=== PATIENT | male | born 1950 | race Caucasian/White ===

== ENCOUNTER 2017-09-29 07:58 | Day surgery (SDC) | END 2017-09-29 10:24 | disposition home or self-care (01) ==

== ENCOUNTER 2018-07-09 10:30 | Inpatient (IN) | payer MEDICARE, OTHER ==
[~2018-07-09] VITALS: Ht 167.6 cm; Wt 154.4 kg
[~2018-07-09 10:30] MED LIST: AMIT10TA6; ASPI-727; BENA5TAB33; CRES5; FELO2.5T3; HYDR25TA6; METF500T3; METO5VIA28; PIOG15TA12
--- NOTE | 2018-07-09 12:35 | ERD ---
ER Documentation Chief Complaint Chief Complaint right arm swelling, red, hot to touch sent by Dr. Libby DYE The patient is 68-year-old male, presenting to the ER because of right breast and right forearm redness and swelling for the last 6 weeks, has been taking antibiotic for the last 8 days with minimal response, seen by his physician Dr. Souza today who was sent him to the ER. He also had right breast biopsy, awaiting for results. He denies fever, chills, neck pain, chest pain, nipple discharge, abdominal pain, vomiting, dizzy, diarrhea. He does not smoke nor drink Past medical history: Dyslipidemia, diabetes mellitus, hypertension, CAD, hypothyroidism Past surgical history: CABG ROS All systems reviewed and are negative except as per history of present illness. Medications Home Meds Reported Medications Aspirin* (Aspirin* EC) 81 Mg Tablet.dr, 81 MG PO DAILY, TAB 07/09/18 Levothyroxine Sodium* (Levothyroxine Sodium*) 25 Mcg Tablet, 25 MCG PO BEFORE BREAKFAST, #30 TAB 07/09/18 Tamsulosin Hcl* (Flomax*) 0.4 Mg Cap.er.24h, 0.4 MG PO HS, CAP 07/09/18 Nortriptyline Hcl* (Nortriptyline Hcl*) 10 Mg Capsule, 10 MG PO HS, CAP 07/09/18 Pioglitazone Hcl* (Pioglitazone Hcl*) 45 Mg Tablet, 45 MG PO DAILY, TAB 07/09/18 Atorvastatin* (Atorvastatin*) 40 Mg Tablet, 40 MG PO QHS, #30 TAB 07/09/18 Metoprolol Succinate* (Toprol XL*) 50 Mg Tab.er.24h, 50 MG PO DAILY, #30 TAB 07/09/18 Hydrochlorothiazide* (Hydrochlorothiazide*) 25 Mg Tab, 25 MG PO DAILY, #30 TAB 07/09/18 Metformin Hcl* (Metformin Hcl*) 1,000 Mg Tablet, 1000 MG PO WITH BREAKFAST DINNE, #60 TAB 07/09/18 Cilostazol* (Cilostazol*) 100 Mg Tablet, 100 MG PO BID, TAB 07/09/18 Amlodipine Besylate* (Norvasc*) 10 Mg Tablet, 10 MG PO DAILY, TAB 07/09/18 Losartan Potassium* (Losartan Potassium*) 50 Mg Tablet, 50 MG PO DAILY, TAB 07/09/18 Discontinued Reported Medications Amitriptyline Hcl* (Amitriptyline Hcl*) 10 Mg Tablet 02/08/10 Rosuvastatin Calcium* (Crestor*) 5 Mg Tablet 02/08/10 Aspirin (Adult Aspirin) 81 Mg Tab.chew 02/08/10 Pioglitazone Hcl* (Actos*) 15 Mg Tablet 02/08/10 Felodipine* (Felodipine*) 2.5 Mg Tab.sr.24h 02/08/10 Benazepril Hcl* (Benazepril Hcl*) 5 Mg Tablet 02/08/10 Hydrochlorothiazide (Hydrochlorothiazide) 25 Mg Tablet 02/08/10 Metoprolol Tartrate* (Lopressor* Inj) 5 Mg/5 Ml Soln 02/08/10 Metformin* (Glucophage* XR) 500 Mg Tab.sr.24h 02/08/10 Allergies Allergies: Coded Allergies: No Known Allergies (Verified Allergy, Mild, 07/09/18) PMhx/Soc History of Surgery: Yes (CAD BYPASS GRAFT) Anesthesia Reaction: No Hx Neurological Disorder: No Hx Respiratory Disorders: No Hx Cardiac Disorders: Yes (HYPERTENSION) Hx Psychiatric Problems: No Hx Miscellaneous Medical Probl: Yes (HYPERLIPIDEMIA) Hx Alcohol Use: No Hx Substance Use: No Hx Tobacco Use: Yes Physical Exam Vitals Vital Signs Date Temp Pulse Resp B/P (MAP) Pulse Ox O2 O2 Flow FiO2 Time Delivery Rate 07/09/18 89 17 142/68 100 Room Air 14:21 (92) 07/09/18 97.4 101 18 143/66 98 10:35 (91) Physical Exam Const: No acute distress. Head: Atraumatic. Eyes: Normal Conjunctiva. ENT: Normal External Ears, Nose and Mouth. Neck: Full range of motion. No meningismus. Resp: Clear to auscultation bilaterally. Cardio: Regular rate and rhythm. Right breasts is erythematous, no crepitus Abd: Soft, non distended, normal bowel sounds, non tender. Skin: No petechiae or rashes. Back: No midline or flank tenderness. Ext: Right upper extremity is edematous/erythematous, no crepitus Neur: Awake and alert. No focal deficit Psych: Normal Mood and Affect. Result Diagram: 07/09/18 1346 07/09/18 1346 Results 24 hrs Laboratory Tests Test 07/09/18 13:46 White Blood Count 4.3 10^3/ul Red Blood Count 3.93 10^6/ul Hemoglobin 11.8 g/dl Hematocrit 37.4 % Mean Corpuscular Volume 95.2 fl Mean Corpuscular Hemoglobin 30.0 pg Mean Corpuscular Hemoglobin Concent 31.6 g/dl Red Cell Distribution Width 15.9 % Platelet Count 191 10^3/UL Mean Platelet Volume 9.7 fl Immature Granulocytes % 0.200 % Neutrophils % 60.2 % Lymphocytes % 23.7 % Monocytes % 10.5 % Eosinophils % 4.7 % Basophils % 0.7 % Nucleated Red Blood Cells % 0.0 /100WBC Immature Granulocytes # 0.010 10^3/ul Neutrophils # 2.6 10^3/ul Lymphocytes # 1.0 10^3/ul Monocytes # 0.5 10^3/ul Eosinophils # 0.2 10^3/ul Basophils # 0.0 10^3/ul Nucleated Red Blood Cells # 0.0 10^3/ul Sodium Level 141 mmol/L Potassium Level 4.1 mmol/L Chloride Level 106 mmol/L Carbon Dioxide Level 27 mmol/L Anion Gap 8 Blood Urea Nitrogen 18 mg/dl Creatinine 0.75 mg/dl Est Glomerular Filtrat Rate mL/min > 60 mL/min Glucose Level 119 mg/dl Calcium Level 9.3 mg/dl Current Medications Medications Dose Sig/Billy Start Time Status Last (Trade) Ordered Route PRN Stop Time Admin Dose Reason Admin 150 ml @ ONCE ONCE 07/09/18 DC Levofloxacin/ 100 mls/hr IVPB 15:00 07/09/18 Dextrose 15:20 Vancomycin 250 ml @ ONCE ONCE 07/09/18 UNV HCl 125 mls/hr IVPB 15:00 07/09/18 16:59 Amlodipine 10 mg DAILY PO 07/10/18 Besylate 09:00 (Norvasc) Aspirin 81 mg DAILY PO 07/10/18 (Halfprin) 09:00 40 mg QHS PO 07/09/18 Atorvastatin 21:00 Calcium (Lipitor) Cilostazol 100 mg BID PO 07/09/18 (Pletal) 21:00 25 mg DAILY PO 07/10/18 Hydrochloroth 09:00 iazide (Hydrochlorot hiazide) 25 mcg BEFORE 07/10/18 Levothyroxine BREAKFAST 07:00 Sodium PO (Synthroid) Losartan 50 mg DAILY PO 07/10/18 Potassium 09:00 (Cozaar) Metoprolol 50 mg DAILY PO 07/10/18 Succinate 09:00 (Toprol Xl) 10 mg HS PO 07/09/18 Nortriptyline 21:00 HCl (Aventyl) Tamsulosin 0.4 mg HS PO 07/09/18 HCl 21:00 (Flomax) IV Flush 3 ml PER 07/09/18 (NS 3 ml) PROTOCOL IV 15:30 Ondansetron 4 mg Q6H PRN 07/09/18 HCl (Zofran IV 15:30 Inj) NAUSEA/VOMITI NG 650 mg Q6H PRN 07/09/18 Acetaminophen PO .PAIN 1-3 15:30 (Tylenol OR TEMP Tab) 1 tab Q6H PRN 07/09/18 Acetaminophen PO .PAIN 4-6 15:30 / Hydrocodone Bitart ([place] (5/325)) Morphine 2 mg Q4H PRN 07/09/18 Sulfate IV .PAIN 15:30 (morphine) 7-10 Vancomycin VANCOMYCIN PER 07/09/18 UNV HCl (Vanco PER PHARMACY PROTOCOL XX 15:30 Iv Per Pharmacy) Piperacillin 100 ml @ Q6 IVPB 07/09/18 Sod/ 200 mls/hr 18:00 Tazobactam Sod Sodium 1,000 ml @ Q10H IV 07/09/18 Chloride 100 mls/hr 16:00 07/10/18 01:59 Procedures/[place] [id number] Radiology Main Line: [phone] DIAGNOSTIC IMAGING REPORT Patient: HUMBERTO MACIEL : 1950 Age: 68 Sex: M MR #: [id number] DOS: 07/09/18 1253 Ordering MD: EDVIN ROSENBAUM MD Location: E/R Room/Bed: PROCEDURE: US upper extremity Venous. CLINICAL INDICATION: Right arm edema TECHNIQUE: Multiple sonographic images of the right upper extremity venous system was obtained utilizing grayscale, color-flow, compressive sonography and doppler imaging with augmentation. The images were reviewed on a PACS workstation. COMPARISON: None. FINDINGS: The study is limited due to the patient's body habitus and edema. There is normal compressibility and flow within the right internal jugular vein, subclavian vein, axillary vein, brachial, basilic, cephalic , radial and ulnar veins. RPTAT: AA IMPRESSION: No sonographic evidence for venous thrombosis. .Juwan Snyder MD, MD Date Time Electronically viewed and signed by .Juwan Snyder MD, on 07/09/2018 14:03 .S/ CC: EDVIN ROSENBAUM MD [id number] MEDICAL MAKING DECISION: The baseline he is a 68-year-old male, presenting with acute RUE cellulitis, acute right mastitis, failed outpatient therapy. He was treated with Levaquin IV and vancomycin IV The differential diagnoses considered include but are not limited to cellulitis, abscess, DVT, malignancy, lymphedema Departure Diagnosis: Primary Impression: Cellulitis Additional Impressions: Mastitis, right, acute Leukopenia Anemia Condition: Stable Comments I discussed the findings with the patient. I discussed the patient with Dr Tapia at 2:50p , who was made aware of the lab, the treatment, the patient condition. The patient is admitted to [facility] Disclaimer: Inadvertent spelling and grammatical errors are likely due to EHR/dictation software use and do not reflect on the overall quality of patient care. Also, please note that the electronic time recorded on this note does not necessarily reflect the actual time of the patient encounter. EDVIN ROSENBAUM MD July 09, 2018 12:35
[2018-07-09] MEDS ORDERED: LOSA50TA14 PO (14:11)
[2018-07-09] MEDS ORDERED: AMLO-218 PO (14:11)
[2018-07-09] MEDS ORDERED: CILO100T PO (14:12)
[2018-07-09] MEDS ORDERED: METF100010 PO (14:13)
[2018-07-09] MEDS ORDERED: HYDR25TA6 PO (14:13)
[2018-07-09] MEDS ORDERED: METO-319 PO (14:14)
[2018-07-09] MEDS ORDERED: PIOG45TA64 PO (14:15)
[2018-07-09] MEDS ORDERED: ATOR40TA68 PO (14:15)
[2018-07-09] MEDS ORDERED: TAMS-14 PO (14:16)
[2018-07-09] MEDS ORDERED: NORT10CA2 PO (14:16)
[2018-07-09] MEDS ORDERED: LEVO25TA6 PO (14:17)
[2018-07-09] MEDS ORDERED: ASPI-817 PO (14:17)
[2018-07-09] MEDS ORDERED: LEVOFLOXACIN 750MG/D5W (PMX) 150 ML IVPB ONE (15:00)
[2018-07-09] MEDS ORDERED: VANCOMYCIN 1 GM (PMX) 250 ML IVPB ONE (15:00)
[2018-07-09] MEDS ORDERED: HYDROCODONE/APAP (5/325) TAB PO PRN (15:30)
[2018-07-09] MEDS ORDERED: ONDANSETRON 4 MG INJ IV PRN (15:30)
[2018-07-09] MEDS ORDERED: NACL 0.9% 3 ML SYG IV SCH (15:30)
[2018-07-09] MEDS ORDERED: VANCOMYCIN IV PER PHARMACY XX SCH (15:30)
[2018-07-09] MEDS ORDERED: ACETAMINOPHEN 325 MG TAB PO PRN (15:30)
[2018-07-09] MEDS ORDERED: morphine 2 MG INJ IV PRN (15:30)
--- NOTE | 2018-07-09 15:39 | PN ---
Date/Time of Note Date/Time of Note DATE: 07/09/18 TIME: 15:39 Objective Vitals Vital Signs Date Temp Pulse Resp B/P (MAP) Pulse Ox O2 O2 Flow FiO2 Time Delivery Rate 07/09/18 89 17 142/68 100 Room Air 14:21 (92) 07/09/18 97.4 10:35 Results Result Diagram: 07/09/18 1346 07/09/18 1346 Medications Medications Current Medications Vancomycin HCl 250 ml @ 125 mls/hr ONCE ONCE IVPB ; Start 07/09/18 at 15:00; Stop 07/09/18 at 16:59; Status UNV Amlodipine Besylate (Norvasc) 10 mg DAILY PO ; Start 07/10/18 at 09:00; Status UNV Aspirin (Halfprin) 81 mg DAILY PO ; Start 07/10/18 at 09:00; Status UNV Atorvastatin Calcium (Lipitor) 40 mg QHS PO ; Start 07/09/18 at 21:00; Status UNV Cilostazol (Pletal) 100 mg BID PO ; Start 07/09/18 at 21:00; Status UNV Hydrochlorothiazide (Hydrochlorothiazide) 25 mg DAILY PO ; Start 07/10/18 at 0 9:00; Status UNV Levothyroxine Sodium (Synthroid) 25 mcg BEFORE BREAKFAST PO ; Start 07/10/18 at 07:00; Status UNV Losartan Potassium (Cozaar) 50 mg DAILY PO ; Start 07/10/18 at 09:00; Status UNV Metoprolol Succinate (Toprol Xl) 50 mg DAILY PO ; Start 07/10/18 at 09:00; Status UNV Nortriptyline HCl (Aventyl) 10 mg HS PO ; Start 07/09/18 at 21:00; Status UNV Tamsulosin HCl (Flomax) 0.4 mg HS PO ; Start 07/09/18 at 21:00; Status UNV IV Flush (NS 3 ml) 3 ml PER PROTOCOL IV ; Start 07/09/18 at 15:30; Status UNV Ondansetron HCl (Zofran Inj) 4 mg Q6H PRN IV NAUSEA/VOMITING; Start 07/09/18 at 15:30; Status UNV Acetaminophen (Tylenol Tab) 650 mg Q6H PRN PO .PAIN 1-3 OR TEMP; Start 07/09/18 at 15:30; Status UNV Acetaminophen/ Hydrocodone Bitart ([place] (5/325)) 1 tab Q6H PRN PO .PAIN 4-6; Start 07/09/18 at 15:30; Status UNV Morphine Sulfate (morphine) 2 mg Q4H PRN IV .PAIN 7-10; Start 07/09/18 at 15:30; Status UNV Vancomycin HCl (Vanco Iv Per Pharmacy) VANCOMYCIN PER PHARMACY PER PROTOCOL XX ; Start 07/09/18 at 15:30; Status UNV Piperacillin Sod/ Tazobactam Sod 100 ml @ 200 mls/hr Q6 IVPB ; Start 07/09/18 at 18:00; Status UNV Lines/Catheters IV Catheter Type: Fraz[place] in Place: No Assessment/Plan Hospital Course Patient is a male with a past medical history significant for coronary artery bypass graft, BPH, hypertension, dyslipidemia, mood disorder, hypothyroidism who was sent in by his primary care provider for failing outpatient antibiotics for right breast cellulitis versus abscess. Patient does state that he has been following up in the office with his primary care provider and he actually had a biopsy of his right breast issue last Monday. Patient states that is becoming increasingly inflamed and erythematous which is why he went back to his primary care doctor. Per primary care doctor he stated that there was pus seen in the office. Patient also states that he has right upper extremity redness however that has been going on for the past month and a half and he is being addressed with his primary care provider as well. Otherwise patient feels within normal limits, denies chest pain other than where the cellulitis is located, denies shortness of breath, dizziness, abdominal pain, bowel or bladder dysfunction, leg pain. Objective Physical exam General: Patient is laying in bed and answers questions appropriately Mentation: Patient is alert and oriented 4, Head: Normocephalic atraumatic Eyes: EOMI, pupils reactive to light Neck: Supple, nontender, midline Respiratory: Clear to auscultation bilaterally Cardiovascular: regular rate, no obvious murmurs Gastrointestinal: non-tender to palpation, bowel sounds heard. Neurological: Moves all extremities spontaneously Skin: Right breast area, erythematous, no visualized pustular drainage. Right upper extremity forearm erythematous. Assessment and plan Right breast cellulitis with possible abscess -Patient received mammogram outpatient, biopsy was done by general surgeon last week, patient attempted Keflex outpatient however continued to be erythematous and drained pus. -Broad-spectrum IV antibiotic -Infectious disease consulted -CT scan with contrast ordered for possible abscess -Patient's general surgeon has been consulted, Dr. Mackay Right forearm erythema -Subacute at this time, been going on for approximately 6 weeks -We will also get CT of the right upper extremity to evaluate. -Duplex venous negative for DVT Coronary artery disease with history of CABG in 1999 -Continue home medications Diabetes mellitus -Patient's transactional attorney will be consulted, insulin for now Hypothyroidism -Continue home meds Mood disorder -Continue home meds Dyslipidemia -Continue home meds Hypertension -Continue home meds Disposition -Follow-up with CT scans, awaiting infectious disease and general surgery re commendations. REBECCA VO July 09, 2018 15:39
[2018-07-09] MEDS ORDERED: SOD CHLORIDE 0.9% 100 ML ONE (17:05)
[2018-07-09] MEDS ORDERED: IOHEXOL 300MG/ML 150 ML BTL ONE (17:05)
--- NOTE | 2018-07-09 18:12 | CONS ---
DATE OF ADMISSION: 07/09/2018 DATE OF CONSULTATION: 07/09/2018 TYPE OF CONSULTATION: Infectious disease. REASON FOR CONSULTATION: Antibiotic management. HISTORY OF PRESENT ILLNESS: Zelalem Castro is a 68-year-old male who presents with right arm swelling and sent in by Dr. Torres. His past problems include: 1. Coronary artery disease. 2. Status post coronary artery bypass grafting. 3. Hypertension. 4. Hyperlipidemia. Acutely, the patient comes in with cellulitis of the right arm. PAST MEDICAL HISTORY: Significant for: 1. Coronary artery disease. 2. Coronary artery bypass grafting. 3. BPH. 4. Hypertension. 5. Hyperlipidemia. 6. Mood disorder. 7. Hypothyroidism. FAMILY HISTORY: Noncontributory. SOCIAL HISTORY: He does smoke. He does not drink or abuse drugs. ALLERGIES: NONE TO PENICILLIN, SULFA OR FOODS. MEDICATIONS: Per chart. REVIEW OF SYSTEMS: Noncontributory. PHYSICAL EXAMINATION: GENERAL: The patient is a well-developed, well-nourished male who is alert, responsive, is lying in bed, in no acute distress. VITAL SIGNS: Stable. He is afebrile. SKIN: Without generalized rash. HEENT: Within normal limits. NECK: Supple. LYMPH NODES: None palpable. CHEST: Decreased breath sounds at the bases. THORAX: His right breast is erythematous. No visualized pustular drainage. HEART: Without murmur or gallop. ABDOMEN: Soft, nontender without organosplenomegaly or masses. EXTREMITIES: Without cyanosis, clubbing or edema. The right arm is swollen and red as noted. RECTAL AND GENITAL: Deferred. NEUROLOGIC: No focal neurological abnormality. IMPRESSION AND PLAN: The patient presents now with right lower extremity cellulitis. The patient wa s placed on vancomycin and Zosyn. The patient had a history of right breast cellulitis versus absces s, patient of Dr. Torres. The patient was given antibiotics for right breast cellulitis versus absc ess. He had a biopsy of the right breast tissue last Monday. It became increasingly inflamed and erythematous, which is why he went back to his primary care physician who noted some pus in the woun d itself. He has right upper extremity redness that has been going on for the past month and a half and this has been a problem that he is complaining of at this point. The patient has right breast ce llulitis with possible abscess. He received a mammogram, outpatient biopsy by I believe a general pineda rgeon probably Dr. Mackay. He was on Keflex as an outpatient, but the breast area became erythemato us and increasingly purulent. CT scan with contrast was ordered for possible abscess and Dr. Mackay was consulted, as well. He has right forearm erythema which has been going on for approximately 6 w eeks. We will get a CT scan of the right upper extremity to evaluate, duplex venous negative for xavi p venous thrombosis, coronary artery disease. He has numerous other problems. I will dictate my fin dings to Dr. Torres and also to Dr. Mackay. Dictated By: JULIAN BERRY MD, JD/ESTHER Conf#: [id number] DID#: [id number] CC: EDVIN ROSENBAUM MD;*End*
[2018-07-09 18:56] VITALS: BP 138/63; RESP 18
[2018-07-09 19:30] VITALS: BP 125/59; PULSE 103; RESP 18
--- NOTE | 2018-07-09 19:44 | CONS ---
Assessment/Plan Assessment/Plan Problems: (1) Type 2 diabetes mellitus without complications Status: Chronic Comment: Has been in good control on metformin alone as outpt. w/ good A1c. Will cont. metformin and add tradjenta while in-house for optimal control through this infection. (2) Hypothyroidism Status: Chronic Comment: Diagnosis in-doubt of hypothyroidism considering 153.6 kg male requiring only 25 mcg/d of LT4. However, have never seen any reason to stop this and thyroid hormone levels always good on this dose. Will cont. (3) Cellulitis Status: Acute Comment: Primary team to manage. Agree w/ vancomycin Consultation Date/Type/Reason Admit Date/Time July 09, 2018 at 15:07 Date of Consultation: July 09, 2018 Type of Consult Endocrinology Reason for Consultation T2DM management Requesting Provider: REBECCA VO Date/Time of Note DATE: 07/09/18 TIME: 19:32 Hx of Present Illness 68 y/o H M w/ h/o morbid obesity, T2DM, CAD, HTN, hyperlipidemia, hypothyroidism, lumbar disease, in [facility] until 2-3 weeks ago when he discovered swelling RUE. This was associated w/ development of painless erythema and edema overlying R lower breast extending into his R axilla. Pt. saw me in office 2 weeks ago. Referred for mammogram and breast DANIEL which was (-) for mass. Last week saw g-surg who did biopsy and derm who felt this was group-A strep cellulitis and recommended if no improvement on po cephalexin to admit for IV vanco. Pt. returns today w/o improvement. Expressing pus from biopsy site. Admitted. Constitutional: no complaints Eyes: no complaints ENT: no complaints Respiratory: no complaints Cardiovascular: no complaints Gastrointestinal: no complaints Genitourinary: no complaints Musculoskeletal: swelling Skin: erythema Neurologic: no complaints Past Medical History Medical History: coronary artery disease, diabetes, high cholesterol, hypertension, hypothyroid Home Meds Reported Medications Aspirin* (Aspirin* EC) 81 Mg Tablet.dr, 81 MG PO DAILY, TAB 07/09/18 Levothyroxine Sodium* (Levothyroxine Sodium*) 25 Mcg Tablet, 25 MCG PO BEFORE BREAKFAST, #30 TAB 07/09/18 Tamsulosin Hcl* (Flomax*) 0.4 Mg Cap.er.24h, 0.4 MG PO HS, CAP 5/6/19 Nortriptyline Hcl* (Nortriptyline Hcl*) 10 Mg Capsule, 10 MG PO HS, CAP 07/09/18 Pioglitazone Hcl* (Pioglitazone Hcl*) 45 Mg Tablet, 45 MG PO DAILY, TAB 07/09/18 Atorvastatin* (Atorvastatin*) 40 Mg Tablet, 40 MG PO QHS, #30 TAB 07/09/18 Metoprolol Succinate* (Toprol XL*) 50 Mg Tab.er.24h, 50 MG PO DAILY, #30 TAB 07/09/18 Hydrochlorothiazide* (Hydrochlorothiazide*) 25 Mg Tab, 25 MG PO DAILY, #30 TAB 07/09/18 Metformin Hcl* (Metformin Hcl*) 1,000 Mg Tablet, 1000 MG PO WITH BREAKFAST DINNE, #60 TAB 07/09/18 Cilostazol* (Cilostazol*) 100 Mg Tablet, 100 MG PO BID, TAB 07/09/18 Amlodipine Besylate* (Norvasc*) 10 Mg Tablet, 10 MG PO DAILY, TAB 07/09/18 Losartan Potassium* (Losartan Potassium*) 50 Mg Tablet, 50 MG PO DAILY, TAB 07/09/18 Discontinued Reported Medications Amitriptyline Hcl* (Amitriptyline Hcl*) 10 Mg Tablet 02/08/10 Rosuvastatin Calcium* (Crestor*) 5 Mg Tablet 02/08/10 Aspirin (Adult Aspirin) 81 Mg Tab.chew 02/08/10 Pioglitazone Hcl* (Actos*) 15 Mg Tablet 02/08/10 Felodipine* (Felodipine*) 2.5 Mg Tab.sr.24h 02/08/10 Benazepril Hcl* (Benazepril Hcl*) 5 Mg Tablet 02/08/10 Hydrochlorothiazide (Hydrochlorothiazide) 25 Mg Tablet 02/08/10 Metoprolol Tartrate* (Lopressor* Inj) 5 Mg/5 Ml Soln 02/08/10 Metformin* (Glucophage* XR) 500 Mg Tab.sr.24h 02/08/10 Medications Current Medications Amlodipine Besylate (Norvasc) 10 mg DAILY PO ; Start 07/10/18 at 09:00 Aspirin (Halfprin) 81 mg DAILY PO ; Start 07/10/18 at 09:00 Atorvastatin Calcium (Lipitor) 40 mg QHS PO ; Start 07/09/18 at 21:00 Cilostazol (Pletal) 100 mg BID PO ; Start 07/09/18 at 21:00 Hydrochlorothiazide (Hydrochlorothiazide) 25 mg DAILY PO ; Start 07/10/18 at 09:00 Levothyroxine Sodium (Synthroid) 25 mcg BEFORE BREAKFAST PO ; Start 07/10/18 at 07:00 Losartan Potassium (Cozaar) 50 mg DAILY PO ; Start 07/10/18 at 09:00 Metoprolol Succinate (Toprol Xl) 50 mg DAILY PO ; Start 07/10/18 at 09:00 Nortriptyline HCl (Aventyl) 10 mg HS PO ; Start 07/09/18 at 21:00 Tamsulosin HCl (Flomax) 0.4 mg HS PO ; Start 07/09/18 at 21:00 IV Flush (NS 3 ml) 3 ml PER PROTOCOL IV ; Start 07/09/18 at 15:30 Ondansetron HCl (Zofran Inj) 4 mg Q6H PRN IV NAUSEA/VOMITING; Start 07/09/18 at 15:30 Acetaminophen (Tylenol Tab) 650 mg Q6H PRN PO .PAIN 1-3 OR TEMP; Start 07/09/18 at 15:30 Acetaminophen/ Hydrocodone Bitart ([place] (5/325)) 1 tab Q6H PRN PO .PAIN 4-6; Start 07/09/18 at 15:30 Morphine Sulfate (morphine) 2 mg Q4H PRN IV .PAIN 7-10; Start 07/09/18 at 15:30 Vancomycin HCl (Vanco Iv Per Pharmacy) VANCOMYCIN PER PHARMACY PER PROTOCOL XX ; Start 07/09/18 at 15:30; Status UNV Piperacillin Sod/ Tazobactam Sod 100 ml @ 200 mls/hr Q6 IVPB ; Start 07/09/18 at 18:00 Sodium Chloride 1,000 ml @ 100 mls/hr Q10H IV ; Start 07/09/18 at 16:00; Stop 07/10/18 at 01:59 Allergies: Coded Allergies: No Known Allergies (Verified Allergy, Mild, 07/09/18) Past Surgical History Past Surgical Hx: coronary bypass surgery, other (tonsillectomy) Family History Significant Family History: heart disease, cancer, diabetes, other (Alzheimer's) Social History b. 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, no children Alcohol Use: occasionally Smoking Status: Never smoker Drug Use: none Exam/Review of Systems Exam Vitals VS - Last 72 Hours, by Label Date Temp Pulse Resp B/P (MAP) Pulse Ox O2 O2 Flow FiO2 Time Delivery Rate 07/09/18 98.1 103 18 125/59 100 19:30 (81) 07/09/18 98.2 18 138/63 97 Room Air 18:56 (88) 07/09/18 100 18 139/69 100 Room Air 18:09 (92) 07/09/18 89 17 142/68 100 Room Air 14:21 (92) 07/09/18 97.4 101 18 143/66 98 10:35 (91) Vital Signs Date Temp Pulse Resp B/P (MAP) Pulse Ox O2 O2 Flow FiO2 Time Delivery Rate 07/09/18 98.1 103 18 125/59 100 19:30 (81) 07/09/18 Room Air 18:56 Constitutional: alert, oriented, obese Psych: no complaints, nl mood/affect Eyes: nl conjunctiva, EOMI, nl lids, nl sclera, PERRL ENMT: nl external ears & nose, mucosa pink and moist Neck: supple, non-tender; No bruits, No masses, No thyromegaly Respiratory: clear to auscultation, normal air movement Cardiovascular: regular rate and rhythm, nl pulses; No edema, No murmurs/extra sounds, No rub Gastrointestinal: soft, nl liver, spleen, non-tender, bowel sounds; No mass, No rebound or guarding Musculoskeletal: nl extremities to inspection Extremities: normal pulses, edema (2+ RUE); No cyanosis, No clubbing Skin: other (erythema and edema of R breast and RUE) Results Result Diagram: 07/09/18 1346 07/09/18 1346 Results 24hrs Laboratory Tests Test 07/09/18 13:46 White Blood Count 4.3 L Red Blood Count 3.93 L Hemoglobin 11.8 L Hematocrit 37.4 L Mean Corpuscular Volume 95.2 Mean Corpuscular Hemoglobin 30.0 Mean Corpuscular Hemoglobin Concent 31.6 L Red Cell Distribution Width 15.9 H Platelet Count 191 Mean Platelet Volume 9.7 Immature Granulocytes % 0.200 Neutrophils % 60.2 Lymphocytes % 23.7 Monocytes % 10.5 Eosinophils % 4.7 Basophils % 0.7 Nucleated Red Blood Cells % 0.0 Immature Granulocytes # 0.010 Neutrophils # 2.6 Lymphocytes # 1.0 Monocytes # 0.5 Eosinophils # 0.2 Basophils # 0.0 Nucleated Red Blood Cells # 0.0 Sodium Level 141 Potassium Level 4.1 Chloride Level 106 Carbon Dioxide Level 27 Anion Gap 8 Blood Urea Nitrogen 18 Creatinine 0.75 Est Glomerular Filtrat Rate mL/min > 60 Glucose Level 119 Calcium Level 9.3 Medications Medication Current Medications Amlodipine Besylate (Norvasc) 10 mg DAILY PO ; Start 07/10/18 at 09:00 Aspirin (Halfprin) 81 mg DAILY PO ; Start 07/10/18 at 09:00 Atorvastatin Calcium (Lipitor) 40 mg QHS PO ; Start 07/09/18 at 21:00 Cilostazol (Pletal) 100 mg BID PO ; Start 07/09/18 at 21:00 Hydrochlorothiazide (Hydrochlorothiazide) 25 mg DAILY PO ; Start 07/10/18 at 0 9:00 Levothyroxine Sodium (Synthroid) 25 mcg BEFORE BREAKFAST PO ; Start 07/10/18 at 07:00 Losartan Potassium (Cozaar) 50 mg DAILY PO ; Start 07/10/18 at 09:00 Metoprolol Succinate (Toprol Xl) 50 mg DAILY PO ; Start 07/10/18 at 09:00 Nortriptyline HCl (Aventyl) 10 mg HS PO ; Start 07/09/18 at 21:00 Tamsulosin HCl (Flomax) 0.4 mg HS PO ; Start 07/09/18 at 21:00 IV Flush (NS 3 ml) 3 ml PER PROTOCOL IV ; Start 07/09/18 at 15:30 Ondansetron HCl (Zofran Inj) 4 mg Q6H PRN IV NAUSEA/VOMITING; Start 07/09/18 at 15:30 Acetaminophen (Tylenol Tab) 650 mg Q6H PRN PO .PAIN 1-3 OR TEMP; Start 07/09/18 at 15:30 Acetaminophen/ Hydrocodone Bitart ([place] (5/325)) 1 tab Q6H PRN PO .PAIN 4-6; Start 07/09/18 at 15:30 Morphine Sulfate (morphine) 2 mg Q4H PRN IV .PAIN 7-10; Start 07/09/18 at 15:30 Vancomycin HCl (Vanco Iv Per Pharmacy) VANCOMYCIN PER PHARMACY PER PROTOCOL XX ; Start 07/09/18 at 15:30; Status UNV Piperacillin Sod/ Tazobactam Sod 100 ml @ 200 mls/hr Q6 IVPB ; Start 07/09/18 at 18:00 Sodium Chloride 1,000 ml @ 100 mls/hr Q10H IV ; Start 07/09/18 at 16:00; Stop 07/10/18 at 01:59 EDVIN MORGAN MD July 09, 2018 19:44
[2018-07-09 19:54] VITALS: Ht 167.6 cm; Wt 154.4 kg
[2018-07-09] MEDS ORDERED: VANCOMYCIN HCL 2 GM in SOD CHLORIDE 0.9% 500 ML IVPB SCH (20:00)
[2018-07-09] MEDS ORDERED: GLUCAGON 1 MG INJ IM PRN (20:30)
[2018-07-09] MEDS ORDERED: GLUCOSE GEL 15 GRAM TUBE PO PRN ×2 (20:30)
[2018-07-09] MEDS ORDERED: GLUCOSE GEL 15 GRAM TUBE BUCCAL PRN (20:30)
[2018-07-09] MEDS ORDERED: DEXTROSE 50% 50 ML SYRINGE IV PRN ×2 (20:30)
[2018-07-09] MEDS: SOD CHLORIDE 0.9% 1,000 ML IV SCH (20:43)
[2018-07-09] MEDS: PIPER-TAZO 3.375 GM IV (PMX) 100 ML IVPB SCH (20:44)
[2018-07-09] MEDS: ATORVASTATIN 40 MG TAB PO SCH (20:45)
[2018-07-09] MEDS: INSULIN ASPART [NOVOLOG] 3 ML PEN SC SCH (20:45)
[2018-07-09] MEDS: CILOSTAZOL 100 MG TAB PO SCH (20:45)
[2018-07-09] MEDS: TAMSULOSIN (SR) 0.4 MG CAP PO SCH (20:45)
[2018-07-09] MEDS: metFORMIN (XR) 500 MG TAB PO SCH ×2 (21:00→22:08)
--- NOTE | 2018-07-09 21:24 | CONS ---
Assessment/Plan Assessment/Plan Hospital Course (Demo Recall) 1. RUE and chest wall edema and erythema. DDx: cellulitis, vascular, infiltrating ca, other. Punch bx of skin done last week, results pending. Duplex was ordered last week. -vascular imaging -await bx results -iv abx -nutritional optimization 2. Right chest wall wound with dc at site of bx -as above -local care 3. Morbid obesity, BMI 55. Discussed with him surgical options of weight loss but he is not excited for surgery. 4. DMII, HTN, HL -nutritional optimization -weight loss encouraged 5. Back pain -weight loss encouraged -PT 6. Hypothyroidism -hormone repletion 7. CAD hx s/p 4x CABG -cardiac optimization -weight loss encouraged Thank you very much for consulting me in this patient's care, Consultation Date/Type/Reason Admit Date/Time July 09, 2018 at 15:07 Date of Consultation: July 09, 2018 Type of Consult G. Surgical Reason for Consultation Right chest wall and RUE erythema and edema (probable cellulitis) Right chest bx site with dc BMI 55 Requesting Provider: REBECCA VO Date/Time of Note DATE: 07/09/18 TIME: 21:09 Hx of Present Illness Zelalem Castro is a 68 y/o with with significant comorbidities known to me from last week for evaluation of 2-3 weeks of swelling RUE associated w/ development of painless erythema and edema overlying R lower breast extending into his R axilla. Mammogram and breast DANIEL were negative for mass. Last week I performed a punch biopsy. He started oral abx last week but since not improving, being admitted for iv abx. Denies f/c/n/v/cp/sob/cough/sz/bleeding/bloating/visual or neurological changes. No dysuria or bowel habit changes. No trauma or sick contacts. Surgical consult is obtained for further evaluation and treatment. 12 point ros negative unless otherwise addressed in chart Past Medical History BMI 55 DM II HTN HL Hypothyroidism Lumbar back pain/disease CAD Right chest & RUE erythema/swelling Aspirin use Right chest was wound after punch bx Home Meds Reported Medications Aspirin* (Aspirin* EC) 81 Mg Tablet., 81 MG PO DAILY, TAB 07/09/18 Levothyroxine Sodium* (Levothyroxine Sodium*) 25 Mcg Tablet, 25 MCG PO BEFORE BREAKFAST, #30 TAB 07/09/18 Tamsulosin Hcl* (Flomax*) 0.4 Mg Cap.er.24h, 0.4 MG PO HS, CAP 07/09/18 Nortriptyline Hcl* (Nortriptyline Hcl*) 10 Mg Capsule, 10 MG PO HS, CAP 07/09/18 Pioglitazone Hcl* (Pioglitazone Hcl*) 45 Mg Tablet, 45 MG PO DAILY, TAB 07/09/18 Atorvastatin* (Atorvastatin*) 40 Mg Tablet, 40 MG PO QHS, #30 TAB 07/09/18 Metoprolol Succinate* (Toprol XL*) 50 Mg Tab.er.24h, 50 MG PO DAILY, #30 TAB 07/09/18 Hydrochlorothiazide* (Hydrochlorothiazide*) 25 Mg Tab, 25 MG PO DAILY, #30 TAB 07/09/18 Metformin Hcl* (Metformin Hcl*) 1,000 Mg Tablet, 1000 MG PO WITH BREAKFAST DINNE, #60 TAB 07/09/18 Cilostazol* (Cilostazol*) 100 Mg Tablet, 100 MG PO BID, TAB 07/09/18 Amlodipine Besylate* (Norvasc*) 10 Mg Tablet, 10 MG PO DAILY, TAB 07/09/18 Losartan Potassium* (Losartan Potassium*) 50 Mg Tablet, 50 MG PO DAILY, TAB 07/09/18 Discontinued Reported Medications Amitriptyline Hcl* (Amitriptyline Hcl*) 10 Mg Tablet 02/08/10 Rosuvastatin Calcium* (Crestor*) 5 Mg Tablet 02/08/10 Aspirin (Adult Aspirin) 81 Mg Tab.chew 02/08/10 Pioglitazone Hcl* (Actos*) 15 Mg Tablet 02/08/10 Felodipine* (Felodipine*) 2.5 Mg Tab.sr.24h 02/08/10 Benazepril Hcl* (Benazepril Hcl*) 5 Mg Tablet 02/08/10 Hydrochlorothiazide (Hydrochlorothiazide) 25 Mg Tablet 02/08/10 Metoprolol Tartrate* (Lopressor* Inj) 5 Mg/5 Ml Soln 02/08/10 Metformin* (Glucophage* XR) 500 Mg Tab.sr.24h 02/08/10 Medications Current Medications Amlodipine Besylate (Norvasc) 10 mg DAILY PO ; Start 07/10/18 at 09:00 Aspirin (Halfprin) 81 mg DAILY PO ; Start 07/10/18 at 09:00 Atorvastatin Calcium (Lipitor) 40 mg QHS PO Last administered on 07/09/18at 20:45; Admin Dose 40 MG; Start 07/09/18 at 21:00 Cilostazol (Pletal) 100 mg BID PO Last administered on 07/09/18at 20:45; Admin D ose 100 MG; Start 07/09/18 at 21:00 Hydrochlorothiazide (Hydrochlorothiazide) 25 mg DAILY PO ; Start 07/10/18 at 09:00 Levothyroxine Sodium (Synthroid) 25 mcg BEFORE BREAKFAST PO ; Start 07/10/18 at 07:00 Losartan Potassium (Cozaar) 50 mg DAILY PO ; Start 07/10/18 at 09:00 Metoprolol Succinate (Toprol Xl) 50 mg DAILY PO ; Start 07/10/18 at 09:00 Nortriptyline HCl (Aventyl) 10 mg HS PO ; Start 07/09/18 at 21:00 Tamsulosin HCl (Flomax) 0.4 mg HS PO Last administered on 07/09/18at 20:45; Admin Dose 0.4 MG; Start 07/09/18 at 21:00 IV Flush (NS 3 ml) 3 ml PER PROTOCOL IV ; Start 07/09/18 at 15:30 Ondansetron HCl (Zofran Inj) 4 mg Q6H PRN IV NAUSEA/VOMITING; Start 07/09/18 at 15:30 Acetaminophen (Tylenol Tab) 650 mg Q6H PRN PO .PAIN 1-3 OR TEMP; Start 07/09/18 at 15:30 Acetaminophen/ Hydrocodone Bitart ([place] (5/325)) 1 tab Q6H PRN PO .PAIN 4-6; Start 07/09/18 at 15:30 Morphine Sulfate (morphine) 2 mg Q4H PRN IV .PAIN 7-10; Start 07/09/18 at 15:30 Vancomycin HCl (Vanco Iv Per Pharmacy) VANCOMYCIN PER PHARMACY PER PROTOCOL XX ; Start 07/09/18 at 15:30 Piperacillin Sod/ Tazobactam Sod 100 ml @ 200 mls/hr Q6 IVPB Last administered on 07/09/18at 20:44; Admin Dose 200 MLS/HR; Start 07/09/18 at 18:00 Sodium Chloride 1,000 ml @ 100 mls/hr Q10H IV Last administered on 07/09/18at 20:43; Admin Dose 100 MLS/HR; Start 07/09/18 at 16:00; Stop 07/10/18 at 01:59 Vancomycin HCl 2 gm/Sodium Chloride 500 ml @ 125 mls/hr ONCE IVPB ; Start 07/09/18 at 20:00; Stop 07/09/18 at 23:00 Vancomycin HCl 1.5 gm/Sodium Chloride 250 ml @ 83.333 mls/ hr Q12H IVPB ; Start 07/10/18 at 08:00 Metformin HCl (Glucophage Xr) 1,000 mg BID PO ; Start 07/09/18 at 21:00 Linagliptin (Tradjenta) 5 mg DAILY PO ; Start 07/10/18 at 09:00 Insulin Aspart (Novolog Insulin Pen) NOVOLOG *MILD* ALGORITHM WITH MEALS BEDTIME SC ; Start 07/09/18 at 21:00 Miscellaneous Information 1 ea NOTE XX ; Start 07/09/18 at 20:30 Glucose (Glutose) 15 gm Q15M PRN PO DECREASED GLUCOSE; Start 07/09/18 at 20:30 Glucose (Glutose) 22.5 gm Q15M PRN PO DECREASED GLUCOSE; Start 07/09/18 at 20:30 Dextrose (D50w Syringe) 25 ml Q15M PRN IV DECREASED GLUCOSE; Start 07/09/18 at 20:30 Dextrose (D50w Syringe) 50 ml Q15M PRN IV DECREASED GLUCOSE; Start 07/09/18 at 20:30 Glucagon (Glucagen) 1 mg Q15M PRN IM DECREASED GLUCOSE; Start 07/09/18 at 20:30 Glucose (Glutose) 15 gm Q15M PRN BUCCAL DECREASED GLUCOSE; Start 07/09/18 at 20:30 Allergies: Coded Allergies: No Known Allergies (Verified Allergy, Mild, 07/09/18) Past Surgical History Right chest skin punch bx (last week) Coronary bypass surgery x 4v Tonsillectomy Family History Significant Family History: other (Heart disease, cancer, diabetes, other (Alzheimer's)) Social History Born in [facility] [place] [facility] 1988 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 Alcohol Use: occasionally Smoking Status: Never smoker Drug Use: none Exam/Review of Systems Exam Vitals Vital Signs Date Temp Pulse Resp B/P (MAP) Pulse Ox O2 O2 Flow FiO2 Time Delivery Rate 07/09/18 98.1 103 18 125/59 100 19:30 (81) 07/09/18 Room Air 18:56 Constitutional: alert, oriented, obese; No distress Psych: nl mood/affect; No anxiety, No confusion Head: normocephalic, atraumatic Eyes: nl conjunctiva, EOMI, PERRL; No icteric ENMT: nl external ears & nose, nl lips & teeth, mucosa pink and moist Neck: supple; No jvd Respiratory: normal air movement; No congested cough, No labored breathing, No wheezing Cardiovascular: regular rate and rhythm, edema (RUE and chest wall. BLE ) Gastrointestinal: soft, non-tender, other (Obese); No rebound or guarding Musculoskeletal: nl gait and stance; No nl extremities to inspection (RUE edema and erythema), No joint tenderness Extremities: normal pulses, edema; No calf tenderness Neurological: nl mental status, nl speech, nl strength Skin: rash or lesions (RUE and chest wall blanching erythema); No diaphoresis Lymph: nl lymph nodes, nontender Results Result Diagram: 07/09/18 1346 07/09/18 1346 Results 24hrs Laboratory Tests Test 07/09/18 13:46 07/09/18 20:23 White Blood Count 4.3 L Red Blood Count 3.93 L Hemoglobin 11.8 L Hematocrit 37.4 L Mean Corpuscular Volume 95.2 Mean Corpuscular Hemoglobin 30.0 Mean Corpuscular Hemoglobin Concent 31.6 L Red Cell Distribution Width 15.9 H Platelet Count 191 Mean Platelet Volume 9.7 Immature Granulocytes % 0.200 Neutrophils % 60.2 Lymphocytes % 23.7 Monocytes % 10.5 Eosinophils % 4.7 Basophils % 0.7 Nucleated Red Blood Cells % 0.0 Immature Granulocytes # 0.010 Neutrophils # 2.6 Lymphocytes # 1.0 Monocytes # 0.5 Eosinophils # 0.2 Basophils # 0.0 Nucleated Red Blood Cells # 0.0 Sodium Level 141 Potassium Level 4.1 Chloride Level 106 Carbon Dioxide Level 27 Anion Gap 8 Blood Urea Nitrogen 18 Creatinine 0.75 Est Glomerular Filtrat Rate mL/min > 60 Glucose Level 119 Calcium Level 9.3 Bedside Glucose 117 Medications Medication Current Medications Amlodipine Besylate (Norvasc) 10 mg DAILY PO ; Start 07/10/18 at 09:00 Aspirin (Halfprin) 81 mg DAILY PO ; Start 07/10/18 at 09:00 Atorvastatin Calcium (Lipitor) 40 mg QHS PO Last administered on 07/09/18at 20:45; Admin Dose 40 MG; Start 07/09/18 at 21:00 Cilostazol (Pletal) 100 mg BID PO Last administered on 07/09/18at 20:45; Admin Dose 100 MG; Start 07/09/18 at 21:00 Hydrochlorothiazide (Hydrochlorothiazide) 25 mg DAILY PO ; Start 07/10/18 at 09:00 Levothyroxine Sodium (Synthroid) 25 mcg BEFORE BREAKFAST PO ; Start 07/10/18 at 07:00 Losartan Potassium (Cozaar) 50 mg DAILY PO ; Start 07/10/18 at 09:00 Metoprolol Succinate (Toprol Xl) 50 mg DAILY PO ; Start 07/10/18 at 09:00 Nortriptyline HCl (Aventyl) 10 mg HS PO ; Start 07/09/18 at 21:00 Tamsulosin HCl (Flomax) 0.4 mg HS PO Last administered on 07/09/18at 20:45; Admin Dose 0.4 MG; Start 07/09/18 at 21:00 IV Flush (NS 3 ml) 3 ml PER PROTOCOL IV ; Start 07/09/18 at 15:30 Ondansetron HCl (Zofran Inj) 4 mg Q6H PRN IV NAUSEA/VOMITING; Start 07/09/18 at 15:30 Acetaminophen (Tylenol Tab) 650 mg Q6H PRN PO .PAIN 1-3 OR TEMP; Start 07/09/18 at 15:30 Acetaminophen/ Hydrocodone Bitart ([place] (5/325)) 1 tab Q6H PRN PO .PAIN 4-6; Start 07/09/18 at 15:30 Morphine Sulfate (morphine) 2 mg Q4H PRN IV .PAIN 7-10; Start 07/09/18 at 15:30 Vancomycin HCl (Vanco Iv Per Pharmacy) VANCOMYCIN PER PHARMACY PER PROTOCOL XX ; Start 07/09/18 at 15:30 Piperacillin Sod/ Tazobactam Sod 100 ml @ 200 mls/hr Q6 IVPB Last administered on 07/09/18at 20:44; Admin Dose 200 MLS/HR; Start 07/09/18 at 18:00 Sodium Chloride 1,000 ml @ 100 mls/hr Q10H IV Last administered on 07/09/18at 20:43; Admin Dose 100 MLS/HR; Start 07/09/18 at 16:00; Stop 07/10/18 at 01:59 Vancomycin HCl 2 gm/Sodium Chloride 500 ml @ 125 mls/hr ONCE IVPB ; Start 07/09/18 at 20:00; Stop 07/09/18 at 23:00 Vancomycin HCl 1.5 gm/Sodium Chloride 250 ml @ 83.333 mls/ hr Q12H IVPB ; Start 07/10/18 at 08:00 Metformin HCl (Glucophage Xr) 1,000 mg BID PO ; Start 07/09/18 at 21:00 Linagliptin (Tradjenta) 5 mg DAILY PO ; Start 07/10/18 at 09:00 Insulin Aspart (Novolog Insulin Pen) NOVOLOG *MILD* ALGORITHM WITH MEALS BEDTIME SC ; Start 07/09/18 at 21:00 Miscellaneous Information 1 ea NOTE XX ; Start 07/09/18 at 20:30 Glucose (Glutose) 15 gm Q15M PRN PO DECREASED GLUCOSE; Start 07/09/18 at 20:30 Glucose (Glutose) 22.5 gm Q15M PRN PO DECREASED GLUCOSE; Start 07/09/18 at 20:30 Dextrose (D50w Syringe) 25 ml Q15M PRN IV DECREASED GLUCOSE; Start 07/09/18 at 20:30 Dextrose (D50w Syringe) 50 ml Q15M PRN IV DECREASED GLUCOSE; Start 07/09/18 at 20:30 Glucagon (Glucagen) 1 mg Q15M PRN IM DECREASED GLUCOSE; Start 07/09/18 at 20:30 Glucose (Glutose) 15 gm Q15M PRN BUCCAL DECREASED GLUCOSE; Start 07/09/18 at 20:30 JORGE MILES MD July 09, 2018 21:23
[2018-07-09] MEDS: NORTRIPTYLINE 10 MG CAP PO SCH (23:57)
[2018-07-10 01:12] VITALS: BP 138/62; PULSE 103; RESP 17
[2018-07-10] MEDS: PIPER-TAZO 3.375 GM IV (PMX) 100 ML IVPB SCH ×4 (03:31→17:51)
[2018-07-10] MEDS: SOD CHLORIDE 0.9% 1,000 ML IV SCH (04:39)
[2018-07-10] MEDS: LEVOTHYROXINE 25 MCG TAB PO SCH (06:34)
[2018-07-10] MEDS: INSULIN ASPART [NOVOLOG] 3 ML PEN SC SCH ×4 (07:58→21:00)
[2018-07-10] MEDS ORDERED: VANCOMYCIN HCL 1.5 GM in SOD CHLORIDE 0.9% 250 ML IVPB SCH (08:00)
[2018-07-10 08:04] VITALS: BP 137/61; PULSE 110; RESP 20
[2018-07-10] MEDS: METOPROLOL (XL) 50 MG TAB PO SCH (08:29)
[2018-07-10] MEDS: HYDROCHLOROTHIAZIDE 25 MG TAB PO SCH (08:29)
[2018-07-10] MEDS: CILOSTAZOL 100 MG TAB PO SCH ×2 (08:30→21:10)
[2018-07-10] MEDS: ASPIRIN (EC) 81 MG TAB PO SCH (08:30)
[2018-07-10] MEDS: LOSARTAN 50 MG TAB PO SCH (08:30)
[2018-07-10] MEDS: AMLODIPINE 10 MG TAB PO SCH (08:30)
[2018-07-10] MEDS: LINAGLIPTIN 5 MG TABLET PO SCH (08:31)
[2018-07-10] MEDS: metFORMIN (XR) 500 MG TAB PO SCH ×2 (08:31→21:00)
--- NOTE | 2018-07-10 10:00 | PN ---
Date/Time of Note Date/Time of Note DATE: 07/10/18 TIME: 09:57 Assessment/Plan Lines/Catheters IV Catheter Type (from Nrs): Peripheral IV Frazier in Place (from Nrs): No Assessment/Plan Chief Complaint/Hosp Course 1. RUE and chest wall edema and erythema. DDx: cellulitis, vascular, infiltrating ca, other. Punch bx of skin done last week, results pending. Ultrasound right upper extremity negative for DVT, CT chest and right arm noted without abscess formation or foci of air -wound drainage cx right chest wall> sent -await bx results -iv abx per ID -nutritional optimization 2. Right chest wall wound with dc at site of bx -as above -local care 3. Morbid obesity, BMI 55. Discussed with him surgical options of weight loss but he is not excited for surgery. 4. DMII, HTN, HL -nutritional optimization -weight loss encouraged 5. Back pain -weight loss encouraged -PT 6. Hypothyroidism -hormone repletion 7. CAD hx s/p 4x CABG -cardiac optimization -weight loss encouraged Thank you. Patient seen and examined in collaboration with Dr. Jose Mackay. Subjective 24 Hr Interval Summary Tachycardia. Continues to have drainage from right breast and arm. No pain. No fevers, chills, sob, congested cough, cp, palpitations, cadet, dizziness, nausea, vomiting, diarrhea, dysuria. Exam/Review of Systems Vital Signs Vitals Vital Signs Date Temp Pulse Resp B/P (MAP) Pulse Ox O2 O2 Flow FiO2 Time Delivery Rate 07/10/18 98.5 110 20 137/61 94 08:04 (86) 07/09/18 Room Air 18:56 Intake and Output 07/09/18 07/09/18 07/10/18 1515:00 23:00 07:00 IntakeIntake Total 200 ml 600 ml OutputOutput Total 400 ml BalanceBalance 200 ml 200 ml Exam Free Text/Dictation Constitutional: alert, oriented, obese; No distress Psych: nl mood/affect; No anxiety, No confusion Head: normocephalic, atraumatic Eyes: nl conjunctiva, EOMI, PERRL; No icteric ENMT: nl external ears & nose, nl lips & teeth, mucosa pink and moist Neck: supple; No jvd Respiratory: normal air movement; No congested cough, No labored breathing, No wheezing Cardiovascular: regular rate and rhythm, edema (RUE and chest wall. BLE); drainage from right breast wound Gastrointestinal: soft, non-tender, other (Obese); No rebound or guarding Musculoskeletal: nl gait and stance; No nl extremities to inspection (RUE edema and erythema), No joint tenderness Extremities: normal pulses, edema; No calf tenderness Neurological: nl mental status, nl speech, nl strength Skin: rash or lesions (RUE and chest wall blanching erythema); No diaphoresis Lymph: nl lymph nodes, nontender Results Result Diagram: 07/10/18 0449 07/10/18 0449 KRIS WIN NP July 10, 2018 10:00
[2018-07-10] MEDS: VANCOMYCIN HCL 1.5 GM in SOD CHLORIDE 0.9% 250 ML IVPB SCH ×2 (10:29→21:10)
--- NOTE | 2018-07-10 13:37 | CONS ---
Assessment/Plan Assessment/Plan Hospital Course (Demo Recall) Patient is awake lying comfortably in bed complaining of right upper extremity pain. He is afebrile. WBC today 4.9 platelets 201 no shift no bands BUN 19 [address] revealed moderate cellulitis no suggestion for abscess or necrotizing fasciitis please see full report in the chart CT of the chest revealed no abscess Antimicrobials: Patient is on IV vancomycin and Zosyn Physical examination: This is a morbidly obese well-developed elderly man who is alert in no distress. Head atraumatic normocephalic. Neck is obese. Chest rise symmetrical breath sounds diminished bases. Patient has significant erythema over his right breast skin has orange peel look. Heart: S1-S2. Abdomen soft bowel sounds present. Extremities: Right upper extremity severe edema and erythema Assessment: 1. Right upper extremity cellulitis 2. Chest wall edema and erythema questionable abscess 3. Morbid obesity 4. Diabetes 5. Coronary artery disease status post CABG Plan: We are going to order blood cultures, continue on current antibiotics, keep right upper extremity elevated, follow surgical recommendations Consultation Date/Type/Reason Admit Date/Time July 09, 2018 at 15:07 Initial Consult Date 07/09/18 Type of Consult id Requesting Provider: REBECCA VO Date/Time of Note DATE: 07/10/18 TIME: 13:36 Exam/Review of Systems Exam Vitals Vital Signs Date Temp Pulse Resp B/P (MAP) Pulse Ox O2 O2 Flow FiO2 Time Delivery Rate 07/10/18 98.5 110 20 137/61 94 08:04 (86) 07/09/18 Room Air 18:56 Intake and Output 07/09/18 07/09/18 07/10/18 1515:00 23:00 07:00 IntakeIntake Total 200 ml 600 ml OutputOutput Total 400 ml BalanceBalance 200 ml 200 ml Results Result Diagram: 07/10/18 0449 07/10/18 0449 Results 24hrs Laboratory Tests Test 07/09/18 13:46 07/09/18 20:23 07/10/18 04:49 07/10/18 07:53 White Blood Count 4.3 L 4.9 Red Blood Count 3.93 L 3.71 L Hemoglobin 11.8 L 11.0 L Hematocrit 37.4 L 35.3 L Mean Corpuscular Volume 95.2 95.1 Mean Corpuscular 30.0 29.6 Hemoglobin Mean Corpuscular 31.6 L 31.2 L Hemoglobin Concent Red Cell Distribution 15.9 H 15.7 H Width Platelet Count 191 201 Mean Platelet Volume 9.7 10.2 Immature Granulocytes % 0.200 0.400 Neutrophils % 60.2 60.5 Lymphocytes % 23.7 22.4 Monocytes % 10.5 11.0 Eosinophils % 4.7 4.9 Basophils % 0.7 0.8 Nucleated Red Blood 0.0 0.0 Cells % Immature Granulocytes # 0.010 0.020 Neutrophils # 2.6 3.0 Lymphocytes # 1.0 1.1 Monocytes # 0.5 0.5 Eosinophils # 0.2 0.2 Basophils # 0.0 0.0 Nucleated Red Blood 0.0 0.0 Cells # Sodium Level 141 140 Potassium Level 4.1 3.9 Chloride Level 106 106 Carbon Dioxide Level 27 27 Anion Gap 8 7 Blood Urea Nitrogen 18 19 Creatinine 0.75 0.84 Est Glomerular Filtrat > 60 > 60 Rate mL/min Glucose Level 119 126 Calcium Level 9.3 8.9 Bedside Glucose 117 123 Hemoglobin A1c 6.3 H Magnesium Level 1.6 L Total Bilirubin 1.1 Direct Bilirubin 0.00 Indirect Bilirubin 1.1 Aspartate Amino 22 Transf (AST/SGOT) Alanine 21 Aminotransferase (ALT/SG PT) Alkaline Phosphatase 60 Total Protein 6.1 Albumin 3.3 Globulin 2.80 Albumin/Globulin Ratio 1.17 Triglycerides Level 51 Cholesterol Level 94 L LDL Cholesterol, 43 Calculated HDL Cholesterol 41 Cholesterol/HDL Ratio 2.2 Thyroid Stimulating 3.770 Hormone (TSH) Test 07/10/18 12:29 Bedside Glucose 157 Medications Medication Current Medications Amlodipine Besylate (Norvasc) 10 mg DAILY PO Last administered on 07/10/18 08:30; Admin Dose 10 MG; Start 07/10/18 at 09:00 Aspirin (Halfprin) 81 mg DAILY PO Last administered on 07/10/18 08:30; Admin Dose 81 MG; Start 07/10/18 at 09:00 Atorvastatin Calcium (Lipitor) 40 mg QHS PO Last administered on 07/09/18at 20:45; Admin Dose 40 MG; Start 07/09/18 at 21:00 Cilostazol (Pletal) 100 mg BID PO Last administered on 07/10/18at 08:30; Admin Do se 100 MG; Start 07/09/18 at 21:00 Hydrochlorothiazide (Hydrochlorothiazide) 25 mg DAILY PO Last administered on 07/10/18 08:29; Admin Dose 25 MG; Start 07/10/18 at 09:00 Levothyroxine Sodium (Synthroid) 25 mcg BEFORE BREAKFAST PO Last administered on 07/10/18 06:34; Admin Dose 25 MCG; Start 07/10/18 at 07:00 Losartan Potassium (Cozaar) 50 mg DAILY PO Last administered on 07/10/18 08:30; Admin Dose 50 MG; Start 07/10/18 at 09:00 Metoprolol Succinate (Toprol Xl) 50 mg DAILY PO Last administered on 07/10/18 08:29; Admin Dose 50 MG; Start 07/10/18 at 09:00 Nortriptyline HCl (Aventyl) 10 mg HS PO Last administered on 07/09/18at 23:57; Admin Dose 10 MG; Start 07/09/18 at 21:00 Tamsulosin HCl (Flomax) 0.4 mg HS PO Last administered on 07/09/18at 20:45; Admin Dose 0.4 MG; Start 07/09/18 at 21:00 IV Flush (NS 3 ml) 3 ml PER PROTOCOL IV ; Start 07/09/18 at 15:30 Ondansetron HCl (Zofran Inj) 4 mg Q6H PRN IV NAUSEA/VOMITING; Start 07/09/18 at 15:30 Acetaminophen (Tylenol Tab) 650 mg Q6H PRN PO .PAIN 1-3 OR TEMP; Start 07/09/18 at 15:30 Acetaminophen/ Hydrocodone Bitart ([place] (5/325)) 1 tab Q6H PRN PO .PAIN 4-6; Start 07/09/18 at 15:30 Morphine Sulfate (morphine) 2 mg Q4H PRN IV .PAIN 7-10; Start 07/09/18 at 15:30 Vancomycin HCl (Vanco Iv Per Pharmacy) VANCOMYCIN PER PHARMACY PER PROTOCOL XX ; Start 07/09/18 at 15:30 Piperacillin Sod/ Tazobactam Sod 100 ml @ 200 mls/hr Q6 IVPB Last administered on 07/10/18at 07:26; Admin Dose 200 MLS/HR; Start 07/09/18 at 18:00 Metformin HCl (Glucophage Xr) 1,000 mg BID PO Last administered on 07/10/18at 08:31; Admin Dose 1,000 MG; Start 07/09/18 at 21:00 Linagliptin (Tradjenta) 5 mg DAILY PO Last administered on 07/10/18at 08:31; Admin Dose 5 MG; Start 07/10/18 at 09:00 Insulin Aspart (Novolog Insulin Pen) NOVOLOG *MILD* ALGORITHM WITH MEALS BEDTIME SC Last administered on 07/10/18at 12:53; Admin Dose 1 UNIT; Start 07/09/18 at 21:00 Miscellaneous Information 1 ea NOTE XX ; Start 07/09/18 at 20:30 Glucose (Glutose) 15 gm Q15M PRN PO DECREASED GLUCOSE; Start 07/09/18 at 20:30 Glucose (Glutose) 22.5 gm Q15M PRN PO DECREASED GLUCOSE; Start 07/09/18 at 20:30 Dextrose (D50w Syringe) 25 ml Q15M PRN IV DECREASED GLUCOSE; Start 07/09/18 at 20:30 Dextrose (D50w Syringe) 50 ml Q15M PRN IV DECREASED GLUCOSE; Start 07/09/18 at 20:30 Glucagon (Glucagen) 1 mg Q15M PRN IM DECREASED GLUCOSE; Start 07/09/18 at 20:30 Glucose (Glutose) 15 gm Q15M PRN BUCCAL DECREASED GLUCOSE; Start 07/09/18 at 20:30 Vancomycin HCl 1.5 gm/Sodium Chloride 250 ml @ 83.333 mls/ hr Q12H IVPB Last administered on 07/10/18at 10:29; Admin Dose 83.333 MLS/HR; Start 07/10/18 at 10:00 GUILLERMINA JOHNSTON NP July 10, 2018 13:37
--- NOTE | 2018-07-10 15:12 | PN ---
Date/Time of Note Date/Time of Note DATE: 07/10/18 TIME: 15:07 Objective Vitals Vital Signs Date Temp Pulse Resp B/P (MAP) Pulse Ox O2 O2 Flow FiO2 Time Delivery Rate 07/10/18 98.5 110 20 137/61 94 08:04 (86) 07/09/18 Room Air 18:56 Intake and Output 07/09/18 07/09/18 07/10/18 1515:00 23:00 07:00 IntakeIntake Total 200 ml 600 ml OutputOutput Total 400 ml BalanceBalance 200 ml 200 ml Results Result Diagram: 07/10/18 0449 07/10/189 Medications Medications Current Medications Amlodipine Besylate (Norvasc) 10 mg DAILY PO Last administered on 07/10/18 08:30; Admin Dose 10 MG; Start 07/10/18 at 09:00 Aspirin (Halfprin) 81 mg DAILY PO Last administered on 07/10/18 08:30; Admin Dose 81 MG; Start 07/10/18 at 09:00 Atorvastatin Calcium (Lipitor) 40 mg QHS PO Last administered on 07/09/18 20:45; Admin Dose 40 MG; Start 07/09/18 at 21:00 Cilostazol (Pletal) 100 mg BID PO Last administered on 07/10/18 08:30; Admin Dose 100 MG; Start 07/09/18 at 21:00 Hydrochlorothiazide (Hydrochlorothiazide) 25 mg DAILY PO Last administered on 07/10/18 08:29; Admin Dose 25 MG; Start 07/10/18 at 09:00 Levothyroxine Sodium (Synthroid) 25 mcg BEFORE BREAKFAST PO Last administered on 07/10/18 06:34; Admin Dose 25 MCG; Start 07/10/18 at 07:00 Losartan Potassium (Cozaar) 50 mg DAILY PO Last administered on 07/10/18 08:30; Admin Dose 50 MG; Start 07/10/18 at 09:00 Metoprolol Succinate (Toprol Xl) 50 mg DAILY PO Last administered on 07/10/18 08:29; Admin Dose 50 MG; Start 07/10/18 at 09:00 Nortriptyline HCl (Aventyl) 10 mg HS PO Last administered on 07/09/18 23:57; Admin Dose 10 MG; Start 07/09/18 at 21:00 Tamsulosin HCl (Flomax) 0.4 mg HS PO Last administered on 07/09/18at 20:45; Admin Dose 0.4 MG; Start 07/09/18 at 21:00 IV Flush (NS 3 ml) 3 ml PER PROTOCOL IV ; Start 07/09/18 at 15:30 Ondansetron HCl (Zofran Inj) 4 mg Q6H PRN IV NAUSEA/VOMITING; Start 07/09/18 at 15:30 Acetaminophen (Tylenol Tab) 650 mg Q6H PRN PO .PAIN 1-3 OR TEMP; Start 07/09/18 at 15:30 Acetaminophen/ Hydrocodone Bitart ([place] (5/325)) 1 tab Q6H PRN PO .PAIN 4-6; Start 07/09/18 at 15:30 Morphine Sulfate (morphine) 2 mg Q4H PRN IV .PAIN 7-10; Start 07/09/18 at 15:30 Vancomycin HCl (Vanco Iv Per Pharmacy) VANCOMYCIN PER PHARMACY PER PROTOCOL XX ; Start 07/09/18 at 15:30 Piperacillin Sod/ Tazobactam Sod 100 ml @ 200 mls/hr Q6 IVPB Last administered on 07/10/18at 14:01; Admin Dose 200 MLS/HR; Start 07/09/18 at 18:00 Metformin HCl (Glucophage Xr) 1,000 mg BID PO Last administered on 07/10/18at 08:31; Admin Dose 1,000 MG; Start 07/09/18 at 21:00 Linagliptin (Tradjenta) 5 mg DAILY PO Last administered on 07/10/18at 08:31; Admin Dose 5 MG; Start 07/10/18 at 09:00 Insulin Aspart (Novolog Insulin Pen) NOVOLOG *MILD* ALGORITHM WITH MEALS BEDTIME SC Last administered on 07/10/18at 12:53; Admin Dose 1 UNIT; Start 07/09/18 at 21:00 Miscellaneous Information 1 ea NOTE XX ; Start 07/09/18 at 20:30 Glucose (Glutose) 15 gm Q15M PRN PO DECREASED GLUCOSE; Start 07/09/18 at 20:30 Glucose (Glutose) 22.5 gm Q15M PRN PO DECREASED GLUCOSE; Start 07/09/18 at 20:30 Dextrose (D50w Syringe) 25 ml Q15M PRN IV DECREASED GLUCOSE; Start 07/09/18 at 20:30 Dextrose (D50w Syringe) 50 ml Q15M PRN IV DECREASED GLUCOSE; Start 07/09/18 at 20:30 Glucagon (Glucagen) 1 mg Q15M PRN IM DECREASED GLUCOSE; Start 07/09/18 at 20:30 Glucose (Glutose) 15 gm Q15M PRN BUCCAL DECREASED GLUCOSE; Start 07/09/18 at 20:30 Vancomycin HCl 1.5 gm/Sodium Chloride 250 ml @ 83.333 mls/ hr Q12H IVPB Last administered on 07/10/18at 10:29; Admin Dose 83.333 MLS/HR; Start 07/10/18 at 10:00 VTE Prophylaxis Risk score (from Ns)>0 risk: 3 SCD applied (from Ns): Yes Lines/Catheters IV Catheter Type: Frazier in Place: No Assessment/Plan Hospital Course Subjective no acute complaints, some minor pain in chest and arm. Objective Physical exam General: Patient is laying in bed and answers questions appropriately Mentation: Patient is alert and oriented 4, Head: Normocephalic atraumatic Eyes: EOMI, pupils reactive to light Neck: Supple, nontender, midline Respiratory: Clear to auscultation bilaterally Cardiovascular: regular rate, no obvious murmurs Gastrointestinal: non-tender to palpation, bowel sounds heard. Neurological: Moves all extremities spontaneously Skin: Right breast area, erythematous, bandaged. Right upper extremity forearm erythematous, bandaged Assessment and plan Right breast cellulitis with possible abscess -Patient received mammogram outpatient, biopsy was done by general surgeon last week, patient attempted Keflex outpatient however continued to be erythematous and drained pus. -Broad-spectrum IV antibiotic -Infectious disease consulted -CT scan with contrast done, no abscess -Patient's general surgeon has been consulted, Dr. Mackay Right forearm cellulitis -Subacute at this time, been going on for approximately 6 weeks -CT arm showing cellulitis, no abscess -Duplex venous negative for DVT Coronary artery disease with history of CABG in 1999 -Continue home medications Diabetes mellitus -Patient's advertising designer will be consulted, meds adjusted Hypothyroidism -Continue home meds Mood disorder -Continue home meds Dyslipidemia -Continue home meds Hypertension -Continue home meds Disposition -cont abx, f/u with culture/biopsy results REBECCA VO July 10, 2018 15:12
[2018-07-10 15:13] VITALS: BP 119/59; PULSE 101; RESP 20
--- NOTE | 2018-07-10 17:55 | CONS ---
Assessment/Plan Assessment/Plan Problems: (1) Type 2 diabetes mellitus without complications Status: Chronic Comment: Good glycemic control. Cont. metformin and tradjenta. (2) Hypothyroidism Status: Chronic Comment: TSH in goal. Cont. LT4 25 mcg/d Consultation Date/Type/Reason Admit Date/Time July 09, 2018 at 15:07 Initial Consult Date 07/09/18 Type of Consult Endocrinology Reason for Consultation T2DM management Requesting Provider: REBECCA VO Date/Time of Note DATE: 07/10/18 TIME: 17:52 24 HR Interval Summary Constitutional: no complaints, improved Detailed Summary Respiratory: no complaints Cardiovascular: no complaints Gastrointestinal: no complaints Genitourinary: no complaints Musculoskeletal: swelling (mild reduction in swelling of RUE) Skin: erythema Neurologic: no complaints Exam/Review of Systems Exam Vitals VS - Last 72 Hours, by Label Date Temp Pulse Resp B/P (MAP) Pulse Ox O2 O2 Flow FiO2 Time Delivery Rate 07/10/18 98.3 101 20 119/59 95 15:13 (79) 07/10/18 98.5 110 20 137/61 94 08:04 (86) 07/10/18 98.6 103 17 138/62 93 01:12 (87) 07/09/18 98.1 103 18 125/59 100 19:30 (81) 07/09/18 98.2 18 138/63 97 Room Air 18:56 (88) 07/09/18 100 18 139/69 100 Room Air 18:09 (92) 07/09/18 89 17 142/68 100 Room Air 14:21 (92) 07/09/18 97.4 101 18 143/66 98 10:35 (91) Vital Signs Date Temp Pulse Resp B/P (MAP) Pulse Ox O2 O2 Flow FiO2 Time Delivery Rate 07/10/18 98.3 101 20 119/59 95 15:13 (79) 07/09/18 Room Air 18:56 Intake and Output 07/09/18 07/09/18 07/10/18 1515:00 23:00 07:00 IntakeIntake Total 200 ml 600 ml OutputOutput Total 400 ml BalanceBalance 200 ml 200 ml Constitutional: alert, oriented, obese Psych: no complaints, nl mood/affect Respiratory: clear to auscultation, normal air movement Cardiovascular: regular rate and rhythm, nl pulses; No edema, No murmurs/extra sounds, No rub Gastrointestinal: soft, nl liver, spleen, non-tender, bowel sounds; No mass, No rebound or guarding Musculoskeletal: nl extremities to inspection Extremities: normal pulses, edema (RUE w/ 3+ edema); No cyanosis, No clubbing 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 Still w/ edema to touch) Additional Comments Bedside Glucose - 72 Hours Test 07/09/18 20:23 07/10/18 07:53 07/10/18 12:29 07/10/18 17:27 Bedside 117 123 157 101 Glucose mg/dL (70-220) mg/dL (70-220) mg/dL (70-220) mg/dL (70-220) Results Result Diagram: 07/10/18 0449 07/10/18 0449 Results 24hrs Laboratory Tests Test 07/09/18 20:23 07/10/18 04:49 07/10/18 07:53 07/10/18 12:29 Bedside Glucose 117 123 157 White Blood Count 4.9 Red Blood Count 3.71 L Hemoglobin 11.0 L Hematocrit 35.3 L Mean Corpuscular Volume 95.1 Mean Corpuscular 29.6 Hemoglobin Mean Corpuscular 31.2 L Hemoglobin Concent Red Cell Distribution 15.7 H Width Platelet Count 201 Mean Platelet Volume 10.2 Immature Granulocytes % 0.400 Neutrophils % 60.5 Lymphocytes % 22.4 Monocytes % 11.0 Eosinophils % 4.9 Basophils % 0.8 Nucleated Red Blood 0.0 Cells % Immature Granulocytes # 0.020 Neutrophils # 3.0 Lymphocytes # 1.1 Monocytes # 0.5 Eosinophils # 0.2 Basophils # 0.0 Nucleated Red Blood 0.0 Cells # Sodium Level 140 Potassium Level 3.9 Chloride Level 106 Carbon Dioxide Level 27 Anion Gap 7 Blood Urea Nitrogen 19 Creatinine 0.84 Est Glomerular Filtrat > 60 Rate mL/min Glucose Level 126 Hemoglobin A1c 6.3 H Calcium Level 8.9 Magnesium Level 1.6 L Total Bilirubin 1.1 Direct Bilirubin 0.00 Indirect Bilirubin 1.1 Aspartate Amino 22 Transf (AST/SGOT) Alanine 21 Aminotransferase (ALT/SG PT) Alkaline Phosphatase 60 Total Protein 6.1 Albumin 3.3 Globulin 2.80 Albumin/Globulin Ratio 1.17 Triglycerides Level 51 Cholesterol Level 94 L LDL Cholesterol, 43 Calculated HDL Cholesterol 41 Cholesterol/HDL Ratio 2.2 Thyroid Stimulating 3.770 Hormone (TSH) Test 07/10/18 17:27 Bedside Glucose 101 Medications Medication Current Medications Amlodipine Besylate (Norvasc) 10 mg DAILY PO Last administered on 07/10/18 08:30; Admin Dose 10 MG; Start 07/10/18 at 09:00 Aspirin (Halfprin) 81 mg DAILY PO Last administered on 07/10/18 08:30; Admin Dose 81 MG; Start 07/10/18 at 09:00 Atorvastatin Calcium (Lipitor) 40 mg QHS PO Last administered on 07/09/18 20:45; Admin Dose 40 MG; Start 07/09/18 at 21:00 Cilostazol (Pletal) 100 mg BID PO Last administered on 07/10/18 08:30; Admin Dose 100 MG; Start 07/09/18 at 21:00 Hydrochlorothiazide (Hydrochlorothiazide) 25 mg DAILY PO Last administered on 07/10/18 08:29; Admin Dose 25 MG; Start 07/10/18 at 09:00 Levothyroxine Sodium (Synthroid) 25 mcg BEFORE BREAKFAST PO Last administered on 07/10/18 06:34; Admin Dose 25 MCG; Start 07/10/18 at 07:00 Losartan Potassium (Cozaar) 50 mg DAILY PO Last administered on 07/10/18 08:30; Admin Dose 50 MG; Start 07/10/18 at 09:00 Metoprolol Succinate (Toprol Xl) 50 mg DAILY PO Last administered on 07/10/18 08:29; Admin Dose 50 MG; Start 07/10/18 at 09:00 Nortriptyline HCl (Aventyl) 10 mg HS PO Last administered on 07/09/18 23:57; Admin Dose 10 MG; Start 07/09/18 at 21:00 Tamsulosin HCl (Flomax) 0.4 mg HS PO Last administered on 07/09/18 20:45; Admin Dose 0.4 MG; Start 07/09/18 at 21:00 IV Flush (NS 3 ml) 3 ml PER PROTOCOL IV ; Start 07/09/18 at 15:30 Ondansetron HCl (Zofran Inj) 4 mg Q6H PRN IV NAUSEA/VOMITING; Start 07/09/18 at 15:30 Acetaminophen (Tylenol Tab) 650 mg Q6H PRN PO .PAIN 1-3 OR TEMP; Start 07/09/18 at 15:30 Acetaminophen/ Hydrocodone Bitart ([place] (5/325)) 1 tab Q6H PRN PO .PAIN 4-6; Start 07/09/18 at 15:30 Morphine Sulfate (morphine) 2 mg Q4H PRN IV .PAIN 7-10; Start 07/09/18 at 15:30 Vancomycin HCl (Vanco Iv Per Pharmacy) VANCOMYCIN PER PHARMACY PER PROTOCOL XX ; Start 07/09/18 at 15:30 Piperacillin Sod/ Tazobactam Sod 100 ml @ 200 mls/hr Q6 IVPB Last administered on 07/10/18at 14:01; Admin Dose 200 MLS/HR; Start 07/09/18 at 18:00 Metformin HCl (Glucophage Xr) 1,000 mg BID PO Last administered on 07/10/18at 08:31; Admin Dose 1,000 MG; Start 07/09/18 at 21:00 Linagliptin (Tradjenta) 5 mg DAILY PO Last administered on 07/10/18at 08:31; Admin Dose 5 MG; Start 07/10/18 at 09:00 Insulin Aspart (Novolog Insulin Pen) NOVOLOG *MILD* ALGORITHM WITH MEALS BEDTIME SC Last administered on 07/10/18at 12:53; Admin Dose 1 UNIT; Start 07/09/18 at 21:00 Miscellaneous Information 1 ea NOTE XX ; Start 07/09/18 at 20:30 Glucose (Glutose) 15 gm Q15M PRN PO DECREASED GLUCOSE; Start 07/09/18 at 20:30 Glucose (Glutose) 22.5 gm Q15M PRN PO DECREASED GLUCOSE; Start 07/09/18 at 20:30 Dextrose (D50w Syringe) 25 ml Q15M PRN IV DECREASED GLUCOSE; Start 07/09/18 at 20:30 Dextrose (D50w Syringe) 50 ml Q15M PRN IV DECREASED GLUCOSE; Start 07/09/18 at 20:30 Glucagon (Glucagen) 1 mg Q15M PRN IM DECREASED GLUCOSE; Start 07/09/18 at 20:30 Glucose (Glutose) 15 gm Q15M PRN BUCCAL DECREASED GLUCOSE; Start 07/09/18 at 20:30 Vancomycin HCl 1.5 gm/Sodium Chloride 250 ml @ 83.333 mls/ hr Q12H IVPB Last administered on 07/10/18at 10:29; Admin Dose 83.333 MLS/HR; Start 07/10/18 at 10:00 Miscellaneous Information (*Rx Drug Level Order Reminder*) 1 0900 ONCE XX ; Start 07/11/18 at 09:00; Stop 07/11/18 at 09:01 EDVIN MORGAN MD July 10, 2018 17:55
[2018-07-10 19:16] VITALS: BP 127/57; PULSE 99; RESP 18
[2018-07-10] MEDS: NORTRIPTYLINE 10 MG CAP PO SCH (21:10)
[2018-07-10] MEDS: ATORVASTATIN 40 MG TAB PO SCH (21:10)
[2018-07-10] MEDS: TAMSULOSIN (SR) 0.4 MG CAP PO SCH (21:10)
[2018-07-11] MEDS: PIPER-TAZO 3.375 GM IV (PMX) 100 ML IVPB SCH ×4 (00:47→18:10)
[2018-07-11 03:20] VITALS: BP 136/63; PULSE 102; RESP 18
[2018-07-11] MEDS: LEVOTHYROXINE 25 MCG TAB PO SCH (06:29)
[2018-07-11 07:39] VITALS: BP 139/59; PULSE 109; RESP 20
[2018-07-11] MEDS: INSULIN ASPART [NOVOLOG] 3 ML PEN SC SCH ×4 (08:00→21:00)
[2018-07-11] MEDS: metFORMIN (XR) 500 MG TAB PO SCH ×2 (08:44→21:00)
[2018-07-11] MEDS: CILOSTAZOL 100 MG TAB PO SCH ×2 (08:47→20:59)
[2018-07-11] MEDS: LOSARTAN 50 MG TAB PO SCH (08:47)
[2018-07-11] MEDS: ASPIRIN (EC) 81 MG TAB PO SCH (08:48)
[2018-07-11] MEDS: HYDROCHLOROTHIAZIDE 25 MG TAB PO SCH (08:48)
[2018-07-11] MEDS: METOPROLOL (XL) 50 MG TAB PO SCH (08:49)
[2018-07-11] MEDS: AMLODIPINE 10 MG TAB PO SCH (08:49)
[2018-07-11] MEDS: LINAGLIPTIN 5 MG TABLET PO SCH ×2 (08:50→13:29)
[2018-07-11] MEDS: VANCOMYCIN HCL 1.5 GM in SOD CHLORIDE 0.9% 250 ML IVPB SCH ×2 (10:00→21:40)
--- NOTE | 2018-07-11 11:30 | PN ---
Date/Time of Note Date/Time of Note DATE: 07/11/18 TIME: 11:29 Assessment/Plan Lines/Catheters IV Catheter Type (from Nrs): Saline Lock Frazier in Place (from Nrs): No Assessment/Plan Chief Complaint/Hosp Course 1. RUE and chest wall edema and erythema. DDx: cellulitis, vascular, infiltrating ca, other. Punch bx of skin done last week, results pending. Ultrasound right upper extremity negative for DVT, CT chest and right arm noted without abscess formation or foci of air Right breast biopsy 07/04/2018: Skin with reactive stromal fibroblasts,telan giectasia, dermal fibrosis and mild perivascular chronic inflammation. No malignancy -wound drainage cx right chest wall> pending results -iv abx per ID -nutritional optimization 2. Right chest wall wound with dc at site of bx -as above -local care 3. Morbid obesity, BMI 55. Discussed with him surgical options of weight loss but he is not excited for surgery. 4. DMII, HTN, HL -nutritional optimization -weight loss encouraged 5. Back pain -weight loss encouraged -PT 6. Hypothyroidism -hormone repletion 7. CAD hx s/p 4x CABG -cardiac optimization -weight loss encouraged 8. Tachycardia: -monitor -w/u tx per medical team if persistent Thank you. Patient seen and examined in collaboration with Dr. Jose Mackay. Subjective 24 Hr Interval Summary Tachycardia. No fevers, chills, sob, congested cough, cp, palpitations, cadte, dizziness, n/v/d/dysuria. Wound/blood cx pending Exam/Review of Systems Vital Signs Vitals Vital Signs Date Temp Pulse Resp B/P (MAP) Pulse Ox O2 O2 Flow FiO2 Time Delivery Rate 07/11/18 98.1 109 20 139/59 97 Nasal 07:39 (85) Cannula 07/11/18 2.0 06:07 Intake and Output 07/10/18 07/10/18 07/11/18 1515:00 23:00 07:00 IntakeIntake Total 1460 ml 590 ml 350 ml BalanceBalance 1460 ml 590 ml 350 ml Exam Free Text/Dictation Constitutional: alert, oriented, obese; No distress Psych: nl mood/affect; No anxiety, No confusion Head: normocephalic, atraumatic Eyes: nl conjunctiva, EOMI, PERRL; No icteric ENMT: nl external ears & nose, nl lips & teeth, mucosa pink and moist Neck: supple; No jvd Respiratory: normal air movement; No congested cough, No labored breathing, No wheezing Cardiovascular: regular rate and rhythm, edema (RUE and chest wall. BLE); drainage from right breast wound Gastrointestinal: soft, non-tender, other (Obese); No rebound or guarding Musculoskeletal: nl gait and stance; No nl extremities to inspection (RUE edema and erythema), No joint tenderness Extremities: normal pulses, edema; No calf tenderness Neurological: nl mental status, nl speech, nl strength Skin: rash or lesions (RUE and chest wall blanching erythema); No diaphoresis Lymph: nl lymph nodes, nontender Results Result Diagram: 07/11/18 0424 07/11/18 0424 KRIS WIN NP July 11, 2018 11:30
[2018-07-11] MEDS ORDERED: MAGNESIUM OXIDE 400 MG TAB PO ONE (12:00)
--- NOTE | 2018-07-11 13:29 | CONS ---
Assessment/Plan Assessment/Plan Problems: (1) Type 2 diabetes mellitus without complications Status: Chronic Comment: Pt. has been refusing metformin due to contrast study 2 days ago. However, should be getting his tradjenta. Will instruct pt. and RN. To resume metformin tonight. BG has been in good control despite this. Qualifiers: Diabetes mellitus assisted insulin use: without ferry terminal agent use Qualified Codes: E11.9 - Type 2 diabetes mellitus without complications (2) Hypothyroidism Status: Chronic Comment: Cont. LT4 daily Consultation Date/Type/Reason Admit Date/Time July 09, 2018 at 15:07 Initial Consult Date 07/09/18 Type of Consult Endocrinology Reason for Consultation T2DM management Requesting Provider: REBECCA VO Date/Time of Note DATE: 07/11/18 TIME: 13:26 24 HR Interval Summary Constitutional: no complaints, improved Detailed Summary Respiratory: no complaints Cardiovascular: no complaints Gastrointestinal: no complaints Genitourinary: no complaints Musculoskeletal: swelling (RUE but mildly improved) Skin: erythema (R chest but improving as well) Neurologic: no complaints Exam/Review of Systems Exam Vitals VS - Last 72 Hours, by Label Date Temp Pulse Resp B/P (MAP) Pulse Ox O2 O2 Flow FiO2 Time Delivery Rate 07/11/18 98.1 109 20 139/59 97 Nasal 07:39 (85) Cannula 07/11/18 2.0 06:07 07/11/18 98.0 102 18 136/63 97 03:20 (87) 07/10/18 96 2.0 23:17 07/10/18 98.8 99 18 127/57 94 19:16 (80) 07/10/18 98.3 101 20 119/59 95 15:13 (79) 07/10/18 98.5 110 20 137/61 94 08:04 (86) 07/10/18 98.6 103 17 138/62 93 01:12 (87) 07/09/18 98.1 103 18 125/59 100 19:30 (81) 07/09/18 98.2 18 138/63 97 Room Air 18:56 (88) 07/09/18 100 18 139/69 100 Room Air 18:09 (92) 07/09/18 89 17 142/68 100 Room Air 14:21 (92) 07/09/18 97.4 101 18 143/66 98 10:35 (91) Vital Signs Date Temp Pulse Resp B/P (MAP) Pulse Ox O2 O2 Flow FiO2 Time Delivery Rate 07/11/18 98.1 109 20 139/59 97 Nasal 07:39 (85) Cannula 07/11/18 2.0 06:07 Intake and Output 07/10/18 07/10/18 07/11/18 1515:00 23:00 07:00 IntakeIntake Total 1460 ml 590 ml 350 ml BalanceBalance 1460 ml 590 ml 350 ml Constitutional: alert, oriented, obese Psych: no complaints, nl mood/affect Respiratory: clear to auscultation, normal air movement Cardiovascular: regular rate and rhythm, nl pulses; No edema, No murmurs/extra sounds, No rub Gastrointestinal: soft, nl liver, spleen, non-tender, bowel sounds; No mass, No rebound or guarding Musculoskeletal: swelling (RUE w/ 3+ edema); No nl extremities to inspection Extremities: edema (3+ RUE); No cyanosis, No clubbing Neurological: [employer]CONDITIONING ENG[employer] II-XII intact, nl mental status, nl speech, nl strength Skin: rash or lesions (erythema R breast improving daily) Additional Comments Bedside Glucose - 72 Hours Test 07/09/18 20:23 07/10/18 07:53 07/10/18 12:29 07/10/18 17:27 Bedside 117 123 157 101 Glucose mg/dL (70-220) mg/dL (70-220) mg/dL (70-220) mg/dL (70-220) Test 07/10/18 21:12 07/11/18 08:00 07/11/18 12:55 Bedside 105 120 111 Glucose mg/dL (70-220) mg/dL (70-220) mg/dL (70-220) Results Result Diagram: 07/11/18 0424 07/11/18 0424 Results 24hrs Laboratory Tests Test 07/10/18 17:27 07/10/18 21:12 07/11/18 04:24 07/11/18 08:00 Bedside Glucose 101 105 120 White Blood Count 4.6 L Red Blood Count 3.74 L Hemoglobin 11.1 L Hematocrit 35.2 L Mean Corpuscular Volume 94.1 Mean Corpuscular 29.7 Hemoglobin Mean Corpuscular 31.5 L Hemoglobin Concent Red Cell Distribution 15.9 H Width Platelet Count 195 Mean Platelet Volume 9.8 Immature Granulocytes % 0.200 Neutrophils % 58.0 Lymphocytes % 23.5 Monocytes % 11.6 H Eosinophils % 5.8 Basophils % 0.9 Nucleated Red Blood 0.0 Cells % Immature Granulocytes # 0.010 Neutrophils # 2.7 Lymphocytes # 1.1 Monocytes # 0.5 Eosinophils # 0.3 Basophils # 0.0 Nucleated Red Blood 0.0 Cells # Sodium Level 140 Potassium Level 3.9 Chloride Level 107 Carbon Dioxide Level 26 Anion Gap 7 Blood Urea Nitrogen 22 H Creatinine 1.02 Est Glomerular Filtrat > 60 Rate mL/min Glucose Level 127 Calcium Level 8.7 Phosphorus Level 4.3 Magnesium Level 1.6 L Test 07/11/18 08:54 07/11/18 12:55 Vancomycin Level Trough 22.1 *H Bedside Glucose 111 Medications Medication Current Medications Amlodipine Besylate (Norvasc) 10 mg DAILY PO Last administered on 07/11/18 08:49; Admin Dose 10 MG; Start 07/10/18 at 09:00 Aspirin (Halfprin) 81 mg DAILY PO Last administered on 07/11/18 08:48; Admin Dose 81 MG; Start 07/10/18 at 09:00 Atorvastatin Calcium (Lipitor) 40 mg QHS PO Last administered on 07/10/18 21:10; Admin Dose 40 MG; Start 07/09/18 at 21:00 Cilostazol (Pletal) 100 mg BID PO Last administered on 07/11/18 08:47; Admin Dose 100 MG; Start 07/09/18 at 21:00 Hydrochlorothiazide (Hydrochlorothiazide) 25 mg DAILY PO Last administered on 07/11/18 08:48; Admin Dose 25 MG; Start 07/10/18 at 09:00 Levothyroxine Sodium (Synthroid) 25 mcg BEFORE BREAKFAST PO Last administered on 07/11/18 06:29; Admin Dose 25 MCG; Start 07/10/18 at 07:00 Losartan Potassium (Cozaar) 50 mg DAILY PO Last administered on 07/11/18 08:47; Admin Dose 50 MG; Start 07/10/18 at 09:00 Metoprolol Succinate (Toprol Xl) 50 mg DAILY PO Last administered on 07/11/18 08:49; Admin Dose 50 MG; Start 07/10/18 at 09:00 Nortriptyline HCl (Aventyl) 10 mg HS PO Last administered on 07/10/18 21:10; Admin Dose 10 MG; Start 07/09/18 at 21:00 Tamsulosin HCl (Flomax) 0.4 mg HS PO Last administered on 07/10/18 21:10; Admin Dose 0.4 MG; Start 07/09/18 at 21:00 IV Flush (NS 3 ml) 3 ml PER PROTOCOL IV ; Start 07/09/18 at 15:30 Ondansetron HCl (Zofran Inj) 4 mg Q6H PRN IV NAUSEA/VOMITING; Start 07/09/18 at 15:30 Acetaminophen (Tylenol Tab) 650 mg Q6H PRN PO .PAIN 1-3 OR TEMP; Start 07/09/18 at 15:30 Acetaminophen/ Hydrocodone Bitart ([place] (5/325)) 1 tab Q6H PRN PO .PAIN 4-6; Start 07/09/18 at 15:30 Morphine Sulfate (morphine) 2 mg Q4H PRN IV .PAIN 7-10; Start 07/09/18 at 15:30 Vancomycin HCl (Vanco Iv Per Pharmacy) VANCOMYCIN PER PHARMACY PER PROTOCOL XX ; Start 07/09/18 at 15:30 Piperacillin Sod/ Tazobactam Sod 100 ml @ 200 mls/hr Q6 IVPB Last administered on 07/11/18at 12:38; Admin Dose 200 MLS/HR; Start 07/09/18 at 18:00 Metformin HCl (Glucophage Xr) 1,000 mg BID PO Last administered on 07/10/18 08:31; Admin Dose 1,000 MG; Start 07/09/18 at 21:00 Linagliptin (Tradjenta) 5 mg DAILY PO Last administered on 07/10/18 08:31; Admin Dose 5 MG; Start 07/10/18 at 09:00 Insulin Aspart (Novolog Insulin Pen) NOVOLOG *MILD* ALGORITHM WITH MEALS BEDTIME SC Last administered on 07/10/18 12:53; Admin Dose 1 UNIT; Start 07/09/18 at 21:00 Miscellaneous Information 1 ea NOTE XX ; Start 07/09/18 at 20:30 Glucose (Glutose) 15 gm Q15M PRN PO DECREASED GLUCOSE; Start 07/09/18 at 20:30 Glucose (Glutose) 22.5 gm Q15M PRN PO DECREASED GLUCOSE; Start 07/09/18 at 20:30 Dextrose (D50w Syringe) 25 ml Q15M PRN IV DECREASED GLUCOSE; Start 07/09/18 at 20:30 Dextrose (D50w Syringe) 50 ml Q15M PRN IV DECREASED GLUCOSE; Start 07/09/18 at 20:30 Glucagon (Glucagen) 1 mg Q15M PRN IM DECREASED GLUCOSE; Start 07/09/18 at 20:30 Glucose (Glutose) 15 gm Q15M PRN BUCCAL DECREASED GLUCOSE; Start 07/09/18 at 20:30 Vancomycin HCl 1.5 gm/Sodium Chloride 250 ml @ 83.333 mls/ hr Q12H IVPB Last administered on 07/10/18at 21:10; Admin Dose 83.333 MLS/HR; Start 07/10/18 at 10:00 EDVIN MORGAN MD July 11, 2018 13:29
--- NOTE | 2018-07-11 14:04 | PN ---
Date/Time of Note Date/Time of Note DATE: 07/11/18 TIME: 14:02 Objective Vitals Vital Signs Date Temp Pulse Resp B/P (MAP) Pulse Ox O2 O2 Flow FiO2 Time Delivery Rate 07/11/18 98.1 109 20 139/59 97 Nasal 07:39 (85) Cannula 07/11/18 2.0 06:07 Intake and Output 07/10/18 07/10/18 07/11/18 1515:00 23:00 07:00 IntakeIntake Total 1460 ml 590 ml 350 ml BalanceBalance 1460 ml 590 ml 350 ml Results Result Diagram: 07/11/18 0424 07/11/18 0424 Medications Medications Current Medications Amlodipine Besylate (Norvasc) 10 mg DAILY PO Last administered on 07/11/18 08:49; Admin Dose 10 MG; Start 07/10/18 at 09:00 Aspirin (Halfprin) 81 mg DAILY PO Last administered on 07/11/18 08:48; Admin Dose 81 MG; Start 07/10/18 at 09:00 Atorvastatin Calcium (Lipitor) 40 mg QHS PO Last administered on 07/10/18 21:10; Admin Dose 40 MG; Start 07/09/18 at 21:00 Cilostazol (Pletal) 100 mg BID PO Last administered on 07/11/18 08:47; Admin Dose 100 MG; Start 07/09/18 at 21:00 Hydrochlorothiazide (Hydrochlorothiazide) 25 mg DAILY PO Last administered on 07/11/18 08:48; Admin Dose 25 MG; Start 07/10/18 at 09:00 Levothyroxine Sodium (Synthroid) 25 mcg BEFORE BREAKFAST PO Last administered on 07/11/18 06:29; Admin Dose 25 MCG; Start 07/10/18 at 07:00 Losartan Potassium (Cozaar) 50 mg DAILY PO Last administered on 07/11/18 08:47; Admin Dose 50 MG; Start 07/10/18 at 09:00 Metoprolol Succinate (Toprol Xl) 50 mg DAILY PO Last administered on 07/11/18 08:49; Admin Dose 50 MG; Start 07/10/18 at 09:00 Nortriptyline HCl (Aventyl) 10 mg HS PO Last administered on 07/10/18 21:10; Admin Dose 10 MG; Start 07/09/18 at 21:00 Tamsulosin HCl (Flomax) 0.4 mg HS PO Last administered on 07/10/18at 21:10; Admin Dose 0.4 MG; Start 07/09/18 at 21:00 IV Flush (NS 3 ml) 3 ml PER PROTOCOL IV ; Start 07/09/18 at 15:30 Ondansetron HCl (Zofran Inj) 4 mg Q6H PRN IV NAUSEA/VOMITING; Start 07/09/18 at 15:30 Acetaminophen (Tylenol Tab) 650 mg Q6H PRN PO .PAIN 1-3 OR TEMP; Start 07/09/18 at 15:30 Acetaminophen/ Hydrocodone Bitart ([place] (5/325)) 1 tab Q6H PRN PO .PAIN 4-6; Start 07/09/18 at 15:30 Morphine Sulfate (morphine) 2 mg Q4H PRN IV .PAIN 7-10; Start 07/09/18 at 15:30 Vancomycin HCl (Vanco Iv Per Pharmacy) VANCOMYCIN PER PHARMACY PER PROTOCOL XX ; Start 07/09/18 at 15:30 Piperacillin Sod/ Tazobactam Sod 100 ml @ 200 mls/hr Q6 IVPB Last administered on 07/11/18at 12:38; Admin Dose 200 MLS/HR; Start 07/09/18 at 18:00 Metformin HCl (Glucophage Xr) 1,000 mg BID PO Last administered on 07/10/18at 08:31; Admin Dose 1,000 MG; Start 07/09/18 at 21:00 Linagliptin (Tradjenta) 5 mg DAILY PO Last administered on 07/11/18at 13:29; Admin Dose 5 MG; Start 07/10/18 at 09:00 Insulin Aspart (Novolog Insulin Pen) NOVOLOG *MILD* ALGORITHM WITH MEALS BEDTIME SC Last administered on 07/10/18at 12:53; Admin Dose 1 UNIT; Start 07/09/18 at 21:00 Miscellaneous Information 1 ea NOTE XX ; Start 07/09/18 at 20:30 Glucose (Glutose) 15 gm Q15M PRN PO DECREASED GLUCOSE; Start 07/09/18 at 20:30 Glucose (Glutose) 22.5 gm Q15M PRN PO DECREASED GLUCOSE; Start 07/09/18 at 20:30 Dextrose (D50w Syringe) 25 ml Q15M PRN IV DECREASED GLUCOSE; Start 07/09/18 at 20:30 Dextrose (D50w Syringe) 50 ml Q15M PRN IV DECREASED GLUCOSE; Start 07/09/18 at 20:30 Glucagon (Glucagen) 1 mg Q15M PRN IM DECREASED GLUCOSE; Start 07/09/18 at 20:30 Glucose (Glutose) 15 gm Q15M PRN BUCCAL DECREASED GLUCOSE; Start 07/09/18 at 20:30 Vancomycin HCl 1.5 gm/Sodium Chloride 250 ml @ 83.333 mls/ hr Q12H IVPB Last administered on 07/10/18at 21:10; Admin Dose 83.333 MLS/HR; Start 07/10/18 at 10:00 VTE Prophylaxis Risk score (from [facility] [place])>0 risk: 3 SCD applied (from [facility]): No SCD contraindication: other Lines/Catheters IV Catheter Type: Fraz[place] in Place: No Assessment/Plan Hospital Course Subjective no acute complaints, some minor pain in chest and arm. Objective Physical exam General: Patient is laying in bed and answers questions appropriately Mentation: Patient is alert and oriented 4, Head: Normocephalic atraumatic Eyes: EOMI, pupils reactive to light Neck: Supple, nontender, midline Respiratory: Clear to auscultation bilaterally Cardiovascular: regular rate, no obvious murmurs Gastrointestinal: non-tender to palpation, bowel sounds heard. Neurological: Moves all extremities spontaneously Skin: Right breast area, erythematous, bandaged. Right upper extremity forearm erythematous, bandaged Assessment and plan Right breast cellulitis -Patient received mammogram outpatient, biopsy was done by general surgeon last week, patient attempted Keflex outpatient however continued to be erythematous and drained pus. -Broad-spectrum IV antibiotic -Infectious disease consulted -CT scan with contrast done, no abscess -Patient's general surgeon has been consulted, Dr. Mackay Right forearm cellulitis -Subacute at this time, been going on for approximately 6 weeks -CT arm showing cellulitis, no abscess -Duplex venous negative for DVT Coronary artery disease with history of CABG in 1999 -Continue home medications Diabetes mellitus -Patient's senior support analyst will be consulted, meds adjusted Hypothyroidism -Continue home meds Mood disorder -Continue home meds Dyslipidemia -Continue home meds Hypertension -Continue home meds Disposition -cont abx, f/u with culture/biopsy results REBECCA VO July 11, 2018 14:04
[2018-07-11 14:29] VITALS: BP 140/63; PULSE 107; RESP 18
--- NOTE | 2018-07-11 14:48 | CONS ---
Assessment/Plan Assessment/Plan Hospital Course (Demo Recall) Patient is awake lying comfortably in bed Upper extremity CT revealed moderate cellulitis no suggestion for abscess or necrotizing fasciitis please see full report in the chart CT of the chest revealed no abscess Antimicrobials: Patient is on IV vancomycin and Zosyn Physical examination: This is a morbidly obese well-developed elderly man who is alert in no distress. Head atraumatic normocephalic. Neck is obese. Chest rise symmetrical breath sounds diminished bases. Patient has significant erythema over his right breast skin has orange peel look. Heart: S1-S2. Abdomen soft bowel sounds present. Extremities: Right upper extremity severe edema and erythema Assessment: 1. Right upper extremity cellulitis 2. Chest wall cellulitis questionable abscess 3. Morbid obesity 4. Diabetes 5. Coronary artery disease status post CABG Plan: Stable, continue present care, anticipate to keep him on IV abx for at least 7 days, keep right upper extremity elevated, follow surgical recommendations Consultation Date/Type/Reason Admit Date/Time July 09, 2018 at 15:07 Initial Consult Date 07/09/18 Type of Consult id Requesting Provider: REBECCA VO Date/Time of Note DATE: 07/11/18 TIME: 14:47 Exam/Review of Systems Exam Vitals Vital Signs Date Temp Pulse Resp B/P (MAP) Pulse Ox O2 O2 Flow FiO2 Time Delivery Rate 07/11/18 98.5 107 18 140/63 95 Room Air 14:29 (88) 07/11/18 2.0 06:07 Intake and Output 07/10/18 07/10/18 07/11/18 1515:00 23:00 07:00 IntakeIntake Total 1460 ml 590 ml 450 ml BalanceBalance 1460 ml 590 ml 450 ml Results Result Diagram: 07/11/18 0424 07/11/18 0424 Results 24hrs Laboratory Tests Test 07/10/18 17:27 07/10/18 21:12 07/11/18 04:24 07/11/18 08:00 Bedside Glucose 101 105 120 White Blood Count 4.6 L Red Blood Count 3.74 L Hemoglobin 11.1 L Hematocrit 35.2 L Mean Corpuscular Volume 94.1 Mean Corpuscular 29.7 Hemoglobin Mean Corpuscular 31.5 L Hemoglobin Concent Red Cell Distribution 15.9 H Width Platelet Count 195 Mean Platelet Volume 9.8 Immature Granulocytes % 0.200 Neutrophils % 58.0 Lymphocytes % 23.5 Monocytes % 11.6 H Eosinophils % 5.8 Basophils % 0.9 Nucleated Red Blood 0.0 Cells % Immature Granulocytes # 0.010 Neutrophils # 2.7 Lymphocytes # 1.1 Monocytes # 0.5 Eosinophils # 0.3 Basophils # 0.0 Nucleated Red Blood 0.0 Cells # Sodium Level 140 Potassium Level 3.9 Chloride Level 107 Carbon Dioxide Level 26 Anion Gap 7 Blood Urea Nitrogen 22 H Creatinine 1.02 Est Glomerular Filtrat > 60 Rate mL/min Glucose Level 127 Calcium Level 8.7 Phosphorus Level 4.3 Magnesium Level 1.6 L Test 07/11/18 08:54 07/11/18 12:55 Vancomycin Level Trough 22.1 *H Bedside Glucose 111 Medications Medication Current Medications Amlodipine Besylate (Norvasc) 10 mg DAILY PO Last administered on 07/11/18 08:49; Admin Dose 10 MG; Start 07/10/18 at 09:00 Aspirin (Halfprin) 81 mg DAILY PO Last administered on 07/11/18 08:48; Admin Dose 81 MG; Start 07/10/18 at 09:00 Atorvastatin Calcium (Lipitor) 40 mg QHS PO Last administered on 07/10/18 21:10; Admin Dose 40 MG; Start 07/09/18 at 21:00 Cilostazol (Pletal) 100 mg BID PO Last administered on 07/11/18 08:47; Admin Dose 100 MG; Start 07/09/18 at 21:00 Hydrochlorothiazide (Hydrochlorothiazide) 25 mg DAILY PO Last administered on 07/11/18 08:48; Admin Dose 25 MG; Start 07/10/18 at 09:00 Levothyroxine Sodium (Synthroid) 25 mcg BEFORE BREAKFAST PO Last administered on 07/11/18 06:29; Admin Dose 25 MCG; Start 07/10/18 at 07:00 Losartan Potassium (Cozaar) 50 mg DAILY PO Last administered on 07/11/18 08:47; Admin Dose 50 MG; Start 07/10/18 at 09:00 Metoprolol Succinate (Toprol Xl) 50 mg DAILY PO Last administered on 07/11/18 08:49; Admin Dose 50 MG; Start 07/10/18 at 09:00 Nortriptyline HCl (Aventyl) 10 mg HS PO Last administered on 07/10/18 21:10; Admin Dose 10 MG; Start 07/09/18 at 21:00 Tamsulosin HCl (Flomax) 0.4 mg HS PO Last administered on 07/10/18 21:10; Admin Dose 0.4 MG; Start 07/09/18 at 21:00 IV Flush (NS 3 ml) 3 ml PER PROTOCOL IV ; Start 07/09/18 at 15:30 Ondansetron HCl (Zofran Inj) 4 mg Q6H PRN IV NAUSEA/VOMITING; Start 07/09/18 at 15:30 Acetaminophen (Tylenol Tab) 650 mg Q6H PRN PO .PAIN 1-3 OR TEMP; Start 07/09/18 at 15:30 Acetaminophen/ Hydrocodone Bitart ([employer] (5/325)) 1 tab Q6H PRN PO .PAIN 4-6; Start 07/09/18 at 15:30 Morphine Sulfate (morphine) 2 mg Q4H PRN IV .PAIN 7-10; Start 07/09/18 at 15:30 Vancomycin HCl (Vanco Iv Per Pharmacy) VANCOMYCIN PER PHARMACY PER PROTOCOL XX ; Start 07/09/18 at 15:30 Piperacillin Sod/ Tazobactam Sod 100 ml @ 200 mls/hr Q6 IVPB Last administered on 07/11/18at 12:38; Admin Dose 200 MLS/HR; Start 07/09/18 at 18:00 Metformin HCl (Glucophage Xr) 1,000 mg BID PO Last administered on 07/10/18at 08:31; Admin Dose 1,000 MG; Start 07/09/18 at 21:00 Linagliptin (Tradjenta) 5 mg DAILY PO Last administered on 07/11/18at 13:29; Admin Dose 5 MG; Start 07/10/18 at 09:00 Insulin Aspart (Novolog Insulin Pen) NOVOLOG *MILD* ALGORITHM WITH MEALS BEDTIME SC Last administered on 07/10/18at 12:53; Admin Dose 1 UNIT; Start 07/09/18 at 21:00 Miscellaneous Information 1 ea NOTE XX ; Start 07/09/18 at 20:30 Glucose (Glutose) 15 gm Q15M PRN PO DECREASED GLUCOSE; Start 07/09/18 at 20:30 Glucose (Glutose) 22.5 gm Q15M PRN PO DECREASED GLUCOSE; Start 07/09/18 at 20:30 Dextrose (D50w Syringe) 25 ml Q15M PRN IV DECREASED GLUCOSE; Start 07/09/18 at 20:30 Dextrose (D50w Syringe) 50 ml Q15M PRN IV DECREASED GLUCOSE; Start 07/09/18 at 20:30 Glucagon (Glucagen) 1 mg Q15M PRN IM DECREASED GLUCOSE; Start 07/09/18 at 20:30 Glucose (Glutose) 15 gm Q15M PRN BUCCAL DECREASED GLUCOSE; Start 07/09/18 at 20:30 Vancomycin HCl 1.5 gm/Sodium Chloride 250 ml @ 83.333 mls/ hr Q12H IVPB Last administered on 07/10/18at 21:10; Admin Dose 83.333 MLS/HR; Start 07/10/18 at 10:00 GUILLERMINA JOHNSTON NP July 11, 2018 14:48
[2018-07-11 19:40] VITALS: BP 137/71; PULSE 92; RESP 18
[2018-07-11] MEDS: NORTRIPTYLINE 10 MG CAP PO SCH (20:59)
[2018-07-11] MEDS: ATORVASTATIN 40 MG TAB PO SCH (20:59)
[2018-07-11] MEDS: TAMSULOSIN (SR) 0.4 MG CAP PO SCH (20:59)
[2018-07-12] MEDS: PIPER-TAZO 3.375 GM IV (PMX) 100 ML IVPB SCH ×4 (00:52→17:25)
[2018-07-12 02:30] VITALS: BP 127/58; PULSE 99; RESP 18
[2018-07-12] MEDS: LEVOTHYROXINE 25 MCG TAB PO SCH (06:09)
[2018-07-12 07:42] VITALS: BP 136/63; PULSE 106; RESP 18
[2018-07-12] MEDS: INSULIN ASPART [NOVOLOG] 3 ML PEN SC SCH ×4 (08:00→21:00)
[2018-07-12] MEDS: metFORMIN (XR) 500 MG TAB PO SCH ×2 (08:39→21:12)
[2018-07-12] MEDS: LINAGLIPTIN 5 MG TABLET PO SCH (08:39)
[2018-07-12] MEDS: AMLODIPINE 10 MG TAB PO SCH (08:39)
[2018-07-12] MEDS: METOPROLOL (XL) 50 MG TAB PO SCH (08:40)
[2018-07-12] MEDS: ASPIRIN (EC) 81 MG TAB PO SCH (08:40)
[2018-07-12] MEDS: LOSARTAN 50 MG TAB PO SCH (08:40)
[2018-07-12] MEDS: CILOSTAZOL 100 MG TAB PO SCH ×2 (08:40→21:12)
[2018-07-12] MEDS: HYDROCHLOROTHIAZIDE 25 MG TAB PO SCH (08:40)
--- NOTE | 2018-07-12 13:51 | CONS ---
Assessment/Plan Assessment/Plan Problems: (1) Type 2 diabetes mellitus without complications Status: Chronic Comment: Pt. now back on metformin and linagliptin. Continues to maintain good glycemic control. Primary team continues to manage cellulitis. Will follow. 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 Qualified Codes: E11.9 - Type 2 diabetes mellitus without complications Consultation Date/Type/Reason Admit Date/Time July 09, 2018 at 15:07 Initial Consult Date 07/09/18 Type of Consult Endocrinology Reason for Consultation T2DM management Requesting Provider: REBECCA VO Date/Time of Note DATE: 07/12/18 TIME: 13:49 24 HR Interval Summary Constitutional: no complaints; No improved (feels cellulitic and edematous areas not any better) Detailed Summary Respiratory: no complaints Cardiovascular: no complaints Gastrointestinal: no complaints Genitourinary: no complaints Musculoskeletal: swelling Skin: erythema Neurologic: no complaints Exam/Review of Systems Exam Vitals VS - Last 72 Hours, by Label Date Temp Pulse Resp B/P (MAP) Pulse Ox O2 O2 Flow FiO2 Time Delivery Rate 07/12/18 97.5 106 18 136/63 94 07:42 (87) 07/12/18 98.2 99 18 127/58 96 02:30 (81) 07/11/18 2.0 23:55 07/11/18 98.6 92 18 137/71 96 19:40 (93) 07/11/18 2.0 17:09 07/11/18 98.5 107 18 140/63 95 Room Air 14:29 (88) 07/11/18 98.1 109 20 139/59 97 Nasal 07:39 (85) Cannula 07/11/18 2.0 06:07 07/11/18 98.0 102 18 136/63 97 03:20 (87) 07/10/18 96 2.0 23:17 07/10/18 98.8 99 18 127/57 94 19:16 (80) 07/10/18 98.3 101 20 119/59 95 15:13 (79) 07/10/18 98.5 110 20 137/61 94 08:04 (86) 07/10/18 98.6 103 17 138/62 93 01:12 (87) 07/09/18 98.1 103 18 125/59 100 19:30 (81) 07/09/18 98.2 18 138/63 97 Room Air 18:56 (88) 07/09/18 100 18 139/69 100 Room Air 18:09 (92) 07/09/18 89 17 142/68 100 Room Air 14:21 (92) Vital Signs Date Temp Pulse Resp B/P (MAP) Pulse Ox O2 O2 Flow FiO2 Time Delivery Rate 07/12/18 97.5 106 18 136/63 94 07:42 (87) 07/11/18 2.0 23:55 07/11/18 Room Air 14:29 Intake and Output 07/11/18 07/11/18 07/12/18 1515:00 23:00 07:00 IntakeIntake Total 700 ml 340 ml 586 ml BalanceBalance 700 ml 340 ml 586 ml Constitutional: alert, oriented, obese Respiratory: clear to auscultation, normal air movement Cardiovascular: regular rate and rhythm, edema (1+ BLE); No murmurs/extra sounds, No rub Gastrointestinal: soft, nl liver, spleen, non-tender, bowel sounds; No mass, No rebound or guarding Musculoskeletal: swelling (RUE) Extremities: edema (1+ BLE); No cyanosis, No clubbing Neurological: 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 REPAIR 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 II-XII 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, nl mental status, nl speech, nl strength Skin: rash or lesions (erythema R breast, modestly better than yesterday) Additional Comments Bedside Glucose - 72 Hours Test 07/09/18 20:23 07/10/18 07:53 07/10/18 12:29 07/10/18 17:27 Bedside 117 123 157 101 Glucose mg/dL (70-220) mg/dL (70-220) mg/dL (70-220) mg/dL (70-220) Test 07/10/18 21:12 07/11/18 08:00 07/11/18 12:55 07/11/18 17:40 Bedside 105 120 111 106 Glucose mg/dL (70-220) mg/dL (70-220) mg/dL (70-220) mg/dL (70-220) Test 07/11/18 20:55 07/12/18 08:11 07/12/18 11:50 Bedside 145 126 117 Glucose mg/dL (70-220) mg/dL (70-220) mg/dL (70-220) Results Result Diagram: 07/12/18 0436 07/12/18 0436 Results 24hrs Laboratory Tests Test 07/11/18 17:40 07/11/18 20:55 07/12/18 04:36 07/12/18 08:11 Bedside Glucose 106 145 126 White Blood Count 4.4 L Red Blood Count 3.84 L Hemoglobin 11.4 L Hematocrit 36.1 L Mean Corpuscular Volume 94.0 Mean Corpuscular 29.7 Hemoglobin Mean Corpuscular 31.6 L Hemoglobin Concent Red Cell Distribution 15.7 H Width Platelet Count 214 Mean Platelet Volume 10.1 Immature Granulocytes % 0.500 H Neutrophils % 56.0 Lymphocytes % 26.6 Monocytes % 11.0 Eosinophils % 5.0 Basophils % 0.9 Nucleated Red Blood 0.0 Cells % Immature Granulocytes # 0.020 Neutrophils # 2.5 Lymphocytes # 1.2 Monocytes # 0.5 Eosinophils # 0.2 Basophils # 0.0 Nucleated Red Blood 0.0 Cells # Sodium Level 139 Potassium Level 3.9 Chloride Level 105 Carbon Dioxide Level 27 Anion Gap 7 Blood Urea Nitrogen 21 H Creatinine 0.89 Est Glomerular Filtrat > 60 Rate mL/min Glucose Level 135 Calcium Level 9.0 Phosphorus Level 3.6 Magnesium Level 1.8 Test 07/12/18 11:50 Bedside Glucose 117 Medications Medication Current Medications Amlodipine Besylate (Norvasc) 10 mg DAILY PO Last administered on 07/12/18 08:39; Admin Dose 10 MG; Start 07/10/18 at 09:00 Aspirin (Halfprin) 81 mg DAILY PO Last administered on 07/12/18 08:40; Admin Dose 81 MG; Start 07/10/18 at 09:00 Atorvastatin Calcium (Lipitor) 40 mg QHS PO Last administered on 07/11/18 20:59; Admin Dose 40 MG; Start 07/09/18 at 21:00 Cilostazol (Pletal) 100 mg BID PO Last administered on 07/12/18 08:40; Admin Dose 100 MG; Start 07/09/18 at 21:00 Hydrochlorothiazide (Hydrochlorothiazide) 25 mg DAILY PO Last administered on 07/12/18 08:40; Admin Dose 25 MG; Start 07/10/18 at 09:00 Levothyroxine Sodium (Synthroid) 25 mcg BEFORE BREAKFAST PO Last administered on 07/12/18 06:09; Admin Dose 25 MCG; Start 07/10/18 at 07:00 Losartan Potassium (Cozaar) 50 mg DAILY PO Last administered on 07/12/18 08:40; Admin Dose 50 MG; Start 07/10/18 at 09:00 Metoprolol Succinate (Toprol Xl) 50 mg DAILY PO Last administered on 07/12/18 08:40; Admin Dose 50 MG; Start 07/10/18 at 09:00 Nortriptyline HCl (Aventyl) 10 mg HS PO Last administered on 07/11/18 20:59; Admin Dose 10 MG; Start 07/09/18 at 21:00 Tamsulosin HCl (Flomax) 0.4 mg HS PO Last administered on 07/11/18 20:59; Admin Dose 0.4 MG; Start 07/09/18 at 21:00 IV Flush (NS 3 ml) 3 ml PER PROTOCOL IV ; Start 07/09/18 at 15:30 Ondansetron HCl (Zofran Inj) 4 mg Q6H PRN IV NAUSEA/VOMITING; Start 07/09/18 at 15:30 Acetaminophen (Tylenol Tab) 650 mg Q6H PRN PO .PAIN 1-3 OR TEMP; Start 07/09/18 at 15:30 Acetaminophen/ Hydrocodone Bitart ([place] (5/325)) 1 tab Q6H PRN PO .PAIN 4-6; Start 07/09/18 at 15:30 Morphine Sulfate (morphine) 2 mg Q4H PRN IV .PAIN 7-10; Start 07/09/18 at 15:30 Vancomycin HCl (Vanco Iv Per Pharmacy) VANCOMYCIN PER PHARMACY PER PROTOCOL XX ; Start 07/09/18 at 15:30 Piperacillin Sod/ Tazobactam Sod 100 ml @ 200 mls/hr Q6 IVPB Last administered on 07/12/18at 11:47; Admin Dose 200 MLS/HR; Start 07/09/18 at 18:00 Metformin HCl (Glucophage Xr) 1,000 mg BID PO Last administered on 07/12/18 08 :39; Admin Dose 1,000 MG; Start 07/09/18 at 21:00 Linagliptin (Tradjenta) 5 mg DAILY PO Last administered on 07/12/18 08:39; Admin Dose 5 MG; Start 07/10/18 at 09:00 Insulin Aspart (Novolog Insulin Pen) NOVOLOG *MILD* ALGORITHM WITH MEALS BEDTIME SC Last administered on 07/10/18at 12:53; Admin Dose 1 UNIT; Start 07/09/18 at 21:00 Miscellaneous Information 1 ea NOTE XX ; Start 07/09/18 at 20:30 Glucose (Glutose) 15 gm Q15M PRN PO DECREASED GLUCOSE; Start 07/09/18 at 20:30 Glucose (Glutose) 22.5 gm Q15M PRN PO DECREASED GLUCOSE; Start 07/09/18 at 20:30 Dextrose (D50w Syringe) 25 ml Q15M PRN IV DECREASED GLUCOSE; Start 07/09/18 at 20:30 Dextrose (D50w Syringe) 50 ml Q15M PRN IV DECREASED GLUCOSE; Start 07/09/18 at 20:30 Glucagon (Glucagen) 1 mg Q15M PRN IM DECREASED GLUCOSE; Start 07/09/18 at 20:30 Glucose (Glutose) 15 gm Q15M PRN BUCCAL DECREASED GLUCOSE; Start 07/09/18 at 20:30 Vancomycin HCl 1.5 gm/Sodium Chloride 250 ml @ 83.333 mls/ hr Q24H IVPB Last administered on 07/11/18at 21:40; Admin Dose 83.333 MLS/HR; Start 07/11/18 at 21:00 EDVIN MORGAN MD July 12, 2018 13:51
--- NOTE | 2018-07-12 13:59 | PN ---
Date/Time of Note Date/Time of Note DATE: 07/12/18 TIME: 13:56 Assessment/Plan Lines/Catheters IV Catheter Type (from Nrs): Saline Lock Frazier in Place (from Nrs): No Assessment/Plan Chief Complaint/Hosp Course 1. RUE and chest wall edema and erythema. DDx: cellulitis, vascular, infiltrating ca, other. Punch bx of skin done last week, results pending. Ultrasound right upper extremity negative for DVT, CT chest and right arm noted without abscess formation or foci of air Right breast biopsy 07/04/2018: Skin with reactive stromal fibroblasts,telan giectasia, dermal fibrosis and mild perivascular chronic inflammation. No malignancy -wound drainage cx right chest wall> NGTD -iv abx per ID -nutritional optimization 2. Right chest wall wound with dc at site of bx -as above -local care 3. Morbid obesity, BMI 55. Discussed with him surgical options of weight loss but he is not excited for surgery. 4. DMII, HTN, HL -nutritional optimization -weight loss encouraged 5. Back pain -weight loss encouraged -PT 6. Hypothyroidism -hormone repletion 7. CAD hx s/p 4x CABG -cardiac optimization -weight loss encouraged 8. Tachycardia: -monitor -w/u tx per medical team if persistent Thank you. Patient seen and examined in collaboration with Dr. Jose Mackay. Subjective 24 Hr Interval Summary Tachycardic. No fevers, chills, sob, congested cough, cp, palpitations, cadet, dizziness, n/v/d/dysuria. Exam/Review of Systems Vital Signs Vitals Vital Signs Date Temp Pulse Resp B/P (MAP) Pulse Ox O2 O2 Flow FiO2 Time Delivery Rate 07/12/18 97.5 106 18 136/63 94 07:42 (87) 07/11/18 2.0 23:55 07/11/18 Room Air 14:29 Intake and Output 07/11/18 07/11/18 07/12/18 1515:00 23:00 07:00 IntakeIntake Total 700 ml 340 ml 586 ml BalanceBalance 700 ml 340 ml 586 ml Exam Free Text/Dictation Constitutional: alert, oriented, obese; No distress Psych: nl mood/affect; No anxiety, No confusion Head: normocephalic, atraumatic Eyes: nl conjunctiva, EOMI, PERRL; No icteric ENMT: nl external ears & nose, nl lips & teeth, mucosa pink and moist Neck: supple; No jvd Respiratory: normal air movement; No congested cough, No labored breathing, No wheezing Cardiovascular: regular rate and rhythm, edema (RUE and chest wall improved. BLE); drainage from right breast wound Gastrointestinal: soft, non-tender, other (Obese); No rebound or guarding Musculoskeletal: nl gait and stance; No nl extremities to inspection (RUE edema and erythema), No joint tenderness Extremities: normal pulses, edema; No calf tenderness Neurological: nl mental status, nl speech, nl strength Skin: rash or lesions (RUE and chest wall blanching erythema); No diaphoresis Lymph: nl lymph nodes, nontender Results Result Diagram: 07/12/18 0436 07/12/18 0436 KRIS WIN NP July 12, 2018 13:59
--- NOTE | 2018-07-12 14:18 | PN ---
Date/Time of Note Date/Time of Note DATE: 07/12/18 TIME: 14:15 Objective Vitals Vital Signs Date Temp Pulse Resp B/P (MAP) Pulse Ox O2 O2 Flow FiO2 Time Delivery Rate 07/12/18 97.5 106 18 136/63 94 07:42 (87) 07/11/18 2.0 23:55 07/11/18 Room Air 14:29 Intake and Output 07/11/18 07/11/18 07/12/18 1515:00 23:00 07:00 IntakeIntake Total 700 ml 340 ml 586 ml BalanceBalance 700 ml 340 ml 586 ml Results Result Diagram: 07/12/18 0436 07/12/18 0436 Medications Medications Current Medications Amlodipine Besylate (Norvasc) 10 mg DAILY PO Last administered on 07/12/18 08:39; Admin Dose 10 MG; Start 07/10/18 at 09:00 Aspirin (Halfprin) 81 mg DAILY PO Last administered on 07/12/18 08:40; Admin Dose 81 MG; Start 07/10/18 at 09:00 Atorvastatin Calcium (Lipitor) 40 mg QHS PO Last administered on 07/11/18 20:59; Admin Dose 40 MG; Start 07/09/18 at 21:00 Cilostazol (Pletal) 100 mg BID PO Last administered on 07/12/18 08:40; Admin Dose 100 MG; Start 07/09/18 at 21:00 Hydrochlorothiazide (Hydrochlorothiazide) 25 mg DAILY PO Last administered on 07/12/18 08:40; Admin Dose 25 MG; Start 07/10/18 at 09:00 Levothyroxine Sodium (Synthroid) 25 mcg BEFORE BREAKFAST PO Last administered on 07/12/18 06:09; Admin Dose 25 MCG; Start 07/10/18 at 07:00 Losartan Potassium (Cozaar) 50 mg DAILY PO Last administered on 07/12/18 08:40; Admin Dose 50 MG; Start 07/10/18 at 09:00 Metoprolol Succinate (Toprol Xl) 50 mg DAILY PO Last administered on 07/12/18 08:40; Admin Dose 50 MG; Start 07/10/18 at 09:00 Nortriptyline HCl (Aventyl) 10 mg HS PO Last administered on 07/11/18 20:59; Admin Dose 10 MG; Start 07/09/18 at 21:00 Tamsulosin HCl (Flomax) 0.4 mg HS PO Last administered on 07/11/18 20:59; Admin Dose 0.4 MG; Start 07/09/18 at 21:00 IV Flush (NS 3 ml) 3 ml PER PROTOCOL IV ; Start 07/09/18 at 15:30 Ondansetron HCl (Zofran Inj) 4 mg Q6H PRN IV NAUSEA/VOMITING; Start 07/09/18 at 15:30 Acetaminophen (Tylenol Tab) 650 mg Q6H PRN PO .PAIN 1-3 OR TEMP; Start 07/09/18 at 15:30 Acetaminophen/ Hydrocodone Bitart ([place] (5/325)) 1 tab Q6H PRN PO .PAIN 4-6; Start 07/09/18 at 15:30 Morphine Sulfate (morphine) 2 mg Q4H PRN IV .PAIN 7-10; Start 07/09/18 at 15:30 Vancomycin HCl (Vanco Iv Per Pharmacy) VANCOMYCIN PER PHARMACY PER PROTOCOL XX ; Start 07/09/18 at 15:30 Piperacillin Sod/ Tazobactam Sod 100 ml @ 200 mls/hr Q6 IVPB Last administered on 07/12/18at 11:47; Admin Dose 200 MLS/HR; Start 07/09/18 at 18:00 Metformin HCl (Glucophage Xr) 1,000 mg BID PO Last administered on 07/12/18 08:39; Admin Dose 1,000 MG; Start 07/09/18 at 21:00 Linagliptin (Tradjenta) 5 mg DAILY PO Last administered on 07/12/18at 08:39; Admin Dose 5 MG; Start 07/10/18 at 09:00 Insulin Aspart (Novolog Insulin Pen) NOVOLOG *MILD* ALGORITHM WITH MEALS BEDTIME SC Last administered on 07/10/18at 12:53; Admin Dose 1 UNIT; Start 07/09/18 at 21:00 Miscellaneous Information 1 ea NOTE XX ; Start 07/09/18 at 20:30 Glucose (Glutose) 15 gm Q15M PRN PO DECREASED GLUCOSE; Start 07/09/18 at 20:30 Glucose (Glutose) 22.5 gm Q15M PRN PO DECREASED GLUCOSE; Start 07/09/18 at 20:30 Dextrose (D50w Syringe) 25 ml Q15M PRN IV DECREASED GLUCOSE; Start 07/09/18 at 20:30 Dextrose (D50w Syringe) 50 ml Q15M PRN IV DECREASED GLUCOSE; Start 07/09/18 at 20:30 Glucagon (Glucagen) 1 mg Q15M PRN IM DECREASED GLUCOSE; Start 07/09/18 at 20:30 Glucose (Glutose) 15 gm Q15M PRN BUCCAL DECREASED GLUCOSE; Start 07/09/18 at 20:30 Vancomycin HCl 1.5 gm/Sodium Chloride 250 ml @ 83.333 mls/ hr Q24H IVPB Last administered on 07/11/18at 21:40; Admin Dose 83.333 MLS/HR; Start 07/11/18 at 21:00 VTE Prophylaxis Risk score (from Ns)>0 risk: 3 [place] [facility] [place]CD contraindication: other Lines/Catheters IV Catheter Type: Frazier in Place: No Assessment/Plan Hospital Course Subjective no acute complaints, some minor pain in chest and arm. Objective Physical exam General: Patient is laying in bed and answers questions appropriately Mentation: Patient is alert and oriented 4, Head: Normocephalic atraumatic Eyes: EOMI, pupils reactive to light Neck: Supple, nontender, midline Respiratory: Clear to auscultation bilaterally Cardiovascular: regular rate, no obvious murmurs Gastrointestinal: non-tender to palpation, bowel sounds heard. Neurological: Moves all extremities spontaneously Skin: Right breast area, erythematous, bandaged. Right upper extremity forearm erythematous, bandaged Assessment and plan Right breast cellulitis -Patient received mammogram outpatient, biopsy was done by general surgeon last week, patient attempted Keflex outpatient however continued to be erythematous and drained pus. -Broad-spectrum IV antibiotic -Infectious disease consulted -CT scan with contrast done, no abscess -Patient's general surgeon has been consulted, Dr. Mackay, biopsy done in office did not show any malignancy or other pure etiology Right forearm cellulitis -Subacute at this time, been going on for approximately 6 weeks -CT arm showing cellulitis, no abscess -Duplex venous negative for DVT Coronary artery disease with history of CABG in 1999 -Continue home medications Diabetes mellitus -Patient's knapsack sprayer consulted, meds adjusted Hypothyroidism -Continue home meds Mood disorder -Continue home meds Dyslipidemia -Continue home meds Hypertension -Continue home meds Disposition -cont abx, f/u with culture/biopsy results REBECCA VO July 12, 2018 14:18
--- NOTE | 2018-07-12 15:15 | CONS ---
Assessment/Plan Assessment/Plan Hospital Course (Demo Recall) Patient is awake, feels better Upper extremity CT revealed moderate cellulitis no suggestion for abscess or necrotizing fasciitis please see full report in the chart CT of the chest revealed no abscess Antimicrobials: Patient is on IV vancomycin and Zosyn Physical examination: This is a morbidly obese well-developed elderly man who is alert in no distress. Head atraumatic normocephalic. Neck is obese. Chest rise symmetrical breath sounds diminished bases. erythema improved. Heart: S1- S2. Abdomen soft bowel sounds present. Extremities: Right upper extremity edema and erythema bettre Assessment: 1. Right upper extremity cellulitis 2. Chest wall cellulitis questionable abscess 3. Morbid obesity 4. Diabetes 5. Coronary artery disease status post CABG Plan: Stable, overall improved, RUE and chest look much better, continue on IV abx for now Consultation Date/Type/Reason Admit Date/Time July 09, 2018 at 15:07 Initial Consult Date 07/09/18 Type of Consult id Requesting Provider: REBECCA VO Date/Time of Note DATE: 07/12/18 TIME: 15:13 Exam/Review of Systems Exam Vitals Vital Signs Date Temp Pulse Resp B/P (MAP) Pulse Ox O2 O2 Flow FiO2 Time Delivery Rate 07/12/18 97.5 106 18 136/63 94 07:42 (87) 07/11/18 2.0 23:55 07/11/18 Room Air 14:29 Intake and Output 07/11/18 07/11/18 07/12/18 1515:00 23:00 07:00 IntakeIntake Total 700 ml 340 ml 586 ml BalanceBalance 700 ml 340 ml 586 ml Results Result Diagram: 07/12/18 0436 07/12/18 0436 Results 24hrs Laboratory Tests Test 07/11/18 17:40 07/11/18 20:55 07/12/18 04:36 07/12/18 08:11 Bedside Glucose 106 145 126 White Blood Count 4.4 L Red Blood Count 3.84 L Hemoglobin 11.4 L Hematocrit 36.1 L Mean Corpuscular Volume 94.0 Mean Corpuscular 29.7 Hemoglobin Mean Corpuscular 31.6 L Hemoglobin Concent Red Cell Distribution 15.7 H Width Platelet Count 214 Mean Platelet Volume 10.1 Immature Granulocytes % 0.500 H Neutrophils % 56.0 Lymphocytes % 26.6 Monocytes % 11.0 Eosinophils % 5.0 Basophils % 0.9 Nucleated Red Blood 0.0 Cells % Immature Granulocytes # 0.020 Neutrophils # 2.5 Lymphocytes # 1.2 Monocytes # 0.5 Eosinophils # 0.2 Basophils # 0.0 Nucleated Red Blood 0.0 Cells # Sodium Level 139 Potassium Level 3.9 Chloride Level 105 Carbon Dioxide Level 27 Anion Gap 7 Blood Urea Nitrogen 21 H Creatinine 0.89 Est Glomerular Filtrat > 60 Rate mL/min Glucose Level 135 Calcium Level 9.0 Phosphorus Level 3.6 Magnesium Level 1.8 Test 07/12/18 11:50 Bedside Glucose 117 Medications Medication Current Medications Amlodipine Besylate (Norvasc) 10 mg DAILY PO Last administered on 07/12/18 08:39; Admin Dose 10 MG; Start 07/10/18 at 09:00 Aspirin (Halfprin) 81 mg DAILY PO Last administered on 07/12/18 08:40; Admin Dose 81 MG; Start 07/10/18 at 09:00 Atorvastatin Calcium (Lipitor) 40 mg QHS PO Last administered on 07/11/18 20:59; Admin Dose 40 MG; Start 07/09/18 at 21:00 Cilostazol (Pletal) 100 mg BID PO Last administered on 07/12/18 08:40; Admin Dose 100 MG; Start 07/09/18 at 21:00 Hydrochlorothiazide (Hydrochlorothiazide) 25 mg DAILY PO Last administered on 07/12/18 08:40; Admin Dose 25 MG; Start 07/10/18 at 09:00 Levothyroxine Sodium (Synthroid) 25 mcg BEFORE BREAKFAST PO Last administered on 07/12/18 06:09; Admin Dose 25 MCG; Start 07/10/18 at 07:00 Losartan Potassium (Cozaar) 50 mg DAILY PO Last administered on 07/12/18 08:40; Admin Dose 50 MG; Start 07/10/18 at 09:00 Metoprolol Succinate (Toprol Xl) 50 mg DAILY PO Last administered on 07/12/18 08:40; Admin Dose 50 MG; Start 07/10/18 at 09:00 Nortriptyline HCl (Aventyl) 10 mg HS PO Last administered on 07/11/18 20:59; Admin Dose 10 MG; Start 07/09/18 at 21:00 Tamsulosin HCl (Flomax) 0.4 mg HS PO Last administered on 07/11/18at 20:59; Admin Dose 0.4 MG; Start 07/09/18 at 21:00 IV Flush (NS 3 ml) 3 ml PER PROTOCOL IV ; Start 07/09/18 at 15:30 Ondansetron HCl (Zofran Inj) 4 mg Q6H PRN IV NAUSEA/VOMITING; Start 07/09/18 at 15:30 Acetaminophen (Tylenol Tab) 650 mg Q6H PRN PO .PAIN 1-3 OR TEMP; Start 07/09/18 at 15:30 Acetaminophen/ Hydrocodone Bitart ([place] (5/325)) 1 tab Q6H PRN PO .PAIN 4-6; Start 07/09/18 at 15:30 Morphine Sulfate (morphine) 2 mg Q4H PRN IV .PAIN 7-10; Start 07/09/18 at 15:30 Vancomycin HCl (Vanco Iv Per Pharmacy) VANCOMYCIN PER PHARMACY PER PROTOCOL XX ; Start 07/09/18 at 15:30 Piperacillin Sod/ Tazobactam Sod 100 ml @ 200 mls/hr Q6 IVPB Last administered on 07/12/18at 11:47; Admin Dose 200 MLS/HR; Start 07/09/18 at 18:00 Metformin HCl (Glucophage Xr) 1,000 mg BID PO Last administered on 07/12/18at 08:39; Admin Dose 1,000 MG; Start 07/09/18 at 21:00 Linagliptin (Tradjenta) 5 mg DAILY PO Last administered on 07/12/18at 08:39; Admin Dose 5 MG; Start 07/10/18 at 09:00 Insulin Aspart (Novolog Insulin Pen) NOVOLOG *MILD* ALGORITHM WITH MEALS BEDTIME SC Last administered on 07/10/18at 12:53; Admin Dose 1 UNIT; Start 07/09/18 at 21:00 Miscellaneous Information 1 ea NOTE XX ; Start 07/09/18 at 20:30 Glucose (Glutose) 15 gm Q15M PRN PO DECREASED GLUCOSE; Start 07/09/18 at 20:30 Glucose (Glutose) 22.5 gm Q15M PRN PO DECREASED GLUCOSE; Start 07/09/18 at 20:30 Dextrose (D50w Syringe) 25 ml Q15M PRN IV DECREASED GLUCOSE; Start 07/09/18 at 20:30 Dextrose (D50w Syringe) 50 ml Q15M PRN IV DECREASED GLUCOSE; Start 07/09/18 at 20:30 Glucagon (Glucagen) 1 mg Q15M PRN IM DECREASED GLUCOSE; Start 07/09/18 at 20:30 Glucose (Glutose) 15 gm Q15M PRN BUCCAL DECREASED GLUCOSE; Start 07/09/18 at 20:30 Vancomycin HCl 1.5 gm/Sodium Chloride 250 ml @ 83.333 mls/ hr Q24H IVPB Last administered on 07/11/18at 21:40; Admin Dose 83.333 MLS/HR; Start 07/11/18 at 21:00 Nystatin (Nystatin Powder) 1 applic BID TOP ; Start 07/12/18 at 15:30 GUILLERMINA JOHNSTON NP July 12, 2018 15:15
[2018-07-12] MEDS: NYSTATIN 30 GM POWDER BTL TOP SCH ×2 (15:30→21:06)
[2018-07-12 15:59] VITALS: BP 113/56; PULSE 90; RESP 18
[2018-07-12 19:39] VITALS: BP 135/63; PULSE 90; RESP 18
[2018-07-12] MEDS: VANCOMYCIN HCL 1.5 GM in SOD CHLORIDE 0.9% 250 ML IVPB SCH (21:08)
[2018-07-12] MEDS: ATORVASTATIN 40 MG TAB PO SCH (21:12)
[2018-07-12] MEDS: TAMSULOSIN (SR) 0.4 MG CAP PO SCH (21:12)
[2018-07-12] MEDS: NORTRIPTYLINE 10 MG CAP PO SCH (21:12)
[2018-07-13] MEDS: PIPER-TAZO 3.375 GM IV (PMX) 100 ML IVPB SCH ×4 (00:41→18:05)
[2018-07-13 01:33] VITALS: BP 128/64; PULSE 98; RESP 18
[2018-07-13] MEDS: LEVOTHYROXINE 25 MCG TAB PO SCH (06:22)
[2018-07-13 07:39] VITALS: BP 130/58; PULSE 110; RESP 18
[2018-07-13] MEDS: INSULIN ASPART [NOVOLOG] 3 ML PEN SC SCH ×4 (08:00→20:07)
[2018-07-13] MEDS: metFORMIN (XR) 500 MG TAB PO SCH ×2 (08:21→20:05)
[2018-07-13] MEDS: HYDROCHLOROTHIAZIDE 25 MG TAB PO SCH (08:22)
[2018-07-13] MEDS: CILOSTAZOL 100 MG TAB PO SCH ×2 (08:22→20:05)
[2018-07-13] MEDS: ASPIRIN (EC) 81 MG TAB PO SCH (08:22)
[2018-07-13] MEDS: LINAGLIPTIN 5 MG TABLET PO SCH (08:22)
[2018-07-13] MEDS: LOSARTAN 50 MG TAB PO SCH (08:23)
[2018-07-13] MEDS: METOPROLOL (XL) 50 MG TAB PO SCH (08:23)
[2018-07-13] MEDS: AMLODIPINE 10 MG TAB PO SCH (08:23)
[2018-07-13] MEDS: NYSTATIN 30 GM POWDER BTL TOP SCH ×2 (11:59→20:06)
--- NOTE | 2018-07-13 12:11 | PN ---
Date/Time of Note Date/Time of Note DATE: 07/13/18 TIME: 12:07 Assessment/Plan Lines/Catheters IV Catheter Type (from Nrs): Saline Lock Frazier in Place (from Nrs): No Assessment/Plan Chief Complaint/Hosp Course 1. RUE and chest wall edema and erythema. DDx: cellulitis, vascular, infiltrating ca, other. Punch bx of skin done last week, results pending. Ultrasound right upper extremity negative for DVT, CT chest and right arm noted without abscess formation or foci of air; clinically improving Right breast biopsy 07/04/2018: Skin with reactive stromal fibroblasts,telangiectasia, dermal fibrosis and mild perivascular chronic inflammation. No malignancy -wound drainage cx right chest wall> NGTD -continue iv abx per ID -nutritional optimization 2. Right chest wall wound with dc at site of bx -as above -continue local care 3. Morbid obesity, BMI 55. Discussed with him surgical options of weight loss but he is not excited for surgery. 4. DMII, HTN, HL -nutritional optimization -weight loss encouraged 5. Back pain -weight loss encouraged -PT 6. Hypothyroidism -hormone repletion 7. CAD hx s/p 4x CABG -cardiac optimization -weight loss encouraged 8. Tachycardia: -monitor -w/u tx per medical team if persistent Thank you. Patient seen and examined in collaboration with Dr. Jose Mackay. Subjective 24 Hr Interval Summary Continues to be tachycardic. Right arm and chest redness and swelling continuing to improve. Still with intermittent drainage from arms and chest.no fevers, No congested cough, chest pain, palpitations, nausea, vomiting, new skin issues. Exam/Review of Systems Vital Signs Vitals Vital Signs Date Temp Pulse Resp B/P (MAP) Pulse Ox O2 O2 Flow FiO2 Time Delivery Rate 07/13/18 98.5 96 18 130/60 97 14:36 (83) 07/12/18 Room Air 15:59 07/11/18 2.0 23:55 Intake and Output 07/12/18 07/12/18 07/13/18 1414:59 22:59 06:59 IntakeIntake Total 938 ml 460 ml 350 ml BalanceBalance 938 ml 460 ml 350 ml Exam Free Text/Dictation Constitutional: alert, oriented, obese; No distress Psych: nl mood/affect; No anxiety, No confusion Head: normocephalic, atraumatic Eyes: nl conjunctiva, EOMI, PERRL; No icteric ENMT: nl external ears & nose, nl lips & teeth, mucosa pink and moist Neck: supple; No jvd Respiratory: normal air movement; No congested cough, No labored breathing, No wheezing Cardiovascular: regular rate and rhythm, edema (RUE and chest wall improved. BLE); drainage from right breast wound Gastrointestinal: soft, non-tender, other (Obese); No rebound or guarding Musculoskeletal: nl gait and stance; No nl extremities to inspection (RUE edema and erythema- improving), No joint tenderness Extremities: normal pulses, edema; No calf tenderness Neurological: nl mental status, nl speech, nl strength Skin: rash or lesions (RUE and chest wall blanching erythema-improving); No diaphoresis Lymph: nl lymph nodes, nontender Results Result Diagram: 07/13/18 0432 07/13/18 0432 KRIS WIN NP July 13, 2018 12:11
--- NOTE | 2018-07-13 12:20 | CONS ---
Assessment/Plan Assessment/Plan Hospital Course (Demo Recall) All noted, no acute changes over night Upper extremity CT revealed moderate cellulitis no suggestion for abscess or necrotizing fasciitis please see full report in the chart CT of the chest rev ealed no abscess Antimicrobials: Patient is on IV vancomycin and Zosyn Physical examination: This is a morbidly obese well-developed elderly man who is alert in no distress. Head atraumatic normocephalic. Neck is obese. Chest rise symmetrical breath sounds diminished bases. erythema improved. Heart: S1- S2. Abdomen soft bowel sounds present. Extremities: Right upper extremity edema and erythema bettre Assessment: 1. Right upper extremity cellulitis 2. Chest wall cellulitis questionable abscess 3. Morbid obesity 4. Diabetes 5. Coronary artery disease status post CABG Plan: Improving, continue abx, anticipate dc on PO Bactrim and Cipro for 10 more days Consultation Date/Type/Reason Admit Date/Time July 09, 2018 at 15:07 Initial Consult Date 07/09/18 Type of Consult id Requesting Provider: REBECCA VO Date/Time of Note DATE: 07/13/18 TIME: 12:19 Exam/Review of Systems Exam Vitals Vital Signs Date Temp Pulse Resp B/P (MAP) Pulse Ox O2 O2 Flow FiO2 Time Delivery Rate 07/13/18 98.2 110 18 130/58 94 07:39 (82) 07/12/18 Room Air 15:59 07/11/18 2.0 23:55 Intake and Output 07/12/18 07/12/18 07/13/18 1515:00 23:00 07:00 IntakeIntake Total 820 ml 460 ml 350 ml BalanceBalance 820 ml 460 ml 350 ml Results Result Diagram: 07/13/18 0432 07/13/18 0432 Results 24hrs Laboratory Tests Test 07/12/18 17:24 07/12/18 21:05 07/13/18 04:32 07/13/18 07:51 Bedside Glucose 108 134 113 White Blood Count 4.1 L Red Blood Count 3.94 L Hemoglobin 11.6 L Hematocrit 36.8 L Mean Corpuscular 93.4 Volume Mean Corpuscular 29.4 Hemoglobin Mean Corpuscular 31.5 L Hemoglobin Concent Red Cell Distribution 15.7 H Width Platelet Count 220 Mean Platelet Volume 10.0 Immature Granulocytes 0.500 H % Neutrophils % 57.5 Lymphocytes % 24.9 Monocytes % 10.4 Eosinophils % 5.7 Basophils % 1.0 Nucleated Red Blood 0.0 Cells % Immature Granulocytes 0.020 # Neutrophils # 2.3 Lymphocytes # 1.0 Monocytes # 0.4 Eosinophils # 0.2 Basophils # 0.0 Nucleated Red Blood 0.0 Cells # Sodium Level 140 Potassium Level 4.0 Chloride Level 106 Carbon Dioxide Level 26 Anion Gap 8 Blood Urea Nitrogen 21 H Creatinine 0.88 Est Glomerular > 60 Filtrat Rate mL/min Glucose Level 123 Calcium Level 9.1 Phosphorus Level 3.7 Magnesium Level 1.8 Test 07/13/18 12:05 Bedside Glucose 105 Medications Medication Current Medications Amlodipine Besylate (Norvasc) 10 mg DAILY PO Last administered on 07/13/18 08:23; Admin Dose 10 MG; Start 07/10/18 at 09:00 Aspirin (Halfprin) 81 mg DAILY PO Last administered on 07/13/18 08:22; Admin Dose 81 MG; Start 07/10/18 at 09:00 Atorvastatin Calcium (Lipitor) 40 mg QHS PO Last administered on 07/12/18 21:12; Admin Dose 40 MG; Start 07/09/18 at 21:00 Cilostazol (Pletal) 100 mg BID PO Last administered on 07/13/18 08:22; Admin Dose 100 MG; Start 07/09/18 at 21:00 Hydrochlorothiazide (Hydrochlorothiazide) 25 mg DAILY PO Last administered on 07/13/18 08:22; Admin Dose 25 MG; Start 07/10/18 at 09:00 Levothyroxine Sodium (Synthroid) 25 mcg BEFORE BREAKFAST PO Last administered on 07/13/18 06:22; Admin Dose 25 MCG; Start 07/10/18 at 07:00 Losartan Potassium (Cozaar) 50 mg DAILY PO Last administered on 07/13/18 08:23; Admin Dose 50 MG; Start 07/10/18 at 09:00 Metoprolol Succinate (Toprol Xl) 50 mg DAILY PO Last administered on 07/13/18 08:23; Admin Dose 50 MG; Start 07/10/18 at 09:00 Nortriptyline HCl (Aventyl) 10 mg HS PO Last administered on 07/12/18 21:12; Admin Dose 10 MG; Start 07/09/18 at 21:00 Tamsulosin HCl (Flomax) 0.4 mg HS PO Last administered on 07/12/18at 21:12; Admin Dose 0.4 MG; Start 07/09/18 at 21:00 IV Flush (NS 3 ml) 3 ml PER PROTOCOL IV ; Start 07/09/18 at 15:30 Ondansetron HCl (Zofran Inj) 4 mg Q6H PRN IV NAUSEA/VOMITING; Start 07/09/18 at 15:30 Acetaminophen (Tylenol Tab) 650 mg Q6H PRN PO .PAIN 1-3 OR TEMP; Start 07/09/18 at 15:30 Acetaminophen/ Hydrocodone Bitart ([place] (5/325)) 1 tab Q6H PRN PO .PAIN 4-6; Start 07/09/18 at 15:30 Morphine Sulfate (morphine) 2 mg Q4H PRN IV .PAIN 7-10; Start 07/09/18 at 15:30 Vancomycin HCl (Vanco Iv Per Pharmacy) VANCOMYCIN PER PHARMACY PER PROTOCOL XX ; Start 07/09/18 at 15:30 Piperacillin Sod/ Tazobactam Sod 100 ml @ 200 mls/hr Q6 IVPB Last administered on 07/13/18at 11:59; Admin Dose 200 MLS/HR; Start 07/09/18 at 18:00 Metformin HCl (Glucophage Xr) 1,000 mg BID PO Last administered on 07/13/18at 08:21; Admin Dose 1,000 MG; Start 07/09/18 at 21:00 Linagliptin (Tradjenta) 5 mg DAILY PO Last administered on 07/13/18at 08:22; Admin Dose 5 MG; Start 07/10/18 at 09:00 Insulin Aspart (Novolog Insulin Pen) NOVOLOG *MILD* ALGORITHM WITH MEALS BEDTIME SC Last administered on 07/10/18at 12:53; Admin Dose 1 UNIT; Start 07/09/18 at 21:00 Miscellaneous Information 1 ea NOTE XX ; Start 07/09/18 at 20:30 Glucose (Glutose) 15 gm Q15M PRN PO DECREASED GLUCOSE; Start 07/09/18 at 20:30 Glucose (Glutose) 22.5 gm Q15M PRN PO DECREASED GLUCOSE; Start 07/09/18 at 20:30 Dextrose (D50w Syringe) 25 ml Q15M PRN IV DECREASED GLUCOSE; Start 07/09/18 at 20:30 Dextrose (D50w Syringe) 50 ml Q15M PRN IV DECREASED GLUCOSE; Start 07/09/18 at 20:30 Glucagon (Glucagen) 1 mg Q15M PRN IM DECREASED GLUCOSE; Start 07/09/18 at 20:30 Glucose (Glutose) 15 gm Q15M PRN BUCCAL DECREASED GLUCOSE; Start 07/09/18 at 20:30 Vancomycin HCl 1.5 gm/Sodium Chloride 250 ml @ 83.333 mls/ hr Q24H IVPB Last administered on 07/12/18at 21:08; Admin Dose 83.333 MLS/HR; Start 07/11/18 at 21:00 Nystatin (Nystatin Powder) 1 applic BID TOP Last administered on 07/13/18at 11:59; Admin Dose 1 APPLIC; Start 07/12/18 at 15:30 GUILLERMINA JOHNSTON NP July 13, 2018 12:20
--- NOTE | 2018-07-13 12:41 | PN ---
Date/Time of Note Date/Time of Note DATE: 07/13/18 TIME: 12:41 Objective Vitals Vital Signs Date Temp Pulse Resp B/P (MAP) Pulse Ox O2 O2 Flow FiO2 Time Delivery Rate 07/13/18 98.2 110 18 130/58 94 07:39 (82) 07/12/18 Room Air 15:59 07/11/18 2.0 23:55 Intake and Output 07/12/18 07/12/18 07/13/18 1414:59 22:59 06:59 IntakeIntake Total 938 ml 460 ml 350 ml BalanceBalance 938 ml 460 ml 350 ml Results Result Diagram: 07/13/1843107/13/18431 Medications Medications Current Medications Amlodipine Besylate (Norvasc) 10 mg DAILY PO Last administered on 07/13/18 08:23; Admin Dose 10 MG; Start 07/10/18 at 09:00 Aspirin (Halfprin) 81 mg DAILY PO Last administered on 07/13/18 08:22; Admin Dose 81 MG; Start 07/10/18 at 09:00 Atorvastatin Calcium (Lipitor) 40 mg QHS PO Last administered on 07/12/18 21:12; Admin Dose 40 MG; Start 07/09/18 at 21:00 Cilostazol (Pletal) 100 mg BID PO Last administered on 07/13/18 08:22; Admin Dose 100 MG; Start 07/09/18 at 21:00 Hydrochlorothiazide (Hydrochlorothiazide) 25 mg DAILY PO Last administered on 07/13/18 08:22; Admin Dose 25 MG; Start 07/10/18 at 09:00 Levothyroxine Sodium (Synthroid) 25 mcg BEFORE BREAKFAST PO Last administered on 07/13/18 06:22; Admin Dose 25 MCG; Start 07/10/18 at 07:00 Losartan Potassium (Cozaar) 50 mg DAILY PO Last administered on 07/13/18 08:23; Admin Dose 50 MG; Start 07/10/18 at 09:00 Metoprolol Succinate (Toprol Xl) 50 mg DAILY PO Last administered on 07/13/18 08:23; Admin Dose 50 MG; Start 07/10/18 at 09:00 Nortriptyline HCl (Aventyl) 10 mg HS PO Last administered on 07/12/18 21:12; Admin Dose 10 MG; Start 07/09/18 at 21:00 Tamsulosin HCl (Flomax) 0.4 mg HS PO Last administered on 07/12/18at 21:12; Admin Dose 0.4 MG; Start 07/09/18 at 21:00 IV Flush (NS 3 ml) 3 ml PER PROTOCOL IV ; Start 07/09/18 at 15:30 Ondansetron HCl (Zofran Inj) 4 mg Q6H PRN IV NAUSEA/VOMITING; Start 07/09/18 at 15:30 Acetaminophen (Tylenol Tab) 650 mg Q6H PRN PO .PAIN 1-3 OR TEMP; Start 07/09/18 at 15:30 Acetaminophen/ Hydrocodone Bitart ([place] (5/325)) 1 tab Q6H PRN PO .PAIN 4-6; Start 07/09/18 at 15:30 Morphine Sulfate (morphine) 2 mg Q4H PRN IV .PAIN 7-10; Start 07/09/18 at 15:30 Vancomycin HCl (Vanco Iv Per Pharmacy) VANCOMYCIN PER PHARMACY PER PROTOCOL XX ; Start 07/09/18 at 15:30 Piperacillin Sod/ Tazobactam Sod 100 ml @ 200 mls/hr Q6 IVPB Last administered on 07/13/18at 11:59; Admin Dose 200 MLS/HR; Start 07/09/18 at 18:00 Metformin HCl (Glucophage Xr) 1,000 mg BID PO Last administered on 07/13/18at 08:21; Admin Dose 1,000 MG; Start 07/09/18 at 21:00 Linagliptin (Tradjenta) 5 mg DAILY PO Last administered on 07/13/18at 08:22; Admin Dose 5 MG; Start 07/10/18 at 09:00 Insulin Aspart (Novolog Insulin Pen) NOVOLOG *MILD* ALGORITHM WITH MEALS BEDTIME SC Last administered on 07/10/18at 12:53; Admin Dose 1 UNIT; Start 07/09/18 at 21:00 Miscellaneous Information 1 ea NOTE XX ; Start 07/09/18 at 20:30 Glucose (Glutose) 15 gm Q15M PRN PO DECREASED GLUCOSE; Start 07/09/18 at 20:30 Glucose (Glutose) 22.5 gm Q15M PRN PO DECREASED GLUCOSE; Start 07/09/18 at 20:30 Dextrose (D50w Syringe) 25 ml Q15M PRN IV DECREASED GLUCOSE; Start 07/09/18 at 20:30 Dextrose (D50w Syringe) 50 ml Q15M PRN IV DECREASED GLUCOSE; Start 07/09/18 at 20:30 Glucagon (Glucagen) 1 mg Q15M PRN IM DECREASED GLUCOSE; Start 07/09/18 at 20:30 Glucose (Glutose) 15 gm Q15M PRN BUCCAL DECREASED GLUCOSE; Start 07/09/18 at 20:30 Vancomycin HCl 1.5 gm/Sodium Chloride 250 ml @ 83.333 mls/ hr Q24H IVPB Last administered on 07/12/18at 21:08; Admin Dose 83.333 MLS/HR; Start 07/11/18 at 21:00 Nystatin (Nystatin Powder) 1 applic BID TOP Last administered on 07/13/18at 11:59; Admin Dose 1 APPLIC; Start 07/12/18 at 15:30 VTE Prophylaxis Risk score (from [facility])>0 risk: 3 SCD applied (from [facility]): No SCD contraindication: other Lines/Catheters IV Catheter Type: Frazier in Place: No Assessment/Plan Hospital Course Subjective no acute complaints, some minor pain in chest and arm. Objective Physical exam General: Patient is laying in bed and answers questions appropriately Mentation: Patient is alert and oriented 4, Head: Normocephalic atraumatic Eyes: EOMI, pupils reactive to light Neck: Supple, nontender, midline Respiratory: Clear to auscultation bilaterally Cardiovascular: regular rate, no obvious murmurs Gastrointestinal: non-tender to palpation, bowel sounds heard. Neurological: Moves all extremities spontaneously Skin: Right breast area, erythematous, bandaged. Right upper extremity forearm erythematous, bandaged Assessment and plan Right breast cellulitis -Patient received mammogram outpatient, biopsy was done by general surgeon last week, patient attempted Keflex outpatient however continued to be erythematous and drained pus. -Broad-spectrum IV antibiotic -Infectious disease consulted -CT scan with contrast done, no abscess -Patient's general surgeon has been consulted, Dr. Mackay, biopsy done in office did not show any malignancy or other pure etiology Right forearm cellulitis -Subacute at this time, been going on for approximately 6 weeks -CT arm showing cellulitis, no abscess -Duplex venous negative for DVT Coronary artery disease with history of CABG in 1999 -Continue home medications Diabetes mellitus -Patient's head sulfide operator consulted, meds adjusted Hypothyroidism -Continue home meds Mood disorder -Continue home meds Dyslipidemia -Continue home meds Hypertension -Continue home meds Disposition -cont abx, f/u with culture/biopsy results REBECCA VO July 13, 2018 12:41
[2018-07-13 14:36] VITALS: BP 130/60; PULSE 96; RESP 18
--- NOTE | 2018-07-13 19:22 | CONS ---
Assessment/Plan Assessment/Plan Problems: (1) Type 2 diabetes mellitus without complications Status: Chronic Comment: Cont./ current regimen of metformin and linagliptin as excellent control of glucose continues. Qualifiers: Diabetes mellitus snf insulin use: without snf use Qualified Codes: E11.9 - Type 2 diabetes mellitus without complications (2) Hypothyroidism Status: Chronic Comment: Cont. low-dose LT4 Consultation Date/Type/Reason Admit Date/Time July 09, 2018 at 15:07 Initial Consult Date 07/09/18 Type of Consult Endocrinology Reason for Consultation T2DM management Requesting Provider: REBECCA VO Date/Time of Note DATE: 07/13/18 TIME: 19:20 24 HR Interval Summary Constitutional: no complaints Detailed Summary Respiratory: no complaints Cardiovascular: no complaints Gastrointestinal: no complaints Genitourinary: no complaints Musculoskeletal: swelling Neurologic: no complaints Exam/Review of Systems Exam Vitals VS - Last 72 Hours, by Label Date Temp Pulse Resp B/P (MAP) Pulse Ox O2 O2 Flow FiO2 Time Delivery Rate 07/13/18 98.5 96 18 130/60 97 14:36 (83) 07/13/18 98.2 110 18 130/58 94 07:39 (82) 07/13/18 99.2 98 18 128/64 94 01:33 (85) 07/12/18 98.8 90 18 135/63 96 19:39 (87) 07/12/18 98.1 90 18 113/56 95 Room Air 15:59 (75) 07/12/18 97.5 106 18 136/63 94 07:42 (87) 07/12/18 98.2 99 18 127/58 96 02:30 (81) 07/11/18 2.0 23:55 07/11/18 98.6 92 18 137/71 96 19:40 (93) 07/11/18 2.0 17:09 07/11/18 98.5 107 18 140/63 95 Room Air 14:29 (88) 07/11/18 98.1 109 20 139/59 97 Nasal 07:39 (85) Cannula 07/11/18 2.0 06:07 07/11/18 98.0 102 18 136/63 97 03:20 (87) 07/10/18 96 2.0 23:17 Vital Signs Date Temp Pulse Resp B/P (MAP) Pulse Ox O2 O2 Flow FiO2 Time Delivery Rate 07/13/18 98.5 96 18 130/60 97 14:36 (83) 07/12/18 Room Air 15:59 07/11/18 2.0 23:55 Intake and Output 07/12/18 07/12/18 07/13/18 1515:00 23:00 07:00 IntakeIntake Total 820 ml 460 ml 350 ml BalanceBalance 820 ml 460 ml 350 ml Constitutional: alert, oriented, obese Psych: no complaints, nl mood/affect Respiratory: clear to auscultation, normal air movement Cardiovascular: regular rate and rhythm; No edema, No murmurs/extra sounds, No rub Gastrointestinal: soft, nl liver, spleen, non-tender, bowel sounds; No mass, No rebound or guarding Musculoskeletal: swelling (RUE distal to elbow); No nl extremities to inspection Extremities: No cyanosis, No clubbing, No edema Neurological: INSIGHTS STRATEGIST II-XII intact, nl mental status, nl speech, nl strength Skin: rash or lesions (redness and warmth and induration R breast) Additional Comments Bedside Glucose - 72 Hours Test 07/10/18 21:12 07/11/18 08:00 07/11/18 12:55 07/11/18 17:40 Bedside 105 120 111 106 Glucose mg/dL (70-220) mg/dL (70-220) mg/dL (70-220) mg/dL (70-220) Test 07/11/18 20:55 07/12/18 08:11 07/12/18 11:50 07/12/18 17:24 Bedside 145 126 117 108 Glucose mg/dL (70-220) mg/dL (70-220) mg/dL (70-220) mg/dL (70-220) Test 07/12/18 21:05 07/13/18 07:51 07/13/18 12:05 07/13/18 17:47 Bedside 134 113 105 108 Glucose mg/dL (70-220) mg/dL (70-220) mg/dL (70-220) mg/dL (70-220) Results Result Diagram: 07/13/18 0432 07/13/18 0432 Results 24hrs Laboratory Tests Test 07/12/18 21:05 07/13/18 04:32 07/13/18 07:51 07/13/18 12:05 Bedside Glucose 134 113 105 White Blood Count 4.1 L Red Blood Count 3.94 L Hemoglobin 11.6 L Hematocrit 36.8 L Mean Corpuscular 93.4 Volume Mean Corpuscular 29.4 Hemoglobin Mean Corpuscular 31.5 L Hemoglobin Concent Red Cell 15.7 H Distribution Width Platelet Count 220 Mean Platelet Volume 10.0 Immature 0.500 H Granulocytes % Neutrophils % 57.5 Lymphocytes % 24.9 Monocytes % 10.4 Eosinophils % 5.7 Basophils % 1.0 Nucleated Red Blood 0.0 Cells % Immature 0.020 Granulocytes # Neutrophils # 2.3 Lymphocytes # 1.0 Monocytes # 0.4 Eosinophils # 0.2 Basophils # 0.0 Nucleated Red Blood 0.0 Cells # Sodium Level 140 Potassium Level 4.0 Chloride Level 106 Carbon Dioxide Level 26 Anion Gap 8 Blood Urea Nitrogen 21 H Creatinine 0.88 Est Glomerular > 60 Filtrat Rate mL/min Glucose Level 123 Calcium Level 9.1 Phosphorus Level 3.7 Magnesium Level 1.8 Test 07/13/18 17:47 Bedside Glucose 108 Medications Medication Current Medications Amlodipine Besylate (Norvasc) 10 mg DAILY PO Last administered on 07/13/18 08:23; Admin Dose 10 MG; Start 07/10/18 at 09:00 Aspirin (Halfprin) 81 mg DAILY PO Last administered on 07/13/18 08:22; Admin Dose 81 MG; Start 07/10/18 at 09:00 Atorvastatin Calcium (Lipitor) 40 mg QHS PO Last administered on 07/12/18 21:12; Admin Dose 40 MG; Start 07/09/18 at 21:00 Cilostazol (Pletal) 100 mg BID PO Last administered on 07/13/18 08:22; Admin Dose 100 MG; Start 07/09/18 at 21:00 Hydrochlorothiazide (Hydrochlorothiazide) 25 mg DAILY PO Last administered on 07/13/18 08:22; Admin Dose 25 MG; Start 07/10/18 at 09:00 Levothyroxine Sodium (Synthroid) 25 mcg BEFORE BREAKFAST PO Last administered on 07/13/18 06:22; Admin Dose 25 MCG; Start 07/10/18 at 07:00 Losartan Potassium (Cozaar) 50 mg DAILY PO Last administered on 07/13/18 0 8:23; Admin Dose 50 MG; Start 07/10/18 at 09:00 Metoprolol Succinate (Toprol Xl) 50 mg DAILY PO Last administered on 07/13/18 08:23; Admin Dose 50 MG; Start 07/10/18 at 09:00 Nortriptyline HCl (Aventyl) 10 mg HS PO Last administered on 07/12/18 21:12; Admin Dose 10 MG; Start 07/09/18 at 21:00 Tamsulosin HCl (Flomax) 0.4 mg HS PO Last administered on 07/12/18 21:12; Admin Dose 0.4 MG; Start 07/09/18 at 21:00 IV Flush (NS 3 ml) 3 ml PER PROTOCOL IV ; Start 07/09/18 at 15:30 Ondansetron HCl (Zofran Inj) 4 mg Q6H PRN IV NAUSEA/VOMITING; Start 07/09/18 at 15:30 Acetaminophen (Tylenol Tab) 650 mg Q6H PRN PO .PAIN 1-3 OR TEMP; Start 07/09/18 at 15:30 Acetaminophen/ Hydrocodone Bitart ([place] (5/325)) 1 tab Q6H PRN PO .PAIN 4-6; Start 07/09/18 at 15:30 Morphine Sulfate (morphine) 2 mg Q4H PRN IV .PAIN 7-10; Start 07/09/18 at 15:30 Vancomycin HCl (Vanco Iv Per Pharmacy) VANCOMYCIN PER PHARMACY PER PROTOCOL XX ; Start 07/09/18 at 15:30 Piperacillin Sod/ Tazobactam Sod 100 ml @ 200 mls/hr Q6 IVPB Last administered on 07/13/18at 18:05; Admin Dose 200 MLS/HR; Start 07/09/18 at 18:00 Metformin HCl (Glucophage Xr) 1,000 mg BID PO Last administered on 07/13/18 08:21; Admin Dose 1,000 MG; Start 07/09/18 at 21:00 Linagliptin (Tradjenta) 5 mg DAILY PO Last administered on 07/13/18 08:22; Admin Dose 5 MG; Start 07/10/18 at 09:00 Insulin Aspart (Novolog Insulin Pen) NOVOLOG *MILD* ALGORITHM WITH MEALS BEDTIME SC Last administered on 07/10/18at 12:53; Admin Dose 1 UNIT; Start 07/09/18 at 21:00 Miscellaneous Information 1 ea NOTE XX ; Start 07/09/18 at 20:30 Glucose (Glutose) 15 gm Q15M PRN PO DECREASED GLUCOSE; Start 07/09/18 at 20:30 Glucose (Glutose) 22.5 gm Q15M PRN PO DECREASED GLUCOSE; Start 07/09/18 at 20:30 Dextrose (D50w Syringe) 25 ml Q15M PRN IV DECREASED GLUCOSE; Start 07/09/18 at 20:30 Dextrose (D50w Syringe) 50 ml Q15M PRN IV DECREASED GLUCOSE; Start 07/09/18 at 20:30 Glucagon (Glucagen) 1 mg Q15M PRN IM DECREASED GLUCOSE; Start 07/09/18 at 20:30 Glucose (Glutose) 15 gm Q15M PRN BUCCAL DECREASED GLUCOSE; Start 07/09/18 at 20:30 Vancomycin HCl 1.5 gm/Sodium Chloride 250 ml @ 83.333 mls/ hr Q24H IVPB Last administered on 07/12/18at 21:08; Admin Dose 83.333 MLS/HR; Start 07/11/18 at 21:00 Nystatin (Nystatin Powder) 1 applic BID TOP Last administered on 07/13/18at 11:59; Admin Dose 1 APPLIC; Start 07/12/18 at 15:30 Miscellaneous Information (*Rx Drug Level Order Reminder*) MERLINO TR LEVEL PRIOR... 1999 ONCE XX ; Start 07/14/18 at 20:00; Stop 07/14/18 at 20:01 EDVIN MORGAN MD July 13, 2018 19:22
[2018-07-13] MEDS: ATORVASTATIN 40 MG TAB PO SCH (20:05)
[2018-07-13] MEDS: TAMSULOSIN (SR) 0.4 MG CAP PO SCH (20:06)
[2018-07-13] MEDS: NORTRIPTYLINE 10 MG CAP PO SCH (20:06)
[2018-07-13 20:11] VITALS: BP 140/71; PULSE 96; RESP 20
[2018-07-13] MEDS: VANCOMYCIN HCL 1.5 GM in SOD CHLORIDE 0.9% 250 ML IVPB SCH (21:15)
[2018-07-14] MEDS: PIPER-TAZO 3.375 GM IV (PMX) 100 ML IVPB SCH ×4 (00:33→17:34)
[2018-07-14] MEDS: LEVOTHYROXINE 25 MCG TAB PO SCH (06:08)
[2018-07-14 07:27] VITALS: BP 123/62; PULSE 112; RESP 20
[2018-07-14] MEDS: INSULIN ASPART [NOVOLOG] 3 ML PEN SC SCH ×4 (07:50→21:00)
[2018-07-14] MEDS: metFORMIN (XR) 500 MG TAB PO SCH ×2 (08:22→21:27)
[2018-07-14] MEDS: LINAGLIPTIN 5 MG TABLET PO SCH (08:22)
[2018-07-14] MEDS: ASPIRIN (EC) 81 MG TAB PO SCH (08:22)
[2018-07-14] MEDS: CILOSTAZOL 100 MG TAB PO SCH ×2 (08:23→21:28)
[2018-07-14] MEDS: LOSARTAN 50 MG TAB PO SCH (08:24)
[2018-07-14] MEDS: AMLODIPINE 10 MG TAB PO SCH (08:24)
[2018-07-14] MEDS: HYDROCHLOROTHIAZIDE 25 MG TAB PO SCH (08:25)
[2018-07-14] MEDS: METOPROLOL (XL) 50 MG TAB PO SCH (08:26)
[2018-07-14] MEDS: NYSTATIN 30 GM POWDER BTL TOP SCH ×2 (08:31→21:33)
[2018-07-14 14:23] VITALS: BP 122/58; PULSE 95; RESP 20
--- NOTE | 2018-07-14 14:48 | PN ---
Date/Time of Note Date/Time of Note DATE: 07/14/18 TIME: 14:47 Objective Vitals Vital Signs Date Temp Pulse Resp B/P (MAP) Pulse Ox O2 O2 Flow FiO2 Time Delivery Rate 07/14/18 98.4 95 20 122/58 98 14:23 (79) 07/12/18 Room Air 15:59 07/11/18 2.0 23:55 Intake and Output 07/13/18 07/13/18 07/14/18 1515:00 23:00 07:00 IntakeIntake Total 200 ml 100 ml 690 ml BalanceBalance 200 ml 100 ml 690 ml Results Result Diagram: 07/14/18 0437 07/14/187 Medications Medications Current Medications Amlodipine Besylate (Norvasc) 10 mg DAILY PO Last administered on 07/14/18 08:24; Admin Dose 10 MG; Start 07/10/18 at 09:00 Aspirin (Halfprin) 81 mg DAILY PO Last administered on 07/14/18 08:22; Admin Dose 81 MG; Start 07/10/18 at 09:00 Atorvastatin Calcium (Lipitor) 40 mg QHS PO Last administered on 07/13/18 20:05; Admin Dose 40 MG; Start 07/09/18 at 21:00 Cilostazol (Pletal) 100 mg BID PO Last administered on 07/14/18 08:23; Admin Dose 100 MG; Start 07/09/18 at 21:00 Hydrochlorothiazide (Hydrochlorothiazide) 25 mg DAILY PO Last administered on 07/14/18 08:25; Admin Dose 25 MG; Start 07/10/18 at 09:00 Levothyroxine Sodium (Synthroid) 25 mcg BEFORE BREAKFAST PO Last administered on 07/14/18 06:08; Admin Dose 25 MCG; Start 07/10/18 at 07:00 Losartan Potassium (Cozaar) 50 mg DAILY PO Last administered on 07/14/18 08:24; Admin Dose 50 MG; Start 07/10/18 at 09:00 Metoprolol Succinate (Toprol Xl) 50 mg DAILY PO Last administered on 07/14/18 08:26; Admin Dose 50 MG; Start 07/10/18 at 09:00 Nortriptyline HCl (Aventyl) 10 mg HS PO Last administered on 07/13/18 20:06; Admin Dose 10 MG; Start 07/09/18 at 21:00 Tamsulosin HCl (Flomax) 0.4 mg HS PO Last administered on 07/13/18at 20:06; Admin Dose 0.4 MG; Start 07/09/18 at 21:00 IV Flush (NS 3 ml) 3 ml PER PROTOCOL IV ; Start 07/09/18 at 15:30 Ondansetron HCl (Zofran Inj) 4 mg Q6H PRN IV NAUSEA/VOMITING; Start 07/09/18 at 15:30 Acetaminophen (Tylenol Tab) 650 mg Q6H PRN PO .PAIN 1-3 OR TEMP; Start 07/09/18 at 15:30 Acetaminophen/ Hydrocodone Bitart ([place] (5/325)) 1 tab Q6H PRN PO .PAIN 4-6; Start 07/09/18 at 15:30 Morphine Sulfate (morphine) 2 mg Q4H PRN IV .PAIN 7-10; Start 07/09/18 at 15:30 Vancomycin HCl (Vanco Iv Per Pharmacy) VANCOMYCIN PER PHARMACY PER PROTOCOL XX ; Start 07/09/18 at 15:30 Piperacillin Sod/ Tazobactam Sod 100 ml @ 200 mls/hr Q6 IVPB Last administered on 07/14/18at 12:18; Admin Dose 200 MLS/HR; Start 07/09/18 at 18:00 Metformin HCl (Glucophage Xr) 1,000 mg BID PO Last administered on 07/14/18at 08:22; Admin Dose 1,000 MG; Start 07/09/18 at 21:00 Linagliptin (Tradjenta) 5 mg DAILY PO Last administered on 07/14/18at 08:22; Admin Dose 5 MG; Start 07/10/18 at 09:00 Insulin Aspart (Novolog Insulin Pen) NOVOLOG *MILD* ALGORITHM WITH MEALS BEDTIME SC Last administered on 07/10/18at 12:53; Admin Dose 1 UNIT; Start 07/09/18 at 21:00 Miscellaneous Information 1 ea NOTE XX ; Start 07/09/18 at 20:30 Glucose (Glutose) 15 gm Q15M PRN PO DECREASED GLUCOSE; Start 07/09/18 at 20:30 Glucose (Glutose) 22.5 gm Q15M PRN PO DECREASED GLUCOSE; Start 07/09/18 at 20:30 Dextrose (D50w Syringe) 25 ml Q15M PRN IV DECREASED GLUCOSE; Start 07/09/18 at 20:30 Dextrose (D50w Syringe) 50 ml Q15M PRN IV DECREASED GLUCOSE; Start 07/09/18 at 20:30 Glucagon (Glucagen) 1 mg Q15M PRN IM DECREASED GLUCOSE; Start 07/09/18 at 20:30 Glucose (Glutose) 15 gm Q15M PRN BUCCAL DECREASED GLUCOSE; Start 07/09/18 at 20:30 Vancomycin HCl 1.5 gm/Sodium Chloride 250 ml @ 83.333 mls/ hr Q24H IVPB Last administered on 07/13/18at 21:15; Admin Dose 83.333 MLS/HR; Start 07/11/18 at 21:00 Nystatin (Nystatin Powder) 1 applic BID TOP Last administered on 07/14/18at 08:31; Admin Dose 1 APPLIC; Start 07/12/18 at 15:30 Miscellaneous Information (*Rx Drug Level Order Reminder*) VANCO TR LEVEL PRIOR... 1999 ONCE XX ; Start 07/14/18 at 20:00; Stop 07/14/18 at 20:01 VTE Prophylaxis Risk score (from Ns)>0 risk: 3 SCD applied (from [facility]): No SCD contraindication: other Lines/Catheters IV Catheter Type: Frazier in Place: No Assessment/Plan Hospital Course Subjective no acute complaints, Objective Physical exam General: Patient is laying in bed and answers questions appropriately Mentation: Patient is alert and oriented 4, Head: Normocephalic atraumatic Eyes: EOMI, pupils reactive to light Neck: Supple, nontender, midline Respiratory: Clear to auscultation bilaterally Cardiovascular: regular rate, no obvious murmurs Gastrointestinal: non-tender to palpation, bowel sounds heard. Neurological: Moves all extremities spontaneously Skin: Right breast area, erythematous, bandaged. Right upper extremity forearm erythematous, bandaged Assessment and plan Right breast cellulitis -Patient received mammogram outpatient, biopsy was done by general surgeon last week, patient attempted Keflex outpatient however continued to be erythematous and drained pus. -Broad-spectrum IV antibiotic -Infectious disease consulted -CT scan with contrast done, no abscess -Patient's general surgeon has been consulted, Dr. Mackay, biopsy done in office did not show any malignancy or other pure etiology Right forearm cellulitis -Subacute at this time, been going on for approximately 6 weeks -CT arm showing cellulitis, no abscess -Duplex venous negative for DVT Coronary artery disease with history of CABG in 1999 -Continue home medications Diabetes mellitus -Patient's subcontracts manager consulted, meds adjusted Hypothyroidism -Continue home meds Mood disorder -Continue home meds Dyslipidemia -Continue home meds Hypertension -Continue home meds Disposition -cont abx 1 more day, dc tomorrow REBECCA VO July 14, 2018 14:48
--- NOTE | 2018-07-14 18:12 | PN ---
Date/Time of Note Date/Time of Note DATE: 07/14/18 TIME: 18:10 Assessment/Plan Lines/Catheters IV Catheter Type (from Nrs): Frazier in Place (from Nrs): No Assessment/Plan Chief Complaint/Hosp Course 1. RUE and chest wall edema and erythema. DDx: cellulitis, vascular, infiltrating ca, other. Punch bx of skin done last week, results pending. Ultrasound right upper extremity negative for DVT, CT chest and right arm noted without abscess formation or foci of air; clinically improving Right breast biopsy 07/04/2018: Skin with reactive stromal fibroblasts,telangiectasia, dermal fibrosis and mild perivascular chronic inflammation. No malignancy -wound drainage cx right chest wall> NGTD -continue iv abx per ID -nutritional optimization 2. Right chest wall wound with dc at site of bx -as above -continue local care 3. Morbid obesity, BMI 55. Discussed with him surgical options of weight loss but he is not excited for surgery. 4. DMII, HTN, HL -nutritional optimization -weight loss encouraged 5. Back pain -weight loss encouraged -PT 6. Hypothyroidism -hormone repletion 7. CAD hx s/p 4x CABG -cardiac optimization -weight loss encouraged 8. Tachycardia: -monitor -w/u tx per medical team if persistent Thank you Subjective 24 Hr Interval Summary Occasional tachycardia. Right arm and chest redness and swelling continuing to improve. Still with intermittent drainage from arms and chest.no fevers, No congested cough, chest pain, palpitations, nausea, vomiting, new skin issues. Duplex noted. CT noted. Exam/Review of Systems Vital Signs Vitals Vital Signs Date Temp Pulse Resp B/P (MAP) Pulse Ox O2 O2 Flow FiO2 Time Delivery Rate 07/14/18 98.4 95 20 122/58 98 14:23 (79) 07/12/18 Room Air 15:59 07/11/18 2.0 23:55 Intake and Output 07/13/18 07/13/18 07/14/18 1515:00 23:00 07:00 IntakeIntake Total 200 ml 100 ml 690 ml BalanceBalance 200 ml 100 ml 690 ml Exam Free Text/Dictation Constitutional: alert, oriented, obese; No distress Psych: nl mood/affect; No anxiety, No confusion Head: normocephalic, atraumatic Eyes: nl conjunctiva, EOMI, PERRL; No icteric ENMT: nl external ears & nose, nl lips & teeth, mucosa pink and moist Neck: supple; No jvd Respiratory: normal air movement; No congested cough, No labored breathing, No wheezing Cardiovascular: regular rate and rhythm, edema (RUE and chest wall improved. BLE); drainage from right breast wound Gastrointestinal: soft, non-tender, other (Obese); No rebound or guarding Musculoskeletal: nl gait and stance; No nl extremities to inspection (RUE edema and erythema- improving), No joint tenderness Extremities: normal pulses, edema; No calf tenderness Neurological: nl mental status, nl speech, nl strength Skin: rash or lesions (RUE and chest wall blanching erythema-improving); No diaphoresis Lymph: nl lymph nodes, nontender Results Result Diagram: 07/14/18 0437 07/14/18 0437 JORGE MILES MD July 14, 2018 18:11
--- NOTE | 2018-07-14 18:44 | CONS ---
Assessment/Plan Assessment/Plan Hospital Course (Demo Recall) Hypothyroidism -continue levothyroxine 25mcg po daily T2DM -FS in target range -continue metformin 1000mg po BID -continue tradjenta 5mg po daily -continue novolog mild dose correction scale AC and HS Consultation Date/Type/Reason Admit Date/Time July 09, 2018 at 15:07 Initial Consult Date 07/09/18 Requesting Provider: REBECCA VO Date/Time of Note DATE: 07/14/18 TIME: 18:42 24 HR Interval Summary Free Text/Dictation Patient seen and examined at bedside. He underwent PT this morning with no issue. He feels well and offers no complaints. Exam/Review of Systems Exam Vitals Vital Signs Date Temp Pulse Resp B/P (MAP) Pulse Ox O2 O2 Flow FiO2 Time Delivery Rate 07/14/18 98.4 95 20 122/58 98 14:23 (79) 07/12/18 Room Air 15:59 07/11/18 2.0 23:55 Intake and Output 07/13/18 07/13/18 07/14/18 1515:00 23:00 07:00 IntakeIntake Total 200 ml 100 ml 690 ml BalanceBalance 200 ml 100 ml 690 ml Exam General: Comfortable in appearance, not in acute distress. Skin appropriate for ethnicity Eye: Extraocular movements are intact, Normal conjunctiva. HENT: Normocephalic, atraumatic. Respiratory: Respirations are non-labored, Breath sounds are equal, Symmetrical chest wall expansion. Cardiovascular: S1, S2. No murmur. No LE edema Gastrointestinal: Soft, Non-tender, Non-distended, Normal bowel sounds. Integumentary: Warm to touch. Neurologic: Alert, Oriented. Cognition and Speech: Speech clear and coherent, Functional cognition intact. Psychiatric: Cooperative, Appropriate mood & affect. Results Result Diagram: 07/14/18 0437 07/14/18 0437 Results 24hrs Laboratory Tests Test 07/13/18 20:03 07/14/18 04:37 07/14/18 07:45 07/14/18 12:17 Bedside Glucose 123 102 129 White Blood Count 3.9 L Red Blood Count 3.89 L Hemoglobin 11.4 L Hematocrit 36.8 L Mean Corpuscular 94.6 Volume Mean Corpuscular 29.3 Hemoglobin Mean Corpuscular 31.0 L Hemoglobin Concent Red Cell 15.6 H Distribution Width Platelet Count 206 Mean Platelet Volume 10.0 Immature 0.300 Granulocytes % Neutrophils % 56.1 Lymphocytes % 27.0 Monocytes % 10.7 Eosinophils % 4.6 Basophils % 1.3 Nucleated Red Blood 0.0 Cells % Immature 0.010 Granulocytes # Neutrophils # 2.2 Lymphocytes # 1.1 Monocytes # 0.4 Eosinophils # 0.2 Basophils # 0.1 Nucleated Red Blood 0.0 Cells # Sodium Level 140 Potassium Level 3.8 Chloride Level 107 Carbon Dioxide Level 26 Anion Gap 7 Blood Urea Nitrogen 21 H Creatinine 0.95 Est Glomerular > 60 Filtrat Rate mL/min Glucose Level 122 Calcium Level 9.1 Phosphorus Level 3.3 Magnesium Level 1.8 Test 07/14/18 17:33 Bedside Glucose 114 Medications Medication Current Medications Amlodipine Besylate (Norvasc) 10 mg DAILY PO Last administered on 07/14/18 08:24; Admin Dose 10 MG; Start 07/10/18 at 09:00 Aspirin (Halfprin) 81 mg DAILY PO Last administered on 07/14/18 08:22; Admin Dose 81 MG; Start 07/10/18 at 09:00 Atorvastatin Calcium (Lipitor) 40 mg QHS PO Last administered on 07/13/18 20:05; Admin Dose 40 MG; Start 07/09/18 at 21:00 Cilostazol (Pletal) 100 mg BID PO Last administered on 07/14/18 08:23; Admin Dose 100 MG; Start 07/09/18 at 21:00 Hydrochlorothiazide (Hydrochlorothiazide) 25 mg DAILY PO Last administered on 07/14/18 08:25; Admin Dose 25 MG; Start 07/10/18 at 09:00 Levothyroxine Sodium (Synthroid) 25 mcg BEFORE BREAKFAST PO Last administered on 07/14/18 06:08; Admin Dose 25 MCG; Start 07/10/18 at 07:00 Losartan Potassium (Cozaar) 50 mg DAILY PO Last administered on 07/14/18 08:24; Admin Dose 50 MG; Start 07/10/18 at 09:00 Metoprolol Succinate (Toprol Xl) 50 mg DAILY PO Last administered on 07/14/18 08:26; Admin Dose 50 MG; Start 07/10/18 at 09:00 Nortriptyline HCl (Aventyl) 10 mg HS PO Last administered on 07/13/18 20:06; Admin Dose 10 MG; Start 07/09/18 at 21:00 Tamsulosin HCl (Flomax) 0.4 mg HS PO Last administered on 07/13/18 20:06; Admin Dose 0.4 MG; Start 07/09/18 at 21:00 IV Flush (NS 3 ml) 3 ml PER PROTOCOL IV ; Start 07/09/18 at 15:30 Ondansetron HCl (Zofran Inj) 4 mg Q6H PRN IV NAUSEA/VOMITING; Start 07/09/18 at 15:30 Acetaminophen (Tylenol Tab) 650 mg Q6H PRN PO .PAIN 1-3 OR TEMP; Start 07/09/18 at 15:30 Acetaminophen/ Hydrocodone Bitart ([place] (5/325)) 1 tab Q6H PRN PO .PAIN 4-6; Start 07/09/18 at 15:30 Morphine Sulfate (morphine) 2 mg Q4H PRN IV .PAIN 7-10; Start 07/09/18 at 15:30 Vancomycin HCl (Vanco Iv Per Pharmacy) VANCOMYCIN PER PHARMACY PER PROTOCOL XX ; Start 07/09/18 at 15:30 Piperacillin Sod/ Tazobactam Sod 100 ml @ 200 mls/hr Q6 IVPB Last administered on 07/14/18at 17:34; Admin Dose 200 MLS/HR; Start 07/09/18 at 18:00 Metformin HCl (Glucophage Xr) 1,000 mg BID PO Last administered on 07/14/18 08:22; Admin Dose 1,000 MG; Start 07/09/18 at 21:00 Linagliptin (Tradjenta) 5 mg DAILY PO Last administered on 07/14/18 08:22; Admin Dose 5 MG; Start 07/10/18 at 09:00 Insulin Aspart (Novolog Insulin Pen) NOVOLOG *MILD* ALGORITHM WITH MEALS BEDTIME SC Last administered on 07/10/18at 12:53; Admin Dose 1 UNIT; Start 07/09/18 at 21:00 Miscellaneous Information 1 ea NOTE XX ; Start 07/09/18 at 20:30 Glucose (Glutose) 15 gm Q15M PRN PO DECREASED GLUCOSE; Start 07/09/18 at 20:30 Glucose (Glutose) 22.5 gm Q15M PRN PO DECREASED GLUCOSE; Start 07/09/18 at 20:30 Dextrose (D50w Syringe) 25 ml Q15M PRN IV DECREASED GLUCOSE; Start 07/09/18 at 20:30 Dextrose (D50w Syringe) 50 ml Q15M PRN IV DECREASED GLUCOSE; Start 07/09/18 at 20:30 Glucagon (Glucagen) 1 mg Q15M PRN IM DECREASED GLUCOSE; Start 07/09/18 at 20:30 Glucose (Glutose) 15 gm Q15M PRN BUCCAL DECREASED GLUCOSE; Start 07/09/18 at 20:30 Vancomycin HCl 1.5 gm/Sodium Chloride 250 ml @ 83.333 mls/ hr Q24H IVPB Last administered on 07/13/18at 21:15; Admin Dose 83.333 MLS/HR; Start 07/11/18 at 21:0 0 Nystatin (Nystatin Powder) 1 applic BID TOP Last administered on 07/14/18at 08:31; Admin Dose 1 APPLIC; Start 07/12/18 at 15:30 Miscellaneous Information (*Rx Drug Level Order Reminder*) MERLINO TR LEVEL PRIOR... 2000 ONCE XX ; Start 07/14/18 at 20:00; Stop 07/14/18 at 20:01 JOYCE JADE MD July 14, 2018 18:44
--- NOTE | 2018-07-14 18:47 | CONS ---
Assessment/Plan Assessment/Plan Hospital Course (Demo Recall) ID PROGRESS NOTE CURRENT ABX: DAY #=> Vanco IV + Zosyn 07/14/1843607/14/18 0437 24H INTERVAL SUMMARY * Awake, alert, responsive, watching TV, VSS, NAD, no complaints, no questions IMAGING * Upper extremity CT revealed moderate cellulitis no suggestion for abscess or necrotizing fasciitis please see full report in the chart CT of the chest revealed no abscess MICRO/OTHER * 07/10/18 CHEST WOUND CX (-) WOUND CULTURE Final No growth after 3 days * 07/10/18 BCX (-) * 07/09/18 BCX (-) PHYSICAL EXAMINATION: GENERAL: VSS, NAD HEENT: AT, NC, anicteric, NECK: Supple, CHEST: Equal chest rise bilaterally without dyspnea on observation HEART: Pulse RRR ABDOMEN: soft EXTREMITIES: Warm, dry == upper ext DSG/CHEST DSG C/D/I SKIN: No rash, no diaphoresis ID ASSESSMENT 68 yo M admit with: 1. Right upper extremity cellulitis 2. Chest wall cellulitis questionable abscess 3. Morbid obesity 4. Diabetes 5. Coronary artery disease status post CABG (-)MRSA Nares ABX ALLERGIES: KNDA INVASIVES: PIV CURRENT ABX: DAY # => Vanco IV + Zosyn ID RECOMMENDATIONS/PLAN: 1. Continue current ABX while in house 2. May DC on PO ABX when cleared by primary: PO Bactrim and Cipro for 10 more days . Consultation Date/Type/Reason Admit Date/Time July 09, 2018 at 15:07 Initial Consult Date 07/09/18 Requesting Provider: REBECCA VO Date/Time of Note DATE: 07/14/18 TIME: 18:47 Exam/Review of Systems Exam Vitals Vital Signs Date Temp Pulse Resp B/P (MAP) Pulse Ox O2 O2 Flow FiO2 Time Delivery Rate 07/14/18 98.4 95 20 122/58 98 14:23 (79) 07/12/18 Room Air 15:59 07/11/18 2.0 23:55 Intake and Output 07/13/18 07/13/18 07/14/18 1515:00 23:00 07:00 IntakeIntake Total 200 ml 100 ml 690 ml BalanceBalance 200 ml 100 ml 690 ml Results Result Diagram: 07/14/18 0437 07/14/18 0437 Results 24hrs Laboratory Tests Test 07/13/18 20:03 07/14/18 04:37 07/14/18 07:45 07/14/18 12:17 Bedside Glucose 123 102 129 White Blood Count 3.9 L Red Blood Count 3.89 L Hemoglobin 11.4 L Hematocrit 36.8 L Mean Corpuscular 94.6 Volume Mean Corpuscular 29.3 Hemoglobin Mean Corpuscular 31.0 L Hemoglobin Concent Red Cell 15.6 H Distribution Width Platelet Count 206 Mean Platelet Volume 10.0 Immature 0.300 Granulocytes % Neutrophils % 56.1 Lymphocytes % 27.0 Monocytes % 10.7 Eosinophils % 4.6 Basophils % 1.3 Nucleated Red Blood 0.0 Cells % Immature 0.010 Granulocytes # Neutrophils # 2.2 Lymphocytes # 1.1 Monocytes # 0.4 Eosinophils # 0.2 Basophils # 0.1 Nucleated Red Blood 0.0 Cells # Sodium Level 140 Potassium Level 3.8 Chloride Level 107 Carbon Dioxide Level 26 Anion Gap 7 Blood Urea Nitrogen 21 H Creatinine 0.95 Est Glomerular > 60 Filtrat Rate mL/min Glucose Level 122 Calcium Level 9.1 Phosphorus Level 3.3 Magnesium Level 1.8 Test 07/14/18 17:33 Bedside Glucose 114 Medications Medication Current Medications Amlodipine Besylate (Norvasc) 10 mg DAILY PO Last administered on 07/14/18 08:24; Admin Dose 10 MG; Start 07/10/18 at 09:00 Aspirin (Halfprin) 81 mg DAILY PO Last administered on 07/14/18 08:22; Admin Dose 81 MG; Start 07/10/18 at 09:00 Atorvastatin Calcium (Lipitor) 40 mg QHS PO Last administered on 07/13/18 20:05; Admin Dose 40 MG; Start 07/09/18 at 21:00 Cilostazol (Pletal) 100 mg BID PO Last administered on 07/14/18 08:23; Admin Dose 100 MG; Start 07/09/18 at 21:00 Hydrochlorothiazide (Hydrochlorothiazide) 25 mg DAILY PO Last administered on 07/14/18 08:25; Admin Dose 25 MG; Start 07/10/18 at 09:00 Levothyroxine Sodium (Synthroid) 25 mcg BEFORE BREAKFAST PO Last administered on 07/14/18 06:08; Admin Dose 25 MCG; Start 07/10/18 at 07:00 Losartan Potassium (Cozaar) 50 mg DAILY PO Last administered on 07/14/18 08:24; Admin Dose 50 MG; Start 07/10/18 at 09:00 Metoprolol Succinate (Toprol Xl) 50 mg DAILY PO Last administered on 07/14/18 08:26; Admin Dose 50 MG; Start 07/10/18 at 09:00 Nortriptyline HCl (Aventyl) 10 mg HS PO Last administered on 07/13/18 20:06; Admin Dose 10 MG; Start 07/09/18 at 21:00 Tamsulosin HCl (Flomax) 0.4 mg HS PO Last administered on 07/13/18 20:06; Admin Dose 0.4 MG; Start 07/09/18 at 21:00 IV Flush (NS 3 ml) 3 ml PER PROTOCOL IV ; Start 07/09/18 at 15:30 Ondansetron HCl (Zofran Inj) 4 mg Q6H PRN IV NAUSEA/VOMITING; Start 07/09/18 at 15:30 Acetaminophen (Tylenol Tab) 650 mg Q6H PRN PO .PAIN 1-3 OR TEMP; Start 07/09/18 at 15:30 Acetaminophen/ Hydrocodone Bitart ([place] (5/325)) 1 tab Q6H PRN PO .PAIN 4-6; Start 07/09/18 at 15:30 Morphine Sulfate (morphine) 2 mg Q4H PRN IV .PAIN 7-10; Start 07/09/18 at 15:30 Vancomycin HCl (Vanco Iv Per Pharmacy) VANCOMYCIN PER PHARMACY PER PROTOCOL XX ; Start 07/09/18 at 15:30 Piperacillin Sod/ Tazobactam Sod 100 ml @ 200 mls/hr Q6 IVPB Last administered on 07/14/18at 17:34; Admin Dose 200 MLS/HR; Start 07/09/18 at 18:00 Metformin HCl (Glucophage Xr) 1,000 mg BID PO Last administered on 07/14/18 08:22; Admin Dose 1,000 MG; Start 07/09/18 at 21:00 Linagliptin (Tradjenta) 5 mg DAILY PO Last administered on 07/14/18at 08:22; Admin Dose 5 MG; Start 07/10/18 at 09:00 Insulin Aspart (Novolog Insulin Pen) NOVOLOG *MILD* ALGORITHM WITH MEALS BEDTIME SC Last administered on 07/10/18at 12:53; Admin Dose 1 UNIT; Start 07/09/18 at 21:00 Miscellaneous Information 1 ea NOTE XX ; Start 07/09/18 at 20:30 Glucose (Glutose) 15 gm Q15M PRN PO DECREASED GLUCOSE; Start 07/09/18 at 20:30 Glucose (Glutose) 22.5 gm Q15M PRN PO DECREASED GLUCOSE; Start 07/09/18 at 20:30 Dextrose (D50w Syringe) 25 ml Q15M PRN IV DECREASED GLUCOSE; Start 07/09/18 at 20:30 Dextrose (D50w Syringe) 50 ml Q15M PRN IV DECREASED GLUCOSE; Start 07/09/18 at 20:30 Glucagon (Glucagen) 1 mg Q15M PRN IM DECREASED GLUCOSE; Start 07/09/18 at 20:30 Glucose (Glutose) 15 gm Q15M PRN BUCCAL DECREASED GLUCOSE; Start 07/09/18 at 20:30 Vancomycin HCl 1.5 gm/Sodium Chloride 250 ml @ 83.333 mls/ hr Q24H IVPB Last administered on 07/13/18at 21:15; Admin Dose 83.333 MLS/HR; Start 07/11/18 at 21:00 Nystatin (Nystatin Powder) 1 applic BID TOP Last administered on 07/14/18at 08:31; Admin Dose 1 APPLIC; Start 07/12/18 at 15:30 Miscellaneous Information (*Rx Drug Level Order Reminder*) JACK TR LEVEL PRIOR... 2000 ONCE XX ; Start 07/14/18 at 20:00; Stop 07/14/18 at 20:01 SHIRLENE WALKER NP July 14, 2018 18:47
[2018-07-14 19:34] VITALS: BP 133/62; PULSE 90; RESP 20
[2018-07-14] MEDS: NORTRIPTYLINE 10 MG CAP PO SCH (21:28)
[2018-07-14] MEDS: TAMSULOSIN (SR) 0.4 MG CAP PO SCH (21:28)
[2018-07-14] MEDS: ATORVASTATIN 40 MG TAB PO SCH (21:28)
[2018-07-14] MEDS: VANCOMYCIN HCL 1.5 GM in SOD CHLORIDE 0.9% 250 ML IVPB SCH (21:32)
[2018-07-15] MEDS: PIPER-TAZO 3.375 GM IV (PMX) 100 ML IVPB SCH ×2 (00:14→05:39)
[2018-07-15 01:14] VITALS: BP 145/63; PULSE 104; RESP 20
[2018-07-15] MEDS: LEVOTHYROXINE 25 MCG TAB PO SCH (05:40)
[2018-07-15 07:20] VITALS: BP 134/60; PULSE 114; RESP 20
[2018-07-15] MEDS: INSULIN ASPART [NOVOLOG] 3 ML PEN SC SCH ×2 (07:56→12:00)
[2018-07-15] MEDS: metFORMIN (XR) 500 MG TAB PO SCH (08:27)
[2018-07-15] MEDS: CILOSTAZOL 100 MG TAB PO SCH (08:28)
[2018-07-15] MEDS: ASPIRIN (EC) 81 MG TAB PO SCH (08:28)
[2018-07-15] MEDS: HYDROCHLOROTHIAZIDE 25 MG TAB PO SCH (08:28)
[2018-07-15] MEDS: LOSARTAN 50 MG TAB PO SCH (08:28)
[2018-07-15] MEDS: AMLODIPINE 10 MG TAB PO SCH (08:28)
[2018-07-15] MEDS: LINAGLIPTIN 5 MG TABLET PO SCH (08:28)
[2018-07-15] MEDS: NYSTATIN 30 GM POWDER BTL TOP SCH (08:29)
[2018-07-15] MEDS: METOPROLOL (XL) 50 MG TAB PO SCH (08:29)
[2018-07-15] MEDS ORDERED: VANCOMYCIN 1 GM 250 ML IVPB SCH (09:00)
[2018-07-15] MEDS ORDERED: TRIMETHOPRIM/SULFAMETHOX (DS) TAB PO SCH (10:30)
[2018-07-15] MEDS ORDERED: CIPROFLOXACIN 500 MG TAB PO SCH (10:30)
[2018-07-15] MEDS ORDERED: SULF-182 PO (10:50)
[2018-07-15] MEDS ORDERED: CIPR500T4 PO (10:50)
--- NOTE | 2018-07-15 10:50 | PDOCDIS ---
Discharge Instructions CONDITION [id number] Patient Condition: [id number] Stable FOLLOW UP/APPOINTMENTS Follow-up Plan 1. Please finish all antibiotic 2. Please follow-up with your primary care provider, spring coiling machine setter, farm machinery erector and general surgeon as soon as possible 3. Please continue all other home medications REBECCA VO July 15, 2018 10:50
--- NOTE | 2018-07-15 10:53 | DS ---
Date/Time of Note Date/Time of Note DATE: 07/15/18 TIME: 10:53 Discharge Summary Admission/Discharge Info Admit Date/Time July 09, 2018 at 15:07 Discharge Date/Time Patient Condition: Stable Hospital Course Patient is a male who was originally admitted for worsening right breast cellulitis and right arm cellulitis. Patient was seen by multiple specialists including his general surgeon, notereader, infectious disease. Patient's recent outpatient biopsy was negative for malignancy or other signs, only showed inflammation and fibrotic changes, patient's cellulitis continued to improve with IV antibiotic. CT was negative for any abscess, patient is feeling well and will be discharged with a course of oral antibiotics to follow-up with his primary care provider and general surgeon and brass chaser as soon as possible. Discharge diagnosis Right breast cellulitis, improving Right forearm cellulitis, improving Coronary artery disease with a history of CABG in 1999 Diabetes mellitus Hypothyroidism Mood disorder Dyslipidemia Hypertension Home Meds Active Scripts Sulfamethoxazole/Trimethoprim (Sulfamethoxazole-Tmp Ds Tablet) 1 Each Tablet, 1 TAB PO BID for 10 Days, #20 TAB Prov:REBECCA VO 07/15/18 Ciprofloxacin Hcl* (Ciprofloxacin Hcl*) 500 Mg Tablet, 500 MG PO BID for 10 Days, #20 TAB Prov:REBECCA VO 07/15/18 Reported Medications Aspirin* (Aspirin* EC) 81 Mg Tablet.dr, 81 MG PO DAILY, TAB 07/09/18 Levothyroxine Sodium* (Levothyroxine Sodium*) 25 Mcg Tablet, 25 MCG PO BEFORE BREAKFAST, #30 TAB 07/09/18 Tamsulosin Hcl* (Flomax*) 0.4 Mg Cap.er.24h, 0.4 MG PO HS, CAP 07/09/18 Nortriptyline Hcl* (Nortriptyline Hcl*) 10 Mg Capsule, 10 MG PO HS, CAP 07/09/18 Pioglitazone Hcl* (Pioglitazone Hcl*) 45 Mg Tablet, 45 MG PO DAILY, TAB 07/09/18 Atorvastatin* (Atorvastatin*) 40 Mg Tablet, 40 MG PO QHS, #30 TAB 07/09/18 Metoprolol Succinate* (Toprol XL*) 50 Mg Tab.er.24h, 50 MG PO DAILY, #30 TAB 07/09/18 Hydrochlorothiazide* (Hydrochlorothiazide*) 25 Mg Tab, 25 MG PO DAILY, #30 TAB 07/09/18 Metformin Hcl* (Metformin Hcl*) 1,000 Mg Tablet, 1000 MG PO WITH BREAKFAST DINNE, #60 TAB 07/09/18 Cilostazol* (Cilostazol*) 100 Mg Tablet, 100 MG PO BID, TAB 07/09/18 Amlodipine Besylate* (Norvasc*) 10 Mg Tablet, 10 MG PO DAILY, TAB 07/09/18 Losartan Potassium* (Losartan Potassium*) 50 Mg Tablet, 50 MG PO DAILY, TAB 07/09/18 Discontinued Reported Medications Amitriptyline Hcl* (Amitriptyline Hcl*) 10 Mg Tablet 02/08/10 Rosuvastatin Calcium* (Crestor*) 5 Mg Tablet 02/08/10 Aspirin (Adult Aspirin) 81 Mg Tab.chew 02/08/10 Pioglitazone Hcl* (Actos*) 15 Mg Tablet 02/08/10 Felodipine* (Felodipine*) 2.5 Mg Tab.sr.24h 02/08/10 Benazepril Hcl* (Benazepril Hcl*) 5 Mg Tablet 02/08/10 Hydrochlorothiazide (Hydrochlorothiazide) 25 Mg Tablet 02/08/10 Metoprolol Tartrate* (Lopressor* Inj) 5 Mg/5 Ml Soln 02/08/10 Metformin* (Glucophage* XR) 500 Mg Tab.sr.24h 02/08/10 Follow-up Plan 1. Please finish all antibiotic 2. Please follow-up with your primary care provider, notereader, brass chaser and general surgeon as soon as possible 3. Please continue all other home medications Primary Care Provider Chet Avila Time spent on discharge: > 30 minutes Pending Labs Laboratory Tests Test 07/14/18 12:17 07/14/18 17:33 07/14/18 19:49 07/14/18 21:26 Bedside 129 114 119 Glucose mg/dL (70-220) mg/dL (70-220) mg/dL (70-220) Vancomycin 10.2 Level Trough ug/ml (10.0-20 .0) Test 07/15/18 05:39 07/15/18 07:55 White Blood 4.3 Count 10^3/ul (4.8-10 .8) Red Blood 4.00 Count 10^6/ul (4.70-6 .10) Hemoglobin 11.7 g/dl (14.0-18.0 ) Hematocrit 37.5 % (42.0-52.0) Mean 93.8 Corpuscular fl (82.0-101.0) Volume Mean 29.3 Corpuscular pg (29.0-33.0) Hemoglobin Mean 31.2 Corpuscular g/dl (32.0-37.0 Hemoglobin Conc ) ent Red Cell 15.8 Distribution % (11.5-14.5) Width Platelet Count 225 10^3/UL (140-41 5) Mean Platelet 9.9 Volume fl (7.4-10.4) Immature 0.500 Granulocytes % % (0.001-0.429) Neutrophils % 59.5 % (39.0-77.0) Lymphocytes % 23.1 % (15.0-51.0) Monocytes % 10.9 % (0.0-11.0) Eosinophils % 4.8 % (0.0-7.0) Basophils % 1.2 % (0.0-2.0) Nucleated Red 0.0 Blood Cells % /100WBC (0.0-0. 0) Immature 0.020 Granulocytes # 10^3/ul (0.0-0. 031) Neutrophils # 2.6 10^3/ul (1.6-7. 5) Lymphocytes # 1.0 10^3/ul (0.8-2. 9) Monocytes # 0.5 10^3/ul (0.3-0. 9) Eosinophils # 0.2 10^3/ul (0.0-0. 5) Basophils # 0.1 10^3/ul (0.0-0. 1) Nucleated Red 0.0 Blood Cells # 10^3/ul (0.0-0. 0) Sodium Level 140 mmol/L (135-144 ) Potassium 4.2 Level mmol/L (3.5-5.1 ) Chloride Level 107 mmol/L (97-110) Carbon Dioxide 25 Level mmol/L (21-31) Anion Gap 8 (5-13) Blood Urea 23 mg/dl (7-20) Nitrogen Creatinine 0.90 mg/dl (0.61-1.2 4) Est Glomerular > 60 Filtrat mL/min (>60) Rate mL/min Glucose Level 102 mg/dl (70-220) Calcium Level 9.2 mg/dl (8.4-10.2 ) Phosphorus 3.7 Level mg/dl (2.5-4.9) Magnesium 1.8 Level mg/dl (1.7-2.5) Bedside 95 Glucose mg/dL (70-220) REBECCA VO July 15, 2018 10:53
[2018-07-15] MEDS ORDERED: VANCOMYCIN HCL 1.5 GM in SOD CHLORIDE 0.9% 250 ML IVPB SCH (21:00)
--- NOTE | 2018-07-15 23:35 | PN ---
Date/Time of Note Date/Time of Note DATE: 07/15/18 TIME: 23:34 Assessment/Plan Lines/Catheters IV Catheter Type (from Nrs): Saline Lock Frazier in Place (from Nrs): No Assessment/Plan Chief Complaint/Hosp Course 1. RUE and chest wall edema and erythema. DDx: cellulitis, vascular, infiltrating ca, other. Punch bx of skin done last week, results pending. Ultrasound right upper extremity negative for DVT, CT chest and right arm noted without abscess formation or foci of air; clinically improving Right breast biopsy 07/04/2018: Skin with reactive stromal fibroblasts,telangiectasia, dermal fibrosis and mild perivascular chronic inflammation. No malignancy -wound drainage cx right chest wall> NGTD -continue iv abx per ID -nutritional optimization 2. Right chest wall wound with dc at site of bx -as above -continue local care 3. Morbid obesity, BMI 55. Discussed with him surgical options of weight loss but he is not excited for surgery. 4. DMII, HTN, HL -nutritional optimization -weight loss encouraged 5. Back pain -weight loss encouraged -PT 6. Hypothyroidism -hormone repletion 7. CAD hx s/p 4x CABG -cardiac optimization -weight loss encouraged 8. Tachycardia: -monitor -w/u tx per medical team if persistent Thank you Late entry Subjective 24 Hr Interval Summary Occasional tachycardia. Right arm and chest redness and swelling continuing to improve. Still with intermittent drainage from arms and chest.no fevers, No congested cough, chest pain, palpitations, nausea, vomiting, new skin issues. Duplex noted. CT noted. Exam/Review of Systems Vital Signs Vitals Vital Signs Date Temp Pulse Resp B/P (MAP) Pulse Ox O2 O2 Flow FiO2 Time Delivery Rate 07/15/18 98.0 114 20 134/60 96 07:20 (84) 07/12/18 Room Air 15:59 07/11/18 2.0 23:55 Intake and Output 07/14/18 07/14/18 07/15/18 1515:00 23:00 07:00 IntakeIntake Total 868 ml 1068 ml 400 ml BalanceBalance 868 ml 1068 ml 400 ml Exam Free Text/Dictation Constitutional: alert, oriented, obese; No distress Psych: nl mood/affect; No anxiety, No confusion Head: normocephalic, atraumatic Eyes: nl conjunctiva, EOMI, PERRL; No icteric ENMT: nl external ears & nose, nl lips & teeth, mucosa pink and moist Neck: supple; No jvd Respiratory: normal air movement; No congested cough, No labored breathing, No wheezing Cardiovascular: regular rate and rhythm, edema (RUE and chest wall improved. BLE); drainage from right breast wound Gastrointestinal: soft, non-tender, other (Obese); No rebound or guarding Musculoskeletal: nl gait and stance; No nl extremities to inspection (RUE edema and erythema- improving), No joint tenderness Extremities: normal pulses, edema; No calf tenderness Neurological: nl mental status, nl speech, nl strength Skin: rash or lesions (RUE and chest wall blanching erythema-improving); No diaphoresis Lymph: nl lymph nodes, nontender Results Result Diagram: 07/15/18 0539 07/15/18 0539 JORGE MILES MD July 15, 2018 23:35
== END 2018-07-15 13:01 | disposition home or self-care (01) | DRG 600 ==
LOC: E/R 10:30 → 2NE 15:07
PROVIDERS: ADMIT Internal Medicine; ATTEND Internal Medicine
DX: N61.0 Mastitis without abscess (principal); Z68.43 Body mass index [BMI] 50.0-59.9, adult; L03.113 Cellulitis of right upper limb; I25.10 Atherosclerotic heart disease of native coronary artery without angina pectoris; Z95.1 Presence of aortocoronary bypass graft; E11.9 Type 2 diabetes mellitus without complications; E03.9 Hypothyroidism, unspecified; F39 Unspecified mood [affective] disorder; E78.5 Hyperlipidemia, unspecified; I10 Essential (primary) hypertension; N40.0 Benign prostatic hyperplasia without lower urinary tract symptoms
CPT/HCPCS: 36415; 71260; 73200; 80048; 80053; 80061; 80202; 82962; 83036; 83735; 84100; 84443; 85025; 87070; 87081; 93971; 96374; J1815; J2543; J3370; J7030; J7040; J7050; Q9967

== ENCOUNTER → 2018-10-16 | Outpatient (CLI) | payer MEDICARE, OTHER ==
[~2018-10-16] MED LIST changes: -AMIT10TA6; +AMLO-218 PO; -ASPI-727; +ASPI-817 PO; +ATOR40TA68 PO; -BENA5TAB33; +CILO100T PO; +CIPR500T4 PO; -CRES5; -FELO2.5T3; -HYDR25TA6; +HYDR25TA6 PO; +LEVO25TA6 PO; +LOSA50TA14 PO; +METF100010 PO; -METF500T3; +METO-319 PO; -METO5VIA28; +NORT10CA2 PO; -PIOG15TA12; +PIOG45TA64 PO; +SULF-182 PO; +TAMS-14 PO
== END | disposition home or self-care (01) ==
LOC: PUL 12:20
PROVIDERS: ATTEND Family Medicine
DX: R06.02 Shortness of breath (principal); E03.9 Hypothyroidism, unspecified
CPT/HCPCS: 36600; 82803; 84443